=== PATIENT | male | born 1940 | race Caucasian/White ===

== ENCOUNTER → 2017-08-04 09:12 | Outpatient (CLI) | payer MEDICARE, SELFPAY ==
[2017-08-04 11:02] LABS: Absolute Lymphocyte Count 1.96 X10^3/ul (0.83-4.51); Absolute Neutrophil Count 5.1 X10^3/uL (2.0-7.7); Basophil# 0.06 X10^3/uL; Basophil% 0.7 % (0-1); Eosinophil# 0.18 X10^3/uL; Eosinophils% 2.1 % (0-5); Hematocrit 34.6 % (40-54); Hemoglobin 11.7 g/dl (13.0-16.5); Lymphocyte # 1.96 X10^3/ul (4.0); Lymphocyte % 23.2 % (19-41); Mean Corp Hgb Conc 33.8 g/gl (32-36); Mean Corpuscular Hgb 31.2 pg (27.0-32.0); Mean Corpuscular Volume 92.3 fL (80-94); Mean Platelet Vol. 11.7 fl (6.2-12.0); Monocyte# 1.06 X10^3/uL; Monocyte% 12.5 % (0-10); Neutrophil # 5.13 X10^3/uL (2.7-7.7); Neutrophil % 60.8 % (47-70); Platelet Count 226 K/mm3 (150-450); RBC Distribution Width CV 15.1 % (11.6-14.6); RBC Distribution Width SD 48.8 fl (35.1-43.9); Red Blood Count 3.75 M/mm3 (4.6-6.2); White Blood Count 8.5 K/mm3 (4.4-11.0)
[2017-08-04 11:12] LABS: POSITIVE COUNT NO; POSITIVE DIFFERENTIAL NO; POSITIVE MORPHOLOGY NO
[2017-08-04 11:28] LABS: ALB/GLOB Ratio 1.1 RATIO (0.9-2.4); AST(SGOT) 19 U/L (15-37); Alanine Aminotransfer ALT/SGPT 23 U/L (16-61); Albumin, Serum 3.9 g/dL (3.2-5.0); Alkaline Phosphatase 88 U/L (45-117); Anion Gap 7 (5-15); BUN 30 mg/dL (7-18); BUN/Creat Ratio 23.6 RATIO (10-20); Calcium,Total 8.8 mg/dL (8.5-10.1); Chloride 108 mmol/L (98-107); Creatinine, Serum 1.27 mg/dL (0.70-1.30); EST Glomerular Filtration Rate 59 mL/min (>60); Est Glom Filt Rate - Afr Amer 71 mL/min (>60); Globulin 3.6 g/dL (2.2-4.2); Glucose 117 mg/dL (74-106); PSA,Total - Annual Screen 2.12 ng/mL (0.00-4.00); Potassium 4.1 mmol/L (3.5-5.1); Protein, Total 7.5 g/dL (6.4-8.2); Sodium Level 140 mmol/L (136-145)
== END ==
PROVIDERS: Family Provider Family Medicine Geriatric Medicine; PCP Family Medicine Geriatric Medicine; Visit Provider Internal Medicine Rheumatology
DX: Z12.5 Encounter for screening for malignant neoplasm of prostate (principal); M06.4 Inflammatory polyarthropathy; K21.9 Gastro-esophageal reflux disease without esophagitis; I10 Essential (primary) hypertension; E11.9 Type 2 diabetes mellitus without complications; E78.5 Hyperlipidemia, unspecified; N40.1 Benign prostatic hyperplasia with lower urinary tract symptoms; Z79.899 Other long term (current) drug therapy
CPT/HCPCS: 36415; 80053; 84153; 85025; G0103

== ENCOUNTER → 2017-10-05 14:45 | Outpatient (CLI) | payer MEDICARE, SELFPAY ==
--- NOTE | 2017-10-05 14:45 | DT_ITS ---
This patient was seen during an EMR downtime October 05, 2017 - October 12, 2017. This patient may have a combination of paper and electronic documentation or all paper documentation. All documentation is viewable within the e-chart portion of eflow for each patient visit.
[2017-10-12 17:43] LABS: Albumin, Serum 3.8 g/dL (3.2-5.0); BUN 16 mg/dL (7-18); BUN/Creat Ratio 12.4 RATIO (10-20); Calcium,Total 8.6 mg/dL (8.5-10.1); Chloride 111 mmol/L (98-107); Creatinine, Serum 1.29 mg/dL (0.70-1.30); EST Glomerular Filtration Rate 58 mL/min (>60); Est Glom Filt Rate - Afr Amer 70 mL/min (>60); Glucose 74 mg/dL (74-106); Phosphorus 3.2 mg/dL (2.5-4.9); Potassium 3.7 mmol/L (3.5-5.1); Sodium Level 140 mmol/L (136-145)
== END ==
PROVIDERS: Family Provider Family Medicine Geriatric Medicine; PCP Family Medicine Geriatric Medicine; Visit Provider Internal Medicine Nephrology
DX: E11.22 Type 2 diabetes mellitus with diabetic chronic kidney disease (principal); N18.3 Chronic kidney disease, stage 3 (moderate)
CPT/HCPCS: 36415; 80069; 82043; 82570

== ENCOUNTER → 2017-11-03 11:16 | Outpatient (CLI) | payer MEDICARE, SELFPAY ==
[2017-11-03 14:28] LABS: AST(SGOT) 23 U/L (15-37); Absolute Lymphocyte Count 2.36 X10^3/ul (0.83-4.51); Absolute Neutrophil Count 4.2 X10^3/uL (2.0-7.7); Alanine Aminotransfer ALT/SGPT 29 U/L (16-61); Albumin, Serum 3.7 g/dL (3.2-5.0); Alkaline Phosphatase 84 U/L (45-117); Anion Gap 11 (5-15); BUN 20 mg/dL (7-18); BUN/Creat Ratio 15.4 RATIO (10-20); Basophil# 0.06 X10^3/uL; Basophil% 0.8 % (0-1); Calcium,Total 8.3 mg/dL (8.5-10.1); Chloride 107 mmol/L (98-107); EST Glomerular Filtration Rate 57 mL/min (>60); Eosinophil# 0.21 X10^3/uL; Eosinophils% 2.7 % (0-5); Est Glom Filt Rate - Afr Amer 69 mL/min (>60); Globulin 3.6 g/dL (2.2-4.2); Glucose 86 mg/dL (74-106); Hematocrit 32.3 % (40-54); Hemoglobin 10.8 g/dl (13.0-16.5); Lymphocyte # 2.36 X10^3/ul (4.0); Lymphocyte % 30.8 % (19-41); Mean Corp Hgb Conc 33.4 g/gl (32-36); Mean Corpuscular Hgb 30.4 pg (27.0-32.0); Mean Platelet Vol. 11.1 fl (6.2-12.0); Monocyte# 0.79 X10^3/uL; Monocyte% 10.3 % (0-10); Neutrophil # 4.19 X10^3/uL (2.7-7.7); Neutrophil % 54.7 % (47-70); Platelet Count 229 K/mm3 (150-450); Potassium 3.6 mmol/L (3.5-5.1); Protein, Total 7.3 g/dL (6.4-8.2); RBC Distribution Width CV 15.8 % (11.6-14.6); RBC Distribution Width SD 51.6 fl (35.1-43.9); Red Blood Count 3.55 M/mm3 (4.6-6.2); Sodium Level 141 mmol/L (136-145); White Blood Count 7.7 K/mm3 (4.4-11.0)
[2017-11-03 14:31] LABS: POSITIVE COUNT NO; POSITIVE DIFFERENTIAL NO; POSITIVE MORPHOLOGY NO
== END ==
PROVIDERS: Family Provider Family Medicine Geriatric Medicine; PCP Family Medicine Geriatric Medicine; Visit Provider Internal Medicine Rheumatology
DX: M06.4 Inflammatory polyarthropathy (principal); K21.9 Gastro-esophageal reflux disease without esophagitis; I10 Essential (primary) hypertension; E11.9 Type 2 diabetes mellitus without complications; E78.5 Hyperlipidemia, unspecified; N40.1 Benign prostatic hyperplasia with lower urinary tract symptoms; Z79.899 Other long term (current) drug therapy
CPT/HCPCS: 36415; 80053; 85025

== ENCOUNTER → 2017-11-09 11:22 | Outpatient (CLI) | payer MEDICARE, SELFPAY ==
[2017-11-09 12:57] LABS: Vitamin D,25 Hydroxy 13.2 ng/mL (29.95-100.01)
[2017-11-09 12:59] LABS: ALB/GLOB Ratio 1.1 RATIO (0.9-2.4); AST(SGOT) 22 U/L (15-37); Alanine Aminotransfer ALT/SGPT 29 U/L (16-61); Albumin, Serum 3.9 g/dL (3.2-5.0); Alkaline Phosphatase 82 U/L (45-117); Anion Gap 8 (5-15); BUN 22 mg/dL (7-18); BUN/Creat Ratio 17.2 RATIO (10-20); Calcium,Total 8.6 mg/dL (8.5-10.1); Chloride 108 mmol/L (98-107); Creatinine, Serum 1.28 mg/dL (0.70-1.30); EST Glomerular Filtration Rate 58 mL/min (>60); Est Glom Filt Rate - Afr Amer 70 mL/min (>60); Globulin 3.7 g/dL (2.2-4.2); Glucose 79 mg/dL (74-106); Protein, Total 7.6 g/dL (6.4-8.2); Sodium Level 141 mmol/L (136-145); Thyroid Stim Hormone (TSH) 1.13 uIU/mL (0.358-3.74)
[2017-11-09 13:07] LABS: Absolute Lymphocyte Count 2.08 X10^3/ul (0.83-4.51); Absolute Neutrophil Count 4.1 X10^3/uL (2.0-7.7); Basophil# 0.09 X10^3/uL; Basophil% 1.2 % (0-1); Eosinophils% 2.7 % (0-5); Hematocrit 35.8 % (40-54); Hemoglobin 11.7 g/dl (13.0-16.5); Lymphocyte # 2.08 X10^3/ul (4.0); Lymphocyte % 27.9 % (19-41); Mean Corp Hgb Conc 32.7 g/gl (32-36); Mean Corpuscular Hgb 30.2 pg (27.0-32.0); Mean Corpuscular Volume 92.3 fL (80-94); Mean Platelet Vol. 11.4 fl (6.2-12.0); Monocyte# 0.92 X10^3/uL; Monocyte% 12.3 % (0-10); Neutrophil # 4.13 X10^3/uL (2.7-7.7); Neutrophil % 55.4 % (47-70); Platelet Count 233 K/mm3 (150-450); RBC Distribution Width CV 15.9 % (11.6-14.6); RBC Distribution Width SD 53.3 fl (35.1-43.9); Red Blood Count 3.88 M/mm3 (4.6-6.2); White Blood Count 7.5 K/mm3 (4.4-11.0)
[2017-11-09 13:09] LABS: POSITIVE COUNT NO; POSITIVE DIFFERENTIAL NO; POSITIVE MORPHOLOGY NO
== END ==
PROVIDERS: Family Provider Family Medicine Geriatric Medicine; PCP Family Medicine Geriatric Medicine; Visit Provider Family Medicine Geriatric Medicine
DX: E11.9 Type 2 diabetes mellitus without complications (principal); E23.6 Other disorders of pituitary gland; E55.9 Vitamin D deficiency, unspecified; I10 Essential (primary) hypertension
CPT/HCPCS: 36415; 80053; 82306; 84403; 84443; 85025

== ENCOUNTER → 2018-02-01 11:03 | Outpatient (CLI) | payer MEDICARE, SELFPAY ==
[2018-02-01 12:12] LABS: Absolute Lymphocyte Count 2.18 X10^3/ul (0.83-4.51); Absolute Neutrophil Count 4.7 X10^3/uL (2.0-7.7); Basophil# 0.05 X10^3/uL; Basophil% 0.6 % (0-1); Eosinophils% 2.5 % (0-5); Hematocrit 34.9 % (40-54); Hemoglobin 11.5 g/dl (13.0-16.5); Lymphocyte # 2.18 X10^3/ul (4.0); Lymphocyte % 26.9 % (19-41); Mean Corpuscular Volume 91.1 fL (80-94); Mean Platelet Vol. 11.3 fl (6.2-12.0); Monocyte# 0.98 X10^3/uL; Monocyte% 12.1 % (0-10); Neutrophil # 4.65 X10^3/uL (2.7-7.7); Neutrophil % 57.5 % (47-70); Platelet Count 201 K/mm3 (150-450); RBC Distribution Width CV 15.7 % (11.6-14.6); RBC Distribution Width SD 51.4 fl (35.1-43.9); Red Blood Count 3.83 M/mm3 (4.6-6.2); White Blood Count 8.1 K/mm3 (4.4-11.0)
[2018-02-01 12:22] LABS: POSITIVE COUNT NO; POSITIVE DIFFERENTIAL NO; POSITIVE MORPHOLOGY NO
[2018-02-01 12:32] LABS: ALB/GLOB Ratio 1.2 RATIO (0.9-2.4); AST(SGOT) 17 U/L (15-37); Alanine Aminotransfer ALT/SGPT 25 U/L (16-61); Albumin, Serum 4.1 g/dL (3.2-5.0); Alkaline Phosphatase 77 U/L (45-117); Anion Gap 8 (5-15); BUN 24 mg/dL (7-18); Calcium,Total 8.7 mg/dL (8.5-10.1); Chloride 105 mmol/L (98-107); Creatinine, Serum 1.33 mg/dL (0.70-1.30); EST Glomerular Filtration Rate 56 mL/min (>60); Est Glom Filt Rate - Afr Amer 67 mL/min (>60); Globulin 3.5 g/dL (2.2-4.2); Glucose 84 mg/dL (74-106); Potassium 3.9 mmol/L (3.5-5.1); Protein, Total 7.6 g/dL (6.4-8.2); Sodium Level 138 mmol/L (136-145)
== END ==
PROVIDERS: Family Provider Family Medicine Geriatric Medicine; PCP Family Medicine Geriatric Medicine; Referring Provider Internal Medicine Rheumatology; Visit Provider Internal Medicine Rheumatology
DX: M06.4 Inflammatory polyarthropathy (principal); K21.9 Gastro-esophageal reflux disease without esophagitis; I10 Essential (primary) hypertension; E11.9 Type 2 diabetes mellitus without complications; E78.5 Hyperlipidemia, unspecified; N40.1 Benign prostatic hyperplasia with lower urinary tract symptoms; Z79.899 Other long term (current) drug therapy
CPT/HCPCS: 36415; 80053; 85025

== ENCOUNTER → 2018-05-05 11:30 | Outpatient (CLI) | payer MEDICARE, SELFPAY ==
[2017-05-24 11:01] VITALS: BMI 33.5
[2018-05-05 13:08] LABS: Absolute Lymphocyte Count 2.26 X10^3/ul (0.83-4.51); Basophil% 0.8 % (0-1); Eosinophils% 1.7 % (0-5); Hematocrit 32.5 % (40-54); Hemoglobin 10.9 g/dl (13.0-16.5); Lymphocyte # 2.26 X10^3/ul (4.0); Lymphocyte % 18.8 % (19-41); Mean Corp Hgb Conc 33.5 g/gl (32-36); Mean Corpuscular Hgb 31.2 pg (27.0-32.0); Mean Corpuscular Volume 93.1 fL (80-94); Mean Platelet Vol. 11.3 fl (6.2-12.0); Monocyte% 10.8 % (0-10); Neutrophil % 66.4 % (47-70); Platelet Count 252 K/mm3 (150-450); RBC Distribution Width SD 48.5 fl (35.1-43.9); Red Blood Count 3.49 M/mm3 (4.6-6.2)
[2018-05-05 13:09] LABS: POSITIVE COUNT NO; POSITIVE DIFFERENTIAL NO; POSITIVE MORPHOLOGY NO
[2018-05-05 13:28] LABS: ALB/GLOB Ratio 1.1 RATIO (0.9-2.4); AST(SGOT) 23 U/L (15-37); Alanine Aminotransfer ALT/SGPT 27 U/L (16-61); Albumin, Serum 3.9 g/dL (3.2-5.0); Alkaline Phosphatase 84 U/L (45-117); Anion Gap 9 (5-15); BUN 23 mg/dL (7-18); BUN/Creat Ratio 17.3 RATIO (10-20); Calcium,Total 8.6 mg/dL (8.5-10.1); Chloride 108 mmol/L (98-107); Creatinine, Serum 1.33 mg/dL (0.70-1.30); EST Glomerular Filtration Rate 55 mL/min (>60); Est Glom Filt Rate - Afr Amer 67 mL/min (>60); Globulin 3.7 g/dL (2.2-4.2); Glucose 67 mg/dL (74-106); Potassium 3.8 mmol/L (3.5-5.1); Protein, Total 7.6 g/dL (6.4-8.2); Sodium Level 138 mmol/L (136-145)
== END ==
PROVIDERS: Family Provider Family Medicine Geriatric Medicine; PCP Family Medicine Geriatric Medicine; Referring Provider Internal Medicine Rheumatology; Visit Provider Internal Medicine Rheumatology
DX: M06.4 Inflammatory polyarthropathy (principal); K21.9 Gastro-esophageal reflux disease without esophagitis; I10 Essential (primary) hypertension; E11.9 Type 2 diabetes mellitus without complications; E78.5 Hyperlipidemia, unspecified; N40.1 Benign prostatic hyperplasia with lower urinary tract symptoms; Z79.899 Other long term (current) drug therapy
CPT/HCPCS: 36415; 80053; 85025

== ENCOUNTER → 2018-05-10 14:04 | Outpatient (CLI) | payer MEDICARE, SELFPAY ==
[2017-05-24 11:01] VITALS: BMI 33.5
[2018-05-10 17:58] LABS: Absolute Lymphocyte Count 2.12 X10^3/ul (0.83-4.51); Absolute Neutrophil Count 6.9 X10^3/uL (2.0-7.7); Basophil# 0.14 X10^3/uL; Basophil% 1.3 % (0-1); Eosinophil# 0.31 X10^3/uL; Eosinophils% 2.9 % (0-5); Hematocrit 33.7 % (40-54); Hemoglobin 11.4 g/dl (13.0-16.5); Lymphocyte # 2.12 X10^3/ul (4.0); Lymphocyte % 19.6 % (19-41); Mean Corp Hgb Conc 33.8 g/gl (32-36); Mean Corpuscular Hgb 31.8 pg (27.0-32.0); Mean Corpuscular Volume 94.1 fL (80-94); Mean Platelet Vol. 11.3 fl (6.2-12.0); Monocyte# 1.13 X10^3/uL; Monocyte% 10.5 % (0-10); Neutrophil # 6.93 X10^3/uL (2.7-7.7); Neutrophil % 64.2 % (47-70); Platelet Count 254 K/mm3 (150-450); RBC Distribution Width CV 15.3 % (11.6-14.6); RBC Distribution Width SD 49.9 fl (35.1-43.9); Red Blood Count 3.58 M/mm3 (4.6-6.2); White Blood Count 10.8 K/mm3 (4.4-11.0)
[2018-05-10 18:12] LABS: Vitamin D,25 Hydroxy 16.7 ng/mL (29.95-100.01)
[2018-05-10 18:20] LABS: POSITIVE COUNT NO; POSITIVE DIFFERENTIAL NO; POSITIVE MORPHOLOGY NO
[2018-05-10 18:29] LABS: ALB/GLOB Ratio 1.1 RATIO (0.9-2.4); AST(SGOT) 20 U/L (15-37); Alanine Aminotransfer ALT/SGPT 28 U/L (16-61); Alkaline Phosphatase 93 U/L (45-117); Anion Gap 11 (5-15); BUN 27 mg/dL (7-18); BUN/Creat Ratio 20.3 RATIO (10-20); Calcium,Total 8.6 mg/dL (8.5-10.1); Chloride 107 mmol/L (98-107); Creatinine, Serum 1.33 mg/dL (0.70-1.30); EST Glomerular Filtration Rate 55 mL/min (>60); Est Glom Filt Rate - Afr Amer 67 mL/min (>60); Globulin 3.6 g/dL (2.2-4.2); Glucose 94 mg/dL (74-106); Potassium 4.1 mmol/L (3.5-5.1); Protein, Total 7.6 g/dL (6.4-8.2); Sodium Level 138 mmol/L (136-145); Thyroid Stim Hormone (TSH) 0.75 uIU/mL (0.358-3.74); Uric Acid 6.2 mg/dL (3.5-7.2)
== END ==
PROVIDERS: Family Provider Family Medicine Geriatric Medicine; PCP Family Medicine Geriatric Medicine; Visit Provider Family Medicine Geriatric Medicine
DX: E11.9 Type 2 diabetes mellitus without complications (principal); E55.9 Vitamin D deficiency, unspecified; E23.6 Other disorders of pituitary gland; F52.8 Other sexual dysfunction not due to a substance or known physiological condition; I10 Essential (primary) hypertension; M10.9 Gout, unspecified
CPT/HCPCS: 36415; 80053; 82306; 84403; 84443; 84550; 85025

== ENCOUNTER → 2018-06-07 11:03 | Outpatient (CLI) | payer MEDICARE, SELFPAY ==
[2017-05-24 11:01] VITALS: BMI 33.5
[2018-06-07 12:51] LABS: Albumin, Serum 3.9 g/dL (3.2-5.0); BUN 23 mg/dL (7-18); BUN/Creat Ratio 15.6 RATIO (10-20); Calcium,Total 8.5 mg/dL (8.5-10.1); Chloride 107 mmol/L (98-107); Creatinine, Serum 1.47 mg/dL (0.70-1.30); EST Glomerular Filtration Rate 49 mL/min (>60); Est Glom Filt Rate - Afr Amer 60 mL/min (>60); Glucose 97 mg/dL (74-106); Phosphorus 3.2 mg/dL (2.5-4.9); Sodium Level 138 mmol/L (136-145)
[2018-06-07 13:22] LABS: PTHIN 58.1 pg/mL (18.4-80.1)
== END ==
PROVIDERS: Family Provider Family Medicine Geriatric Medicine; PCP Family Medicine Geriatric Medicine; Referring Provider Internal Medicine Nephrology; Visit Provider Internal Medicine Nephrology
DX: N18.3 Chronic kidney disease, stage 3 (moderate) (principal)
CPT/HCPCS: 36415; 80069; 83970

== ENCOUNTER → 2018-07-26 11:22 | Outpatient (CLI) | payer MEDICARE, SELFPAY ==
[2017-05-24 11:01] VITALS: BMI 33.5
[2018-07-26 13:55] LABS: Absolute Lymphocyte Count 1.34 X10^3/ul (0.83-4.51); Absolute Neutrophil Count 7.6 X10^3/uL (2.0-7.7); Basophil# 0.06 X10^3/uL; Basophil% 0.6 % (0-1); Eosinophil# 0.04 X10^3/uL; Eosinophils% 0.4 % (0-5); Hematocrit 32.9 % (40-54); Hemoglobin 10.9 g/dl (13.0-16.5); Lymphocyte # 1.34 X10^3/ul (4.0); Lymphocyte % 13.5 % (19-41); Mean Corp Hgb Conc 33.1 g/gl (32-36); Mean Corpuscular Hgb 31.1 pg (27.0-32.0); Mean Corpuscular Volume 93.7 fL (80-94); Mean Platelet Vol. 11.4 fl (6.2-12.0); Monocyte# 0.87 X10^3/uL; Monocyte% 8.7 % (0-10); Neutrophil # 7.58 X10^3/uL (2.7-7.7); Neutrophil % 76.1 % (47-70); Platelet Count 220 K/mm3 (150-450); RBC Distribution Width CV 14.8 % (11.6-14.6); RBC Distribution Width SD 47.9 fl (35.1-43.9); Red Blood Count 3.51 M/mm3 (4.6-6.2)
[2018-07-26 14:06] LABS: POSITIVE COUNT NO; POSITIVE DIFFERENTIAL NO; POSITIVE MORPHOLOGY NO
[2018-07-26 14:08] LABS: ALB/GLOB Ratio 1.1 RATIO (0.9-2.4); AST(SGOT) 24 U/L (15-37); Alanine Aminotransfer ALT/SGPT 29 U/L (16-61); Alkaline Phosphatase 97 U/L (45-117); Anion Gap 9 (5-15); BUN 22 mg/dL (7-18); BUN/Creat Ratio 16.4 RATIO (10-20); Calcium,Total 8.9 mg/dL (8.5-10.1); Chloride 104 mmol/L (98-107); Creatinine, Serum 1.34 mg/dL (0.70-1.30); EST Glomerular Filtration Rate 55 mL/min (>60); Est Glom Filt Rate - Afr Amer 66 mL/min (>60); Globulin 3.7 g/dL (2.2-4.2); Glucose 174 mg/dL (74-106); Potassium 4.1 mmol/L (3.5-5.1); Protein, Total 7.7 g/dL (6.4-8.2); Sodium Level 136 mmol/L (136-145)
== END ==
PROVIDERS: Family Provider Family Medicine Geriatric Medicine; PCP Family Medicine Geriatric Medicine; Referring Provider Internal Medicine Rheumatology; Visit Provider Internal Medicine Rheumatology
DX: M06.4 Inflammatory polyarthropathy (principal); K21.9 Gastro-esophageal reflux disease without esophagitis; I10 Essential (primary) hypertension; E11.9 Type 2 diabetes mellitus without complications; E78.5 Hyperlipidemia, unspecified; N40.1 Benign prostatic hyperplasia with lower urinary tract symptoms; Z79.899 Other long term (current) drug therapy
CPT/HCPCS: 36415; 80053; 85025

== ENCOUNTER → 2018-10-04 | Outpatient (CLI) | payer MEDICARE, SELFPAY ==
[2017-05-24 11:01] VITALS: BMI 33.5
[2018-10-04 16:01] LABS: ALB/GLOB Ratio 1.1 RATIO (0.9-2.4); AST(SGOT) 21 U/L (15-37); Alanine Aminotransfer ALT/SGPT 24 U/L (16-61); Albumin, Serum 3.9 g/dL (3.2-5.0); Alkaline Phosphatase 94 U/L (45-117); Anion Gap 9 (5-15); BUN 23 mg/dL (7-18); BUN/Creat Ratio 17.7 RATIO (10-20); Calcium,Total 8.7 mg/dL (8.5-10.1); Chloride 107 mmol/L (98-107); EST Glomerular Filtration Rate 57 mL/min (>60); Est Glom Filt Rate - Afr Amer 69 mL/min (>60); Globulin 3.6 g/dL (2.2-4.2); Glucose 101 mg/dL (74-106); Potassium 3.8 mmol/L (3.5-5.1); Protein, Total 7.5 g/dL (6.4-8.2); Sodium Level 140 mmol/L (136-145)
[2018-10-04 16:45] LABS: Absolute Lymphocyte Count 1.67 X10^3/ul (0.83-4.51); Absolute Neutrophil Count 6.3 X10^3/uL (2.0-7.7); Basophil# 0.04 X10^3/uL; Basophil% 0.4 % (0-1); Eosinophil# 0.14 X10^3/uL; Eosinophils% 1.5 % (0-5); Hematocrit 32.4 % (40-54); Hemoglobin 11.1 g/dl (13.0-16.5); Lymphocyte # 1.67 X10^3/ul (4.0); Lymphocyte % 18.4 % (19-41); Mean Corp Hgb Conc 34.3 g/gl (32-36); Mean Corpuscular Hgb 30.8 pg (27.0-32.0); Mean Platelet Vol. 11.7 fl (6.2-12.0); Monocyte# 0.84 X10^3/uL; Monocyte% 9.2 % (0-10); Neutrophil # 6.33 X10^3/uL (2.7-7.7); Neutrophil % 69.6 % (47-70); Platelet Count 220 K/mm3 (150-450); RBC Distribution Width CV 14.8 % (11.6-14.6); RBC Distribution Width SD 47.1 fl (35.1-43.9); White Blood Count 9.1 K/mm3 (4.4-11.0)
[2018-10-04 17:28] LABS: POSITIVE COUNT NO; POSITIVE DIFFERENTIAL NO; POSITIVE MORPHOLOGY NO
== END | disposition home or self-care (01) ==
LOC: MTLAB 14:33
PROVIDERS: Family Provider Family Medicine Geriatric Medicine; PCP Family Medicine Geriatric Medicine; Referring Provider Internal Medicine Rheumatology; Visit Provider Internal Medicine Rheumatology
DX: M06.4 Inflammatory polyarthropathy (principal); Z79.899 Other long term (current) drug therapy; K21.9 Gastro-esophageal reflux disease without esophagitis; I10 Essential (primary) hypertension; E11.9 Type 2 diabetes mellitus without complications; E78.5 Hyperlipidemia, unspecified; N40.1 Benign prostatic hyperplasia with lower urinary tract symptoms
CPT/HCPCS: 36415; 80053; 85025

== ENCOUNTER → 2018-11-29 12:40 | Outpatient (CLI) | payer MEDICARE, SELFPAY ==
[2017-05-24 11:01] VITALS: BMI 33.5
[2018-11-29 13:55] LABS: Microalbumin,Random Urine 97.7 mg/L (NO RANGE EST.); Microalbumin:Creatinine Ratio 87.2 mg/g CRE (<30 mg/g CRE)
[2018-11-29 14:06] LABS: Albumin, Serum 3.5 g/dL (3.2-5.0); BUN 31 mg/dL (7-18); BUN/Creat Ratio 26.7 RATIO (10-20); Calcium,Total 8.4 mg/dL (8.5-10.1); Chloride 111 mmol/L (98-107); Creatinine, Serum 1.16 mg/dL (0.70-1.30); EST Glomerular Filtration Rate 65 mL/min (>60); Est Glom Filt Rate - Afr Amer 78 mL/min (>60); Glucose 97 mg/dL (74-106); Phosphorus 2.5 mg/dL (2.5-4.9); Potassium 3.5 mmol/L (3.5-5.1); Sodium Level 139 mmol/L (136-145)
[2018-11-29 22:04] LABS: Vitamin D,25 Hydroxy 26.2 ng/mL (29.95-100.01)
== END ==
PROVIDERS: Family Provider Family Medicine Geriatric Medicine; PCP Family Medicine Geriatric Medicine; Referring Provider Internal Medicine Nephrology; Visit Provider Internal Medicine Nephrology
DX: E11.22 Type 2 diabetes mellitus with diabetic chronic kidney disease (principal); N18.3 Chronic kidney disease, stage 3 (moderate); E55.9 Vitamin D deficiency, unspecified
CPT/HCPCS: 36415; 80069; 82043; 82306; 82570

== ENCOUNTER → 2018-12-21 08:50 | Outpatient (CLI) | payer MEDICARE, SELFPAY ==
[2017-05-24 11:01] VITALS: BMI 33.5
[2018-12-21 12:39] LABS: Absolute Lymphocyte Count 1.65 X10^3/uL (0.83-4.51); Absolute Neutrophil Count 7.9 X10^3/uL (2.0-7.7); Basophil# 0.09 X10^3/uL; Basophil% 0.8 % (0-1); Eosinophil# 0.14 X10^3/uL; Eosinophils% 1.3 % (0-5); Hematocrit 33.1 % (40-54); Lymphocyte # 1.65 X10^3/ul (4.0); Lymphocyte % 15.5 % (19-41); Mean Corp Hgb Conc 33.2 g/dL (32-36); Mean Corpuscular Hgb 31.4 pg (27.0-32.0); Mean Corpuscular Volume 94.6 fL (80-94); Mean Platelet Vol. 11.7 fl (6.2-12.0); Monocyte# 0.75 X10^3/uL; NRBC Flagged by Analyzer 0 % (0-5); Neutrophil # 7.91 X10^3/uL (2.7-7.7); Neutrophil % 74.3 % (47-70); Platelet Count 217 K/mm3 (150-450); RBC Distribution Width CV 14.9 % (11.6-14.6); White Blood Count 10.7 K/mm3 (4.4-11.0)
[2018-12-21 12:51] LABS: Vitamin D,25 Hydroxy 15.9 ng/mL (29.95-100.01)
[2018-12-21 12:59] LABS: AST(SGOT) 14 U/L (15-37); Alanine Aminotransfer ALT/SGPT 25 U/L (16-61); Albumin, Serum 3.8 g/dL (3.2-5.0); Alkaline Phosphatase 99 U/L (45-117); Anion Gap 5 (5-15); BUN 26 mg/dL (7-18); BUN/Creat Ratio 18.2 RATIO (10-20); Calcium,Total 8.8 mg/dL (8.5-10.1); Chloride 111 mmol/L (98-107); Creatinine, Serum 1.43 mg/dL (0.70-1.30); EST Glomerular Filtration Rate 51 mL/min (>60); Est Glom Filt Rate - Afr Amer 62 mL/min (>60); Globulin 3.7 g/dL (2.2-4.2); Glucose 144 mg/dL (74-106); Potassium 4.1 mmol/L (3.5-5.1); Protein, Total 7.5 g/dL (6.4-8.2); Sodium Level 140 mmol/L (136-145); Thyroid Stim Hormone (TSH) 0.85 uIU/mL (0.358-3.74)
== END ==
PROVIDERS: Family Provider Family Medicine Geriatric Medicine; PCP Family Medicine Geriatric Medicine; Visit Provider Family Medicine Geriatric Medicine
DX: E11.9 Type 2 diabetes mellitus without complications (principal); E55.9 Vitamin D deficiency, unspecified; F52.8 Other sexual dysfunction not due to a substance or known physiological condition; I10 Essential (primary) hypertension; M10.9 Gout, unspecified
CPT/HCPCS: 36415; 80053; 82306; 84403; 84443; 84550; 85025

== ENCOUNTER → 2018-12-28 09:43 | Outpatient (CLI) | payer MEDICARE, SELFPAY ==
[2018-12-28 12:17] LABS: Absolute Lymphocyte Count 1.94 X10^3/uL (0.83-4.51); Absolute Neutrophil Count 4.4 X10^3/uL (2.0-7.7); Basophil# 0.14 X10^3/uL; Basophil% 1.8 % (0-1); Eosinophil# 0.22 X10^3/uL; Eosinophils% 2.8 % (0-5); Hematocrit 33.9 % (40-54); Hemoglobin 11.5 g/dL (13.0-16.5); Lymphocyte # 1.94 X10^3/ul (4.0); Lymphocyte % 24.7 % (19-41); Mean Corp Hgb Conc 33.9 g/dL (32-36); Mean Corpuscular Hgb 31.9 pg (27.0-32.0); Mean Corpuscular Volume 93.9 fL (80-94); Mean Platelet Vol. 11.4 fl (6.2-12.0); Monocyte# 1.01 X10^3/uL; Monocyte% 12.8 % (0-10); NRBC Flagged by Analyzer 0 % (0-5); Neutrophil # 4.36 X10^3/uL (2.7-7.7); Neutrophil % 55.5 % (47-70); Platelet Count 215 K/mm3 (150-450); RBC Distribution Width CV 14.6 % (11.6-14.6); RBC Distribution Width SD 49.5 fl (35.1-43.9); Red Blood Count 3.61 M/mm3 (4.6-6.2); White Blood Count 7.9 K/mm3 (4.4-11.0)
[2018-12-28 12:55] LABS: ALB/GLOB Ratio 1.1 RATIO (0.9-2.4); AST(SGOT) 14 U/L (15-37); Alanine Aminotransfer ALT/SGPT 23 U/L (16-61); Albumin, Serum 3.7 g/dL (3.2-5.0); Alkaline Phosphatase 110 U/L (45-117); Anion Gap 7 (5-15); BUN 24 mg/dL (7-18); Calcium,Total 8.9 mg/dL (8.5-10.1); Chloride 108 mmol/L (98-107); Creatinine, Serum 1.33 mg/dL (0.70-1.30); EST Glomerular Filtration Rate 55 mL/min (>60); Est Glom Filt Rate - Afr Amer 67 mL/min (>60); Globulin 3.5 g/dL (2.2-4.2); Glucose 169 mg/dL (74-106); Potassium 3.9 mmol/L (3.5-5.1); Protein, Total 7.2 g/dL (6.4-8.2); Sodium Level 138 mmol/L (136-145)
== END ==
PROVIDERS: Family Provider Family Medicine Geriatric Medicine; PCP Family Medicine Geriatric Medicine; Referring Provider Internal Medicine Rheumatology; Visit Provider Internal Medicine Rheumatology
DX: N40.1 Benign prostatic hyperplasia with lower urinary tract symptoms (principal); E78.5 Hyperlipidemia, unspecified; E11.9 Type 2 diabetes mellitus without complications; I10 Essential (primary) hypertension; K21.9 Gastro-esophageal reflux disease without esophagitis; Z79.899 Other long term (current) drug therapy; M06.4 Inflammatory polyarthropathy
CPT/HCPCS: 36415; 80053; 85025

== ENCOUNTER → 2019-02-21 16:45 | Outpatient (CLI) | payer MEDICARE, SELFPAY ==
[2017-05-24 11:01] VITALS: BMI 33.5
--- NOTE | 2019-02-21 17:44 | RAD_ITS ---
STUDY: X-RAY - ABDOMEN/PELVIS REASON FOR EXAM: Male, 78 years old. Fatigue TECHNIQUE: 3 COMPARISON: None. FINDINGS: There is no bowel obstruction. There is air and stool to the level of the rectum. The visualized osseous structures are within normal limits. Moderate degenerative changes are present at the bilateral hip joints. RAD/Abdomen Single View IMPRESSION: No bowel obstruction. Electronically Signed: Vaughn Weaver, at 18:46 EDT Tel , Service support ,
--- NOTE | 2019-02-21 17:45 | RAD_ITS ---
STUDY: X-RAY CHEST REASON FOR EXAM: Male, 78 years old. Chest pain TECHNIQUE: PA and lateral views of the chest COMPARISON: None. FINDINGS: There is no consolidation. There is mild interstitial prominence in the lower lung zones. There are no pleural effusions. There is no pneumothorax. The heart is normal in size. The visualized osseous structures are within normal limits. RAD/Chest PA and Lateral IMPRESSION: No consolidation. Mild interstitial prominence, which can occur secondary to mild edema, inflammatory process, or fibrosis. Correlate clinically. Electronically Signed: Vaughn Weaver, at 18:26 EDT Tel , Service support ,
[2019-02-21 17:48] LABS: Absolute Lymphocyte Count 1.79 X10^3/uL (0.83-4.51); Absolute Neutrophil Count 7.2 X10^3/uL (2.0-7.7); Basophil# 0.08 X10^3/uL; Basophil% 0.7 % (0-1); Eosinophil# 0.31 X10^3/uL; Eosinophils% 2.8 % (0-5); Hematocrit 31.7 % (40-54); Hemoglobin 10.4 g/dL (13.0-16.5); Lymphocyte # 1.79 X10^3/ul (4.0); Lymphocyte % 16.3 % (19-41); Mean Corp Hgb Conc 32.8 g/dL (32-36); Mean Corpuscular Hgb 31.1 pg (27.0-32.0); Mean Corpuscular Volume 94.9 fL (80-94); Mean Platelet Vol. 10.5 fl (6.2-12.0); Monocyte# 1.35 X10^3/uL; Monocyte% 12.3 % (0-10); NRBC Flagged by Analyzer 0 % (0-5); Neutrophil # 7.15 X10^3/uL (2.7-7.7); Neutrophil % 65.4 % (47-70); Platelet Count 275 K/mm3 (150-450); RBC Distribution Width CV 14.2 % (11.6-14.6); RBC Distribution Width SD 47.9 fl (35.1-43.9); Red Blood Count 3.34 M/mm3 (4.6-6.2)
[2019-02-21 17:58] LABS: D-Dimer Quantitative (DVT/PE) 0.45 FEU/ug/m (0.27-0.49)
[2019-02-21 18:09] LABS: BNP,B-Type NATRIURETIC PEPTIDE 52.6 pg/mL (0-100)
[2019-02-21 18:21] LABS: ALB/GLOB Ratio 0.7 RATIO (0.9-2.4); AST(SGOT) 14 U/L (15-37); Alanine Aminotransfer ALT/SGPT 20 U/L (16-61); Albumin, Serum 3.2 g/dL (3.2-5.0); Alkaline Phosphatase 80 U/L (45-117); Anion Gap 8 (5-15); BUN 29 mg/dL (7-18); BUN/Creat Ratio 20.4 RATIO (10-20); CPK Total, Creatine Kinase 192 U/L (39-308); Chloride 107 mmol/L (98-107); Creatinine, Serum 1.42 mg/dL (0.70-1.30); EST Glomerular Filtration Rate 51 mL/min (>60); Est Glom Filt Rate - Afr Amer 62 mL/min (>60); Globulin 4.3 g/dL (2.2-4.2); Glucose 111 mg/dL (74-106); Potassium 4.4 mmol/L (3.5-5.1); Protein, Total 7.5 g/dL (6.4-8.2); Sodium Level 138 mmol/L (136-145); Thyroid Stim Hormone (TSH) 0.75 uIU/mL (0.358-3.74)
[2019-02-23 15:31] LABS: Myoglobin, Serum 64 ng/mL (28-72)
== END ==
PROVIDERS: Family Provider Family Medicine Geriatric Medicine; PCP Family Medicine Geriatric Medicine; Referring Provider Family Medicine Geriatric Medicine; Visit Provider Family Medicine Geriatric Medicine
DX: I10 Essential (primary) hypertension (principal); N39.0 Urinary tract infection, site not specified; K56.41 Fecal impaction; R06.02 Shortness of breath
CPT/HCPCS: 36415; 71046; 74018; 80053; 82550; 83874; 83880; 84443; 84484; 85025; 85379; 87077; 87086; 87088

== ENCOUNTER → 2019-03-14 06:20 | Outpatient (CLI) | payer MEDICARE, SELFPAY ==
[2019-02-28 15:30] VITALS: BMI 30.7
--- NOTE | 2019-03-14 06:22 | ECHOCS_ITS ---
Reason For Study: CHEST PAIN Procedure This was a 2D Doppler, Color Flow transthoracic echocardiogram. The study was technically difficult. Due to body habitus. Contrast injection was performed. Left Ventricle Normal LV size. Moderate concentric left ventricular hypertrophy. Left ventricular systolic function is normal. The estimated ejection fraction is 65 %. Stage 1 diastolic dysfunction. No regional wall motion abnormalities noted. Atria The left atrium is moderately enlarged. The right atrium is moderately enlarged. Mitral Valve Normal mitral valve. Tricuspid Valve Normal tricuspid valve. Aortic Valve Trisinus/trileaflet aortic valve. Great Vessels Normal aortic root. The pulmonary artery is normal size. Normal inferior vena cava. Pericardium/Pleural No pericardial effusion. Medication Diluted definity 3.0ml given slow IV push to enhance endocardial definition. MMode/2D Measurements & Calculations LVIDd: 5.4 cm IVSd: 1.4 cm Ao root diam: 3.8 cm LVIDs: 3.5 cm LVPWd: 1.5 cm RVDd: 3.0 cm FS: 35.3 % LAV(MOD-bp): 106.7 ml LA A4 area: 28.1 cm2 LA dimension(2D): 4.1 cm LAV(MOD-bp) Indexed: 46.5 ml/m2 LAV(MOD-sp2): 111.7 ml LAV(MOD-sp4): 98.3 ml RA A4 area: 25.6 cm2 Time Measurements MV dec time: 0.21 sec Doppler Measurements & Calculations MV E max naun: 62.6 cm/sec Lat Peak E' Naun: 8.9 cm/sec Med Peak E' Naun: 6.7 cm/sec MV A max naun: 82.9 cm/sec E/E' lat: 7.0 E/E' med: 9.4 MV E/A: 0.76 Ao V2 max: 170.3 cm/sec LV V1 max: 128.4 cm/sec PA V2 max: 137.3 cm/sec Ao max P.6 mmHg LV V1 max P.6 mmHg Ao V2 mean: 117.3 cm/sec LV V1 mean P.6 mmHg Ao mean P.0 mmHg LV V1 mean: 90.0 cm/sec Ao V2 VTI: 38.3 cm LV V1 VTI: 30.2 cm Interpretation Summary Normal LV size. Moderate concentric left ventricular hypertrophy. Left ventricular systolic function is normal. The estimated ejection fraction is 65 %. Stage 1 diastolic dysfunction. Contrast injection was performed. Ordering Physician: Jacinto Green Referring Physician: Javon Performed By: Ena Cervantes, STEFANY, RVT
--- NOTE | 2019-03-14 09:18 | STRESSREP_ITS ---
Stress Test Report Exercise myocardial perfusion stress test. 78-year-old male with a history of hypertension and chronic anemia presenting with shortness of breath and fatigue. Stress protocol: Resting EKG demonstrates sinus bradycardia with a rate of 54 bpm normal intervals are noted resting blood pressures 138/70 mmHg. First-degree AV block is noted. The patient exercised according to regular William protocol for a total duration of 5 minutes. Patient completed 2 minutes into stage II of the William protocol the maximum heart rate attained was 134 bpm which was 93% of maximum predicted heart rate the maximum workload was 7 metabolic equivalents. At rest there were no ST or T wave changes noted suggest ischemia at peak exercise upsloping ST changes only were noted with no meet the criteria for ischemia. The resting blood pressures 138/70 with a peak blood pressure 160/64. No clinical angina was noted. Occasional premature ventricular complexes were noted. Myocardial perfusion protocol. 15.0 mCi of technetium 99m sestamibi was injected at rest. The patient exercised for 5 minutes attaining 7 metabolic equivalents. At peak exercise 4 5.0 mCi of technetium 99m sestamibi was injected stress images were obtained stress and rest images were reconstructed and compared in the short axis vertical long horizontal long axis. Perfusion SPECT analysis: Review of the stress images demonstrate normal uptake of tracer noted in all areas of myocardium the resting images similar demonstrate normal uptake of tracer noted in all rest myocardium. No areas of reversibility are noted suggest ischemia no previous infarct is noted. Gated SPECT analysis: The gated ejection fraction is noted to be 62%. Conclusion: Normal exercise myocardial perfusion stress test at a moderate workload. Preserved ejection fraction.
== END ==
PROVIDERS: Family Provider Family Medicine Geriatric Medicine; PCP Family Medicine Geriatric Medicine; Referring Provider Internal Medicine Cardiovascular Disease; Visit Provider Internal Medicine Cardiovascular Disease
DX: R06.02 Shortness of breath (principal)
CPT/HCPCS: 78452; 93017; 93306; A9500; Q9957; A4216; C8929

== ENCOUNTER → 2019-03-23 15:39 | Outpatient (CLI) | payer MEDICARE, SELFPAY ==
[2019-02-28 15:30] VITALS: BMI 30.7
[2019-03-23 17:05] LABS: Absolute Lymphocyte Count 2.07 X10^3/uL (0.83-4.51); Absolute Neutrophil Count 5.3 X10^3/uL (2.0-7.7); Basophil# 0.06 X10^3/uL; Basophil% 0.7 % (0-1); Eosinophil# 0.32 X10^3/uL; Eosinophils% 3.6 % (0-5); Hematocrit 31.6 % (40-54); Hemoglobin 10.6 g/dL (13.0-16.5); Lymphocyte # 2.07 X10^3/ul (4.0); Lymphocyte % 23.4 % (19-41); Mean Corp Hgb Conc 33.5 g/dL (32-36); Mean Corpuscular Hgb 31.5 pg (27.0-32.0); Mean Corpuscular Volume 93.8 fL (80-94); Mean Platelet Vol. 11.2 fl (6.2-12.0); Monocyte# 1.06 X10^3/uL; NRBC Flagged by Analyzer 0 % (0-5); Neutrophil # 5.27 X10^3/uL (2.7-7.7); Neutrophil % 59.6 % (47-70); Platelet Count 202 K/mm3 (150-450); RBC Distribution Width CV 15.9 % (11.6-14.6); Red Blood Count 3.37 M/mm3 (4.6-6.2); White Blood Count 8.8 K/mm3 (4.4-11.0)
== END ==
PROVIDERS: Family Provider Family Medicine Geriatric Medicine; PCP Family Medicine Geriatric Medicine; Visit Provider Family Medicine Geriatric Medicine
DX: R53.83 Other fatigue (principal)
CPT/HCPCS: 36415; 85025

== ENCOUNTER → 2019-03-28 10:36 | Outpatient (CLI) | payer MEDICARE, SELFPAY ==
[2019-02-28 15:30] VITALS: BMI 30.7
[2019-03-28 12:19] LABS: Absolute Lymphocyte Count 1.97 X10^3/uL (0.83-4.51); Basophil# 0.09 X10^3/uL; Basophil% 1.1 % (0-1); Eosinophil# 0.27 X10^3/uL; Eosinophils% 3.3 % (0-5); Hemoglobin 10.8 g/dL (13.0-16.5); Lymphocyte # 1.97 X10^3/ul (4.0); Lymphocyte % 24.1 % (19-41); Mean Corp Hgb Conc 32.7 g/dL (32-36); Mean Corpuscular Hgb 31.6 pg (27.0-32.0); Mean Corpuscular Volume 96.5 fL (80-94); Mean Platelet Vol. 11.6 fl (6.2-12.0); Monocyte# 0.79 X10^3/uL; Monocyte% 9.6 % (0-10); NRBC Flagged by Analyzer 0 % (0-5); Neutrophil # 4.97 X10^3/uL (2.7-7.7); Neutrophil % 60.7 % (47-70); Platelet Count 201 K/mm3 (150-450); RBC Distribution Width CV 15.6 % (11.6-14.6); RBC Distribution Width SD 53.9 fl (35.1-43.9); Red Blood Count 3.42 M/mm3 (4.6-6.2); White Blood Count 8.2 K/mm3 (4.4-11.0)
[2019-03-28 12:36] LABS: ALB/GLOB Ratio 0.9 RATIO (0.9-2.4); AST(SGOT) 18 U/L (15-37); Alanine Aminotransfer ALT/SGPT 22 U/L (16-61); Albumin, Serum 3.6 g/dL (3.2-5.0); Alkaline Phosphatase 77 U/L (45-117); Anion Gap 8 (5-15); BUN 21 mg/dL (7-18); Calcium,Total 8.7 mg/dL (8.5-10.1); Chloride 109 mmol/L (98-107); Creatinine, Serum 1.31 mg/dL (0.70-1.30); EST Glomerular Filtration Rate 56 mL/min (>60); Est Glom Filt Rate - Afr Amer 68 mL/min (>60); Globulin 3.8 g/dL (2.2-4.2); Glucose 197 mg/dL (74-106); Potassium 4.1 mmol/L (3.5-5.1); Protein, Total 7.4 g/dL (6.4-8.2); Sodium Level 140 mmol/L (136-145)
== END ==
PROVIDERS: Family Provider Family Medicine Geriatric Medicine; PCP Family Medicine Geriatric Medicine; Referring Provider Internal Medicine Rheumatology; Visit Provider Internal Medicine Rheumatology
DX: M06.4 Inflammatory polyarthropathy (principal); K21.9 Gastro-esophageal reflux disease without esophagitis; I10 Essential (primary) hypertension; E11.9 Type 2 diabetes mellitus without complications; E78.5 Hyperlipidemia, unspecified; N40.1 Benign prostatic hyperplasia with lower urinary tract symptoms; Z79.899 Other long term (current) drug therapy
CPT/HCPCS: 36415; 80053; 85025

== ENCOUNTER → 2019-03-28 11:41 | Outpatient (CLI) | payer MEDICARE, SELFPAY ==
[2019-02-28 15:30] VITALS: BMI 30.7
[2019-03-28 11:55] VITALS: BP 151/72; PULSE 55; RESP 18; TEMP 36.4; O2SAT 98; BMI 30.9
[2019-03-28 12:49] VITALS: BP 138/72; PULSE 86; RESP 16; TEMP 36.4; O2SAT 97
== END ==
PROVIDERS: Family Provider Family Medicine Geriatric Medicine; PCP Family Medicine Geriatric Medicine; Referring Provider Family Medicine Geriatric Medicine; Visit Provider Family Medicine Geriatric Medicine
DX: D50.9 Iron deficiency anemia, unspecified (principal); K90.9 Intestinal malabsorption, unspecified; M06.4 Inflammatory polyarthropathy; K21.9 Gastro-esophageal reflux disease without esophagitis; I10 Essential (primary) hypertension; E11.9 Type 2 diabetes mellitus without complications; E78.5 Hyperlipidemia, unspecified; N40.1 Benign prostatic hyperplasia with lower urinary tract symptoms; Z79.899 Other long term (current) drug therapy
CPT/HCPCS: 96365; 36415; 80053; 85025; J1756; J7050; A4216

== ENCOUNTER → 2019-03-30 12:45 | Outpatient (CLI) | payer MEDICARE, SELFPAY ==
[2019-02-28 15:30] VITALS: BMI 30.7
[2019-03-30 08:24] VITALS: BMI 31.9
[2019-03-30 13:08] VITALS: BP 126/64; PULSE 71; RESP 16; TEMP 36.1; O2SAT 97; BMI 30.9
[2019-03-30 14:05] VITALS: BP 112/55; PULSE 67; RESP 18; TEMP 36.4; O2SAT 97
== END ==
PROVIDERS: Family Provider Family Medicine Geriatric Medicine; PCP Family Medicine Geriatric Medicine; Referring Provider Family Medicine Geriatric Medicine; Visit Provider Family Medicine Geriatric Medicine
DX: D50.9 Iron deficiency anemia, unspecified (principal); K90.9 Intestinal malabsorption, unspecified
CPT/HCPCS: 96365; J1756; J7050; A4216

== ENCOUNTER → 2019-04-01 06:40 | Outpatient (CLI) | payer MEDICARE, SELFPAY ==
[2019-02-28 15:30] VITALS: BMI 30.7
[2019-03-30 13:08] VITALS: BMI 30.9
--- NOTE | 2019-04-02 09:25 | PFTCOMP_ITS ---
COMPLETE PULMONARY FUNCTION TEST INTERPRETATION Brief HPI: Patient is a 78 year old male, currently under the care of Dr. Criag, who presents to [facility] for complete pulmonary function tests secondary to diagnosis of dyspnea. Respiratory therapist reports good effort and reproducible results. Interpretation: Forced expiration spirometry shows no large airways obstructive ventilatory defect with an FEV1 of 95% predicted. There is no significant bronchodilator response by strict ATS criteria. Spirograms are of good quality and plateau normally. The respiratory flow volume loop shows a normal pattern. Lung volumes by body plethysmography show a normal total lung capacity at 6.21 L, 87% predicted. All other lung volumes are within normal limits. Diffusion capacity by carbon monoxide is normal at 84% predicted. The airway resistance is slightly elevated. No previous pulmonary function tests were available for review. Impression: These pulmonary function tests are grossly within normal limits. Lung volumes are at the lower limit of normal, so early restrictive disease cannot be excluded
== END ==
PROVIDERS: Family Provider Family Medicine Geriatric Medicine; PCP Family Medicine Geriatric Medicine; Referring Provider Family Medicine Geriatric Medicine; Visit Provider Family Medicine Geriatric Medicine
DX: R06.02 Shortness of breath (principal)
CPT/HCPCS: 94060; 94726; 94729

== ENCOUNTER → 2019-04-01 12:07 | Outpatient (CLI) | payer MEDICARE, SELFPAY ==
[2019-02-28 15:30] VITALS: BMI 30.7
[2019-03-30 13:08] VITALS: BMI 30.9
[2019-04-01 12:32] VITALS: BP 128/70; PULSE 69; RESP 16; TEMP 36.7; BMI 30.9
[2019-04-01 13:27] VITALS: BP 127/78; PULSE 68
== END ==
PROVIDERS: Family Provider Family Medicine Geriatric Medicine; PCP Family Medicine Geriatric Medicine; Referring Provider Family Medicine Geriatric Medicine; Visit Provider Family Medicine Geriatric Medicine
DX: D50.9 Iron deficiency anemia, unspecified (principal); K90.9 Intestinal malabsorption, unspecified; R06.02 Shortness of breath
CPT/HCPCS: 96365; 94060; 94726; 94729; J1756; J7050; A4216

== ENCOUNTER → 2019-04-04 09:43 | Outpatient (CLI) | payer MEDICARE, SELFPAY ==
[2019-02-28 15:30] VITALS: BMI 30.7
[2019-04-01 12:32] VITALS: BMI 30.9
[2019-04-04 09:49] VITALS: BP 131/65; PULSE 58; RESP 16; TEMP 36.2; O2SAT 98; BMI 30.9
[2019-04-04 10:38] VITALS: BP 119/69; PULSE 57; RESP 18; TEMP 36.2; O2SAT 96
== END ==
PROVIDERS: Family Provider Family Medicine Geriatric Medicine; PCP Family Medicine Geriatric Medicine; Referring Provider Family Medicine Geriatric Medicine; Visit Provider Family Medicine Geriatric Medicine
DX: D50.9 Iron deficiency anemia, unspecified (principal); K90.9 Intestinal malabsorption, unspecified
CPT/HCPCS: 96365; J1756; A4216

== ENCOUNTER → 2019-04-06 12:55 | Outpatient (CLI) | payer MEDICARE, SELFPAY ==
[2019-02-28 15:30] VITALS: BMI 30.7
[2019-04-04 09:49] VITALS: BMI 30.9
[2019-04-06 13:15] VITALS: BP 155/67; PULSE 77; RESP 14; TEMP 36.2; O2SAT 99; BMI 30.9
[2019-04-06 13:59] VITALS: BP 140/67; PULSE 56; RESP 18; TEMP 36.4; O2SAT 97
== END ==
PROVIDERS: Family Provider Family Medicine Geriatric Medicine; PCP Family Medicine Geriatric Medicine; Referring Provider Family Medicine Geriatric Medicine; Visit Provider Family Medicine Geriatric Medicine
DX: D50.9 Iron deficiency anemia, unspecified (principal); K90.9 Intestinal malabsorption, unspecified
CPT/HCPCS: 96365; J1756; J7050; A4216

== ENCOUNTER → 2019-04-21 12:08 | Outpatient (CLI) | payer MEDICARE, SELFPAY ==
[2019-04-06 13:15] VITALS: BMI 30.9
[2019-04-21 12:36] LABS: Absolute Lymphocyte Count 2.34 X10^3/uL (0.83-4.51); Basophil% 1.2 % (0-1); Eosinophil# 0.24 X10^3/uL; Eosinophils% 2.8 % (0-5); Hematocrit 33.1 % (40-54); Hemoglobin 11.1 g/dL (13.0-16.5); Lymphocyte # 2.34 X10^3/ul (4.0); Lymphocyte % 26.9 % (19-41); Mean Corp Hgb Conc 33.5 g/dL (32-36); Mean Corpuscular Hgb 31.9 pg (27.0-32.0); Mean Corpuscular Volume 95.1 fL (80-94); Mean Platelet Vol. 11.2 fl (6.2-12.0); Monocyte# 0.98 X10^3/uL; Monocyte% 11.3 % (0-10); NRBC Flagged by Analyzer 0 % (0-5); Neutrophil # 4.96 X10^3/uL (2.7-7.7); Platelet Count 218 K/mm3 (150-450); RBC Distribution Width CV 15.4 % (11.6-14.6); RBC Distribution Width SD 52.8 fl (35.1-43.9); Red Blood Count 3.48 M/mm3 (4.6-6.2); White Blood Count 8.7 K/mm3 (4.4-11.0)
== END ==
PROVIDERS: Family Provider Family Medicine Geriatric Medicine; PCP Family Medicine Geriatric Medicine; Visit Provider Family Medicine Geriatric Medicine
DX: D64.9 Anemia, unspecified (principal)
CPT/HCPCS: 36415; 85025

== ENCOUNTER → 2019-05-25 16:25 | Outpatient (CLI) | payer MEDICARE, SELFPAY ==
[2019-04-06 13:15] VITALS: BMI 30.9
--- NOTE | 2019-05-25 17:05 | RAD_ITS ---
STUDY: X-RAY CHEST REASON FOR EXAM: Male, 79 years old. Shortness of breath TECHNIQUE: Frontal and lateral views COMPARISON: February 21, 2019 FINDINGS: The lungs are clear and expanded. There is no demonstrated pleural abnormality. Normal size heart. Normal mediastinum and indira. Normal visualized pulmonary arteries. Normal visualized aortic arch and descending thoracic aorta. Degenerative changes of the thoracic spine. Old right clavicular injury. There is no demonstrated abnormality of the visualized soft tissue structures of the upper abdomen. RAD/Chest PA and Lateral IMPRESSION: Normal x-ray examination of the chest. Electronically Signed: Will Cuenca DO at 21:21 EST Tel [phone], Service support ,
[2019-05-25 17:56] LABS: Absolute Lymphocyte Count 2.04 X10^3/uL (0.83-4.51); Absolute Neutrophil Count 5.2 X10^3/uL (2.0-7.7); Basophil# 0.07 X10^3/uL; Basophil% 0.8 % (0-1); Eosinophil# 0.25 X10^3/uL; Eosinophils% 2.9 % (0-5); Hemoglobin 11.6 g/dL (13.0-16.5); Lymphocyte # 2.04 X10^3/ul (4.0); Lymphocyte % 23.3 % (19-41); Mean Corp Hgb Conc 34.1 g/dL (32-36); Mean Corpuscular Volume 93.9 fL (80-94); Mean Platelet Vol. 11.3 fl (6.2-12.0); Monocyte# 1.09 X10^3/uL; Monocyte% 12.5 % (0-10); NRBC Flagged by Analyzer 0 % (0-5); Neutrophil # 5.24 X10^3/uL (2.7-7.7); Neutrophil % 59.8 % (47-70); Platelet Count 218 K/mm3 (150-450); RBC Distribution Width CV 14.8 % (11.6-14.6); RBC Distribution Width SD 50.9 fl (35.1-43.9); Red Blood Count 3.62 M/mm3 (4.6-6.2); White Blood Count 8.8 K/mm3 (4.4-11.0)
[2019-05-25 18:21] LABS: AST(SGOT) 18 U/L (15-37); Alanine Aminotransfer ALT/SGPT 25 U/L (16-61); Alkaline Phosphatase 95 U/L (45-117); Anion Gap 7 (5-15); BUN 28 mg/dL (7-18); BUN/Creat Ratio 19.2 RATIO (10-20); Calcium,Total 9.2 mg/dL (8.5-10.1); Chloride 109 mmol/L (98-107); Creatinine, Serum 1.46 mg/dL (0.70-1.30); EST Glomerular Filtration Rate 50 mL/min (>60); Est Glom Filt Rate - Afr Amer 60 mL/min (>60); Ferritin 308 ng/mL (26-388); Globulin 3.9 g/dL (2.2-4.2); Glucose 131 mg/dL (74-106); Iron 72 ug/dL (65-175); Iron Binding Capacity,Total 302 ug/dL (250-450); Potassium 3.9 mmol/L (3.5-5.1); Protein, Total 7.9 g/dL (6.4-8.2); Sodium Level 138 mmol/L (136-145); Thyroid Stim Hormone (TSH) 1.11 uIU/mL (0.358-3.74)
== END ==
PROVIDERS: PCP Family Medicine Geriatric Medicine; Referring Provider Family Medicine Geriatric Medicine; Visit Provider Family Medicine Geriatric Medicine
DX: D50.9 Iron deficiency anemia, unspecified (principal); R53.83 Other fatigue; R06.02 Shortness of breath
CPT/HCPCS: 36415; 71046; 80053; 82728; 83540; 83550; 84443; 85025

== ENCOUNTER → 2019-05-26 11:53 | Outpatient (CLI) | payer MEDICARE, SELFPAY ==
[2019-04-06 13:15] VITALS: BMI 30.9
[2019-05-26 12:53] LABS: Anion Gap 3 (5-15); BUN 29 mg/dL (7-18); BUN/Creat Ratio 22.1 RATIO (10-20); Calcium,Total 8.7 mg/dL (8.5-10.1); Chloride 113 mmol/L (98-107); Creatinine, Serum 1.31 mg/dL (0.70-1.30); EST Glomerular Filtration Rate 56 mL/min (>60); Est Glom Filt Rate - Afr Amer 68 mL/min (>60); Glucose 108 mg/dL (74-106); Potassium 4.3 mmol/L (3.5-5.1); Sodium Level 139 mmol/L (136-145)
== END ==
PROVIDERS: PCP Family Medicine Geriatric Medicine; Visit Provider Family Medicine Geriatric Medicine
DX: E86.0 Dehydration (principal)
CPT/HCPCS: 36415; 80048

== ENCOUNTER → 2019-06-21 10:15 | Outpatient (CLI) | payer MEDICARE, SELFPAY ==
[2019-04-06 13:15] VITALS: BMI 30.9
[2019-06-21 12:39] LABS: Absolute Lymphocyte Count 1.94 X10^3/uL (0.83-4.51); Absolute Neutrophil Count 5.4 X10^3/uL (2.0-7.7); Basophil# 0.07 X10^3/uL; Basophil% 0.8 % (0-1); Eosinophil# 0.18 X10^3/uL; Eosinophils% 2.1 % (0-5); Hematocrit 32.9 % (40-54); Hemoglobin 11.2 g/dL (13.0-16.5); Lymphocyte # 1.94 X10^3/ul (4.0); Lymphocyte % 22.4 % (19-41); Mean Corpuscular Hgb 31.5 pg (27.0-32.0); Mean Corpuscular Volume 92.7 fL (80-94); Monocyte# 1.03 X10^3/uL; Monocyte% 11.9 % (0-10); NRBC Flagged by Analyzer 0 % (0-5); Neutrophil # 5.37 X10^3/uL (2.7-7.7); Neutrophil % 62.1 % (47-70); Platelet Count 194 K/mm3 (150-450); RBC Distribution Width CV 14.9 % (11.6-14.6); RBC Distribution Width SD 49.8 fl (35.1-43.9); Red Blood Count 3.55 M/mm3 (4.6-6.2); White Blood Count 8.7 K/mm3 (4.4-11.0)
[2019-06-21 13:03] LABS: ALB/GLOB Ratio 1.1 RATIO (0.9-2.4); AST(SGOT) 19 U/L (15-37); Alanine Aminotransfer ALT/SGPT 28 U/L (16-61); Albumin, Serum 3.8 g/dL (3.2-5.0); Alkaline Phosphatase 100 U/L (45-117); Anion Gap 8 (5-15); BUN 29 mg/dL (7-18); BUN/Creat Ratio 19.2 RATIO (10-20); Calcium,Total 8.8 mg/dL (8.5-10.1); Chloride 109 mmol/L (98-107); Creatinine, Serum 1.51 mg/dL (0.70-1.30); EST Glomerular Filtration Rate 48 mL/min (>60); Est Glom Filt Rate - Afr Amer 58 mL/min (>60); Globulin 3.5 g/dL (2.2-4.2); Glucose 192 mg/dL (74-106); Potassium 4.1 mmol/L (3.5-5.1); Protein, Total 7.3 g/dL (6.4-8.2); Sodium Level 139 mmol/L (136-145); Thyroid Stim Hormone (TSH) 1.15 uIU/mL (0.358-3.74); Uric Acid 5.8 mg/dL (3.5-7.2)
[2019-06-21 13:04] LABS: Vitamin D,25 Hydroxy 20.9 ng/mL (29.95-100.01)
== END ==
PROVIDERS: PCP Family Medicine Geriatric Medicine; Visit Provider Family Medicine Geriatric Medicine
DX: E11.9 Type 2 diabetes mellitus without complications (principal); E55.9 Vitamin D deficiency, unspecified; F52.8 Other sexual dysfunction not due to a substance or known physiological condition; M10.9 Gout, unspecified
CPT/HCPCS: 36415; 80053; 82306; 84403; 84443; 84550; 85025

== ENCOUNTER → 2019-06-23 13:17 | Outpatient (CLI) | payer MEDICARE, SELFPAY ==
[2019-04-06 13:15] VITALS: BMI 30.9
[2019-06-23 14:27] LABS: Absolute Lymphocyte Count 2.21 X10^3/uL (0.83-4.51); Absolute Neutrophil Count 5.4 X10^3/uL (2.0-7.7); Basophil# 0.05 X10^3/uL; Basophil% 0.6 % (0-1); Eosinophil# 0.13 X10^3/uL; Eosinophils% 1.5 % (0-5); Hematocrit 34.7 % (40-54); Hemoglobin 11.8 g/dL (13.0-16.5); Lymphocyte # 2.21 X10^3/ul (4.0); Lymphocyte % 25.6 % (19-41); Mean Corpuscular Hgb 31.2 pg (27.0-32.0); Mean Corpuscular Volume 91.8 fL (80-94); Mean Platelet Vol. 11.5 fl (6.2-12.0); Monocyte# 0.83 X10^3/uL; Monocyte% 9.6 % (0-10); NRBC Flagged by Analyzer 0 % (0-5); Neutrophil # 5.37 X10^3/uL (2.7-7.7); Neutrophil % 62.4 % (47-70); Platelet Count 215 K/mm3 (150-450); RBC Distribution Width CV 14.7 % (11.6-14.6); RBC Distribution Width SD 49.4 fl (35.1-43.9); Red Blood Count 3.78 M/mm3 (4.6-6.2); White Blood Count 8.6 K/mm3 (4.4-11.0)
[2019-06-23 14:58] LABS: ALB/GLOB Ratio 1.1 RATIO (0.9-2.4); AST(SGOT) 21 U/L (15-37); Alanine Aminotransfer ALT/SGPT 26 U/L (16-61); Alkaline Phosphatase 89 U/L (45-117); Anion Gap 6 (5-15); BUN 27 mg/dL (7-18); BUN/Creat Ratio 19.4 RATIO (10-20); Calcium,Total 9.3 mg/dL (8.5-10.1); Chloride 109 mmol/L (98-107); Creatinine, Serum 1.39 mg/dL (0.70-1.30); EST Glomerular Filtration Rate 53 mL/min (>60); Est Glom Filt Rate - Afr Amer 64 mL/min (>60); Globulin 3.8 g/dL (2.2-4.2); Glucose 143 mg/dL (74-106); Potassium 3.9 mmol/L (3.5-5.1); Protein, Total 7.8 g/dL (6.4-8.2); Sodium Level 137 mmol/L (136-145)
== END ==
PROVIDERS: PCP Family Medicine Geriatric Medicine; Referring Provider Internal Medicine Rheumatology; Visit Provider Internal Medicine Rheumatology
DX: M06.4 Inflammatory polyarthropathy (principal); K21.9 Gastro-esophageal reflux disease without esophagitis; I10 Essential (primary) hypertension; E11.9 Type 2 diabetes mellitus without complications; E78.5 Hyperlipidemia, unspecified; N40.1 Benign prostatic hyperplasia with lower urinary tract symptoms; Z79.899 Other long term (current) drug therapy
CPT/HCPCS: 36415; 80053; 85025

== ENCOUNTER → 2019-09-27 10:41 | Outpatient (CLI) | payer MEDICARE, SELFPAY ==
[2019-04-06 13:15] VITALS: BMI 30.9
[2019-09-27 12:36] LABS: Basophil# 0.05 X10^3/uL; Basophil% 0.5 % (0-1); Eosinophil# 0.11 X10^3/uL; Eosinophils% 1.1 % (0-5); Hematocrit 30.4 % (40-54); Hemoglobin 10.1 g/dL (13.0-16.5); Lymphocyte % 20.4 % (19-41); Mean Corp Hgb Conc 33.2 g/dL (32-36); Mean Corpuscular Volume 96.2 fL (80-94); Mean Platelet Vol. 11.6 fl (6.2-12.0); Monocyte# 0.97 X10^3/uL; Monocyte% 9.4 % (0-10); NRBC Flagged by Analyzer 0 % (0-5); Neutrophil # 6.95 X10^3/uL (2.7-7.7); Neutrophil % 67.7 % (47-70); Platelet Count 179 K/mm3 (150-450); RBC Distribution Width CV 15.6 % (11.6-14.6); RBC Distribution Width SD 53.8 fl (35.1-43.9); Red Blood Count 3.16 M/mm3 (4.6-6.2); White Blood Count 10.3 K/mm3 (4.4-11.0)
[2019-09-27 12:46] LABS: ALB/GLOB Ratio 1.1 RATIO (0.9-2.4); AST(SGOT) 14 U/L (15-37); Alanine Aminotransfer ALT/SGPT 26 U/L (16-61); Albumin, Serum 3.6 g/dL (3.2-5.0); Alkaline Phosphatase 107 U/L (45-117); Anion Gap 8 (5-15); BUN 35 mg/dL (7-18); BUN/Creat Ratio 23.2 RATIO (10-20); Calcium,Total 8.6 mg/dL (8.5-10.1); Chloride 107 mmol/L (98-107); Creatinine, Serum 1.51 mg/dL (0.70-1.30); EST Glomerular Filtration Rate 48 mL/min (>60); Est Glom Filt Rate - Afr Amer 58 mL/min (>60); Globulin 3.3 g/dL (2.2-4.2); Glucose 270 mg/dL (74-106); Protein, Total 6.9 g/dL (6.4-8.2); Sodium Level 137 mmol/L (136-145)
== END ==
PROVIDERS: PCP Family Medicine Geriatric Medicine; Referring Provider Internal Medicine Rheumatology; Visit Provider Internal Medicine Rheumatology
DX: M06.4 Inflammatory polyarthropathy (principal); K21.9 Gastro-esophageal reflux disease without esophagitis; I10 Essential (primary) hypertension; E11.9 Type 2 diabetes mellitus without complications; E78.5 Hyperlipidemia, unspecified; N40.1 Benign prostatic hyperplasia with lower urinary tract symptoms; Z79.899 Other long term (current) drug therapy
CPT/HCPCS: 36415; 80053; 85025

== ENCOUNTER → 2019-10-19 14:33 | Outpatient (CLI) | payer MEDICARE, SELFPAY ==
[2019-04-06 13:15] VITALS: BMI 30.9
[2019-10-19 16:48] LABS: Absolute Lymphocyte Count 1.28 X10^3/uL (0.83-4.51); Absolute Neutrophil Count 5.6 X10^3/uL (2.0-7.7); Basophil# 0.04 X10^3/uL; Basophil% 0.5 % (0-1); Eosinophil# 0.01 X10^3/uL; Eosinophils% 0.1 % (0-5); Hematocrit 32.4 % (40-54); Hemoglobin 10.6 g/dL (13.0-16.5); Lymphocyte # 1.28 X10^3/ul (4.0); Mean Corp Hgb Conc 32.7 g/dL (32-36); Mean Corpuscular Volume 97.9 fL (80-94); Mean Platelet Vol. 11.8 fl (6.2-12.0); Monocyte# 0.51 X10^3/uL; Monocyte% 6.8 % (0-10); NRBC Flagged by Analyzer 0 % (0-5); Neutrophil # 5.58 X10^3/uL (2.7-7.7); Platelet Count 194 K/mm3 (150-450); RBC Distribution Width CV 15.3 % (11.6-14.6); RBC Distribution Width SD 54.3 fl (35.1-43.9); Red Blood Count 3.31 M/mm3 (4.6-6.2); White Blood Count 7.5 K/mm3 (4.4-11.0)
[2019-10-19 17:06] LABS: ALB/GLOB Ratio 1.2 RATIO (0.9-2.4); AST(SGOT) 19 U/L (15-37); Alanine Aminotransfer ALT/SGPT 26 U/L (16-61); Alkaline Phosphatase 73 U/L (45-117); Anion Gap 5 (5-15); BUN 25 mg/dL (7-18); BUN/Creat Ratio 15.8 RATIO (10-20); Chloride 104 mmol/L (98-107); Creatinine, Serum 1.58 mg/dL (0.70-1.30); EST Glomerular Filtration Rate 45 mL/min (>60); Est Glom Filt Rate - Afr Amer 55 mL/min (>60); Ferritin 482 ng/mL (26-388); Globulin 3.4 g/dL (2.2-4.2); Glucose 300 mg/dL (74-106); Iron 86 ug/dL (65-175); Iron Binding Capacity,Total 302 ug/dL (250-450); Potassium 4.8 mmol/L (3.5-5.1); Protein, Total 7.4 g/dL (6.4-8.2); Sodium Level 135 mmol/L (136-145); Thyroid Stim Hormone (TSH) 0.53 uIU/mL (0.358-3.74)
[2019-10-19 17:07] LABS: D-Dimer Quantitative (DVT/PE) 0.34 FEU/ug/m (0.27-0.49)
[2019-10-19 17:38] LABS: BNP,B-Type NATRIURETIC PEPTIDE 78.8 pg/mL (0-100)
[2019-10-21 12:32] LABS: Myoglobin, Serum 81 ng/mL (28-72)
== END ==
PROVIDERS: PCP Family Medicine Geriatric Medicine; Visit Provider Family Medicine Geriatric Medicine
DX: D50.9 Iron deficiency anemia, unspecified (principal); R06.02 Shortness of breath; R53.83 Other fatigue
CPT/HCPCS: 36415; 80053; 82728; 83540; 83550; 83874; 83880; 84443; 84484; 85025; 85379

== ENCOUNTER → 2019-10-25 11:10 | Outpatient (CLI) | payer MEDICARE, SELFPAY ==
[2019-04-06 13:15] VITALS: BMI 30.9
[2019-10-25 13:15] LABS: ALB/GLOB Ratio 1.1 RATIO (0.9-2.4); AST(SGOT) 16 U/L (15-37); Alanine Aminotransfer ALT/SGPT 26 U/L (16-61); Albumin, Serum 3.6 g/dL (3.2-5.0); Alkaline Phosphatase 101 U/L (45-117); Anion Gap 7 (5-15); BUN 24 mg/dL (7-18); BUN/Creat Ratio 17.3 RATIO (10-20); Calcium,Total 8.6 mg/dL (8.5-10.1); Chloride 105 mmol/L (98-107); Creatinine, Serum 1.39 mg/dL (0.70-1.30); EST Glomerular Filtration Rate 53 mL/min (>60); Est Glom Filt Rate - Afr Amer 64 mL/min (>60); Globulin 3.4 g/dL (2.2-4.2); Glucose 315 mg/dL (74-106); Potassium 4.6 mmol/L (3.5-5.1); Sodium Level 137 mmol/L (136-145)
== END ==
PROVIDERS: PCP Family Medicine Geriatric Medicine; Referring Provider Internal Medicine Rheumatology; Visit Provider Internal Medicine Rheumatology
DX: M06.4 Inflammatory polyarthropathy (principal); K21.9 Gastro-esophageal reflux disease without esophagitis; I10 Essential (primary) hypertension; E11.9 Type 2 diabetes mellitus without complications; E78.5 Hyperlipidemia, unspecified; N40.1 Benign prostatic hyperplasia with lower urinary tract symptoms; Z79.899 Other long term (current) drug therapy
CPT/HCPCS: 36415; 80053

== ENCOUNTER → 2019-11-11 11:57 | Outpatient (CLI) | payer MEDICARE, SELFPAY ==
[2019-04-06 13:15] VITALS: BMI 30.9
--- NOTE | 2019-11-11 12:01 | RAD_ITS ---
STUDY: X-RAY - LEFT KNEE REASON FOR EXAM: Male, 79 years old. Left knee and hip pain. nki TECHNIQUE: 4 view(s) of the knee. COMPARISON: February 10, 2017 FINDINGS: Normal visualized distal femur. Normal visualized proximal tibia and fibula. Normal proximal tibiofibular articulation. Normal medial femorotibial compartment. Normal lateral femorotibial compartment. Normal patellofemoral articulation. Patella spurring along the superior edge. The soft tissue structures are unremarkable. RAD/Knee 4 or More Views IMPRESSION: Mild degenerative changes of the knee. Electronically Signed: Will Cuenca DO at 13:08 EDT Tel [phone], Service support ,
--- NOTE | 2019-11-11 12:15 | RAD_ITS ---
STUDY: X-RAY - PELVIS AND LEFT HIP REASON FOR EXAM: Male, 79 years old. Left knee and hip pain. nki TECHNIQUE: 4 views of the pelvis and hip. COMPARISON: None. FINDINGS: There is a non-specific bowel gas pattern. Normal visualized soft tissue structures. Normal bilateral iliac wings, sacroiliac joints and visualized sacrum. Normal bilateral superior and inferior pubic rami. Normal pubic symphysis. Normal bilateral ischial tuberosities. Normal visualized femoral head. Normal acetabulum. Narrowing of the hip joint. RAD/HIP, UNI W/ Pelvis 2-3 Views IMPRESSION: Mild degenerative changes of the hip. Electronically Signed: Will Cuenca DO at 13:03 EDT Tel [phone], Service support ,
== END ==
PROVIDERS: PCP Family Medicine Geriatric Medicine; Referring Provider Family Medicine Geriatric Medicine; Visit Provider Family Medicine Geriatric Medicine
DX: M17.12 Unilateral primary osteoarthritis, left knee (principal); M16.12 Unilateral primary osteoarthritis, left hip
CPT/HCPCS: 73502; 73564

== ENCOUNTER → 2019-11-28 10:40 | Outpatient (CLI) | payer MEDICARE, SELFPAY ==
[2017-05-24 11:01] VITALS: BMI 33.5
[2019-04-06 13:15] VITALS: BMI 30.9
[2019-11-28 12:53] LABS: Vitamin D,25 Hydroxy 34.3 ng/mL
[2019-11-28 12:59] LABS: BUN 26 mg/dL (7-18); Creatinine, Serum 1.52 mg/dL (0.70-1.30); Glucose 282 mg/dL (74-106)
[2019-11-28 13:00] LABS: Albumin, Serum 3.6 g/dL (3.2-5.0); BUN/Creat Ratio 17.1 RATIO (10-20); Calcium,Total 8.9 mg/dL (8.5-10.1); Chloride 104 mmol/L (98-107); EST Glomerular Filtration Rate 47 mL/min (>60); Est Glom Filt Rate - Afr Amer 57 mL/min (>60); Phosphorus 3.2 mg/dL (2.5-4.9); Potassium 4.3 mmol/L (3.5-5.1); Sodium Level 136 mmol/L (136-145)
== END ==
PROVIDERS: Family Provider Family Medicine Geriatric Medicine; PCP Family Medicine Geriatric Medicine; Referring Provider Internal Medicine Nephrology; Visit Provider Internal Medicine Nephrology
DX: N18.3 Chronic kidney disease, stage 3 (moderate) (principal); E55.9 Vitamin D deficiency, unspecified
CPT/HCPCS: 36415; 80069; 82306; 83970

== ENCOUNTER → 2019-12-13 11:18 | Outpatient (CLI) | payer MEDICARE, SELFPAY ==
[2019-12-01 13:07] VITALS: BMI 32.5
[2019-12-13 12:54] LABS: ALB/GLOB Ratio 1.1 RATIO (0.9-2.4); AST(SGOT) 17 U/L (15-37); Alanine Aminotransfer ALT/SGPT 22 U/L (16-61); Albumin, Serum 3.9 g/dL (3.2-5.0); Alkaline Phosphatase 104 U/L (45-117); Anion Gap 4 (5-15); BUN 28 mg/dL (7-18); BUN/Creat Ratio 19.3 RATIO (10-20); Calcium,Total 8.9 mg/dL (8.5-10.1); Chloride 107 mmol/L (98-107); Creatinine, Serum 1.45 mg/dL (0.70-1.30); EST Glomerular Filtration Rate 50 mL/min (>60); Est Glom Filt Rate - Afr Amer 60 mL/min (>60); Globulin 3.6 g/dL (2.2-4.2); Glucose 195 mg/dL (74-106); Potassium 4.3 mmol/L (3.5-5.1); Protein, Total 7.5 g/dL (6.4-8.2); Sodium Level 137 mmol/L (136-145)
== END ==
PROVIDERS: PCP Family Medicine Geriatric Medicine; Referring Provider Internal Medicine Rheumatology; Visit Provider Internal Medicine Rheumatology
DX: M06.4 Inflammatory polyarthropathy (principal); K21.9 Gastro-esophageal reflux disease without esophagitis; I10 Essential (primary) hypertension; E11.9 Type 2 diabetes mellitus without complications; E78.5 Hyperlipidemia, unspecified; N40.1 Benign prostatic hyperplasia with lower urinary tract symptoms; Z79.899 Other long term (current) drug therapy
CPT/HCPCS: 36415; 80053

== ENCOUNTER → 2019-12-20 08:14 | Outpatient (CLI) | payer MEDICARE, SELFPAY ==
[2019-12-01 13:07] VITALS: BMI 32.5
[2019-12-20 10:46] LABS: Albumin, Serum 3.9 g/dL (3.2-5.0); BUN 32 mg/dL (7-18); BUN/Creat Ratio 21.5 RATIO (10-20); Chloride 108 mmol/L (98-107); Creatinine, Serum 1.49 mg/dL (0.70-1.30); EST Glomerular Filtration Rate 48 mL/min (>60); Est Glom Filt Rate - Afr Amer 59 mL/min (>60); Glucose 172 mg/dL (74-106); Phosphorus 3.5 mg/dL (2.5-4.9); Potassium 3.8 mmol/L (3.5-5.1); Sodium Level 138 mmol/L (136-145)
== END ==
PROVIDERS: PCP Family Medicine Geriatric Medicine; Referring Provider Internal Medicine Nephrology; Visit Provider Internal Medicine Nephrology
DX: E11.22 Type 2 diabetes mellitus with diabetic chronic kidney disease (principal); N18.3 Chronic kidney disease, stage 3 (moderate)
CPT/HCPCS: 36415; 80069

== ENCOUNTER → 2019-12-27 11:29 | Outpatient (CLI) | payer MEDICARE, SELFPAY ==
[2019-12-01 13:07] VITALS: BMI 32.5
--- NOTE | 2019-12-27 11:32 | RAD_ITS ---
STUDY: X-RAY - LUMBAR SPINE REASON FOR EXAM: Male, 79 years old. SCIATICA. NUMBNESS IN LEGS TECHNIQUE: 5 view(s) of the lumbar spine were obtained. COMPARISON: None FINDINGS: Normal lumbar lordosis. There is no substantial scoliosis. There is a normal alignment of the vertebrae. There are dense bridging osteophytes throughout the lumbar spine consistent with dish. There is multi-level degenerative disc disease with multi-level disc space narrowing. The soft tissue structures are unremarkable. RAD/L/S Spine Min 4 Views IMPRESSION: Multilevel disc space narrowing. Large dense bridging osteophytes throughout the lumbar spine consistent with diffuse hepatic skeletal hyperostosis. There is no evidence of fracture, spondylolysis, or spondylolisthesis. Electronically Signed: Pancho Joseph MD at 20:51 EDT , Service support ,
[2019-12-27 12:35] LABS: Absolute Lymphocyte Count 2.02 X10^3/uL (0.83-4.51); Absolute Neutrophil Count 5.5 X10^3/uL (2.0-7.7); Basophil# 0.09 X10^3/uL; Eosinophil# 0.14 X10^3/uL; Eosinophils% 1.6 % (0-5); Hematocrit 33.2 % (40-54); Hemoglobin 10.9 g/dL (13.0-16.5); Lymphocyte # 2.02 X10^3/ul (4.0); Lymphocyte % 22.5 % (19-41); Mean Corp Hgb Conc 32.8 g/dL (32-36); Mean Corpuscular Hgb 31.5 pg (27.0-32.0); Mean Platelet Vol. 11.1 fl (6.2-12.0); Monocyte# 1.08 X10^3/uL; NRBC Flagged by Analyzer 0 % (0-5); Neutrophil # 5.54 X10^3/uL (2.7-7.7); Neutrophil % 61.7 % (47-70); Platelet Count 243 K/mm3 (150-450); RBC Distribution Width CV 14.3 % (11.6-14.6); RBC Distribution Width SD 49.9 fl (35.1-43.9); Red Blood Count 3.46 M/mm3 (4.6-6.2)
[2019-12-27 13:29] LABS: ALB/GLOB Ratio 1.2 RATIO (0.9-2.4); AST(SGOT) 20 U/L (15-37); Alanine Aminotransfer ALT/SGPT 21 U/L (16-61); Albumin, Serum 3.9 g/dL (3.2-5.0); Alkaline Phosphatase 92 U/L (45-117); Anion Gap 8 (5-15); BUN 29 mg/dL (7-18); BUN/Creat Ratio 19.1 RATIO (10-20); Calcium,Total 9.3 mg/dL (8.5-10.1); Chloride 105 mmol/L (98-107); Creatinine, Serum 1.52 mg/dL (0.70-1.30); EST Glomerular Filtration Rate 47 mL/min (>60); Est Glom Filt Rate - Afr Amer 57 mL/min (>60); Globulin 3.3 g/dL (2.2-4.2); Glucose 187 mg/dL (74-106); Potassium 4.7 mmol/L (3.5-5.1); Protein, Total 7.2 g/dL (6.4-8.2); Sodium Level 137 mmol/L (136-145); Thyroid Stim Hormone (TSH) 1.01 uIU/mL (0.358-3.74); Uric Acid 5.6 mg/dL (3.5-7.2)
== END ==
PROVIDERS: PCP Family Medicine Geriatric Medicine; Referring Provider Family Medicine Geriatric Medicine; Visit Provider Family Medicine Geriatric Medicine
DX: M54.30 Sciatica, unspecified side (principal); E11.9 Type 2 diabetes mellitus without complications; E55.9 Vitamin D deficiency, unspecified; E23.6 Other disorders of pituitary gland; I10 Essential (primary) hypertension; M10.9 Gout, unspecified
CPT/HCPCS: 36415; 72110; 80053; 82306; 84403; 84443; 84550; 85025

== ENCOUNTER 2020-01-27 07:30 | Outpatient (RCR) | payer MEDICARE, SELFPAY ==
[2019-12-01 13:07] VITALS: BMI 32.5
--- NOTE | 2019-12-22 14:30 | HP.PTEVAL_ITS ---
Patient's Visit Information CELIA BARNARD is a 79 year old M referred to Physical Therapy by Dr. Suellen Peralta MD with a diagnosis of LLE RADICULOPATHY. Date of Evaluation: 12/22/19 Physical Therapist: Terence Ramirez, PT, Cert MDT, OCS - Visit Plan Frequency: 2x /Week Duration: 6 Weeks Plan: PT INTERVENTIONS HIP ROM/STRENGTHNING,FLEXABLITY,DLS,POSTURAL EX'S,MODALTIES - Subjective This 79 y/o male presents to physical therapy with LLE radicular symptoms in left leg. Patient intially seen family DR Craig tried predisone didn't help and injections in hip. Patient had x-rays knee and hip.Then see Dr Peralta recommeded PT and tramadol. Aggraveting f painactors walking,standing ,bending ,lifting . Alleviating factors sitting and resting. patient denies parathesia/tinging. Bowel/bladder -. Coughing/sneezing -. Today ,patient only romero s leg pain. Patient pain affects sleeping. Patient has no h/o tauma. Patient symptoms affects ability to perform housework tasks and ADL'S. Symptoms affects QOL. SOCIAL: marrried. VOCATION: retired - Pain Left Hip Pain Intensity (Out of 10): 5 Pain Intensity Range: 10 - Objective POSTURE: foward posture trunk flexed. NEURO: intact. PALAPTION: tender SI. SMMYTIES: assymmtical pelvis. GAIT: antalgic gait decrease stance time LLE foward posture. PROM: shoulder hip flexion 90 degrees,hip IR 0 degrees,ER 20 degrees pain,. LUMBAR ROM: flexion mod loss decrease curve reversla,extenion severe loss. FLEXABLITY: hams min loss,piriformis mod tight. MMT: quads/hams 4-/5,hip flexion right 4-/5,left 3+/5 ,hip abd 3+/5,ankle 4/5 - 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s L/S Slump test left side: Negative L/S Slump test right side: Negative L/S Left Straight Leg Raise: Negative L/S Right Straight Leg Raise: Negative L Hip Scour: Positive L Hip Trendelenberg - Glut Medius: Positive - Goals Goal 1:: Patient to be I with HEP Goal Time Frame: 4-6 Weeks Goal 2:: Patient improve quality of gait with less anatalic 50% of the time. Goal Time Frame: 4-6 Weeks Goal 3:: Patient to improve ROM of hip flexion and rotation by 10 degrees or > to improve function Goal Time Frame: 4-6 Weeks Goal 4:: Patient decrease left hip pain bt 40% or > to improve gait and function Goal Time Frame: 4-6 Weeks Goal 5:: Patient to improve lumbar ROM for function of recovery Goal Time Frame: 4-6 Weeks Goal 6:: Patient improve LEFS score by 5-10 points to improve gait. Goal Time Frame: 4-6 Weeks - Rehabilitation Potential Physical Therapy Diagnosis: This patient has left groin to thigh pain appears to have significant OA with poor ROM hip with pain,weakness hip ,poor lumbar ROM , impairs walking and standing causes deficits with ADL'S. Rehabilitation Potential: Good - Anticipated Interventions Patient/Client Instruction: Educate patient on: Condition, Plan of Care For the Purpose of:: To decrease pain, To increase ROM, To improve muscle performance and motor function, To improve ability to perform ADL's, To increase tolerance to activity/condition/position, To improve ability of physical actions for home/community/work/leisure, To improve gait and locomotor functions, To improve health of tissue, To decrease soft tissue restriction, To increase flexibility/ROM, To improve safety with gait, To reduce risk of recurrence, To improve ability to perform tasks related to life management Therapeutic Exercise to Include: Strength training, Endurance training, Postural training, Flexibilty training, Passive ROM, Active ROM, Dynamic Lumbar Stabilization Comment: HIP/KNEE TENS: Yes IF ES: Yes Cryotherapy (ice pack, ice massage): Yes Thermo therapy (hot pack): Yes Ultrasound (thermal/non thermal): Yes For the Purpose of:: To decrease pain, To increase ROM, To improve nutrient delivery to tissue, To increase oxygenation perfusion, To improve health of tissue, To decrease soft tissue restriction Thank you for the opportunity to evaluate your patient. For Medicare and Medicare HMO plans, please review the plan of care and approve it. It will need to be FAXED BACK to us at [phone] for Medicare purposes. For Medicare only, by signing this I certify the plan of care. Please let me know if there are questions or concerns regarding this plan of care. Physician Signature: Date:
--- NOTE | 2020-05-09 13:21 | HP.PT.NRP ---
CELIA BARNARD was seen in my office for initial evaluation on 12/22/19. The following Plan of Care was established for this patient: Initial Frequency: 2x /Week Initial Duration: 6 Weeks Patient/Client Instruction: Educate patient on: Condition, Plan of Care For the Purpose of:: To decrease pain, To increase ROM, To improve muscle performance and motor function, To improve ability to perform ADL's, To increase tolerance to activity/condition/position, To improve ability of physical actions for home/community/work/leisure, To improve gait and locomotor functions, To improve health of tissue, To decrease soft tissue restriction, To increase flexibility/ROM, To improve safety with gait, To reduce risk of recurrence, To improve ability to perform tasks related to life management Therapeutic Exercise to Include: Strength training, Endurance training, Postural training, Flexibilty training, Passive ROM, Active ROM, Dynamic Lumbar Stabilization TENS: Yes IF ES: Yes Cryotherapy (ice pack, ice massage): Yes Thermo therapy (hot pack): Yes Ultrasound (thermal/non thermal): Yes For the Purpose of:: To decrease pain, To increase ROM, To improve nutrient delivery to tissue, To increase oxygenation perfusion, To improve health of tissue, To decrease soft tissue restriction This patient was last seen in our office . Pertinent comments regarding their Physical therapy will appear below: This patient seen for PT for LLE radiculopathy with tx focusing on DLS ,postural ex's and strengthening. At this point I will be discontinuing this patient from physical therapy. I would be happy to see this patient again in the future if found appropriate by the physician. Thank you! Terence Ramirez, PT, Cert MDT, OCS
== END 2020-01-27 19:00 | disposition home or self-care (01) ==
LOC: PT 07:30
PROVIDERS: PCP Family Medicine Geriatric Medicine; Referring Provider Internal Medicine Rheumatology; Visit Provider Internal Medicine Rheumatology
DX: M06.4 Inflammatory polyarthropathy (principal); Z79.899 Other long term (current) drug therapy; K21.9 Gastro-esophageal reflux disease without esophagitis; I10 Essential (primary) hypertension; E11.9 Type 2 diabetes mellitus without complications; E78.5 Hyperlipidemia, unspecified; N40.1 Benign prostatic hyperplasia with lower urinary tract symptoms
CPT/HCPCS: 97110; 97162

== ENCOUNTER → 2020-01-31 11:02 | Outpatient (CLI) | payer MEDICARE, SELFPAY ==
[2019-12-01 13:07] VITALS: BMI 32.5
[2020-01-31 10:24] VITALS: BMI 31.1
[2020-01-31 12:25] LABS: Absolute Lymphocyte Count 1.46 X10^3/uL (0.83-4.51); Absolute Neutrophil Count 6.2 X10^3/uL (2.0-7.7); Basophil# 0.09 X10^3/uL; Eosinophil# 0.17 X10^3/uL; Eosinophils% 1.9 % (0-5); Lymphocyte # 1.46 X10^3/ul (4.0); Mean Corp Hgb Conc 32.4 g/dL (32-36); Mean Corpuscular Hgb 31.4 pg (27.0-32.0); Mean Corpuscular Volume 97.1 fL (80-94); Mean Platelet Vol. 11.4 fl (6.2-12.0); Monocyte# 1.13 X10^3/uL; Monocyte% 12.4 % (0-10); NRBC Flagged by Analyzer 0 % (0-5); Neutrophil # 6.17 X10^3/uL (2.7-7.7); Neutrophil % 67.7 % (47-70); Platelet Count 240 K/mm3 (150-450); RBC Distribution Width CV 14.4 % (11.6-14.6); RBC Distribution Width SD 50.1 fl (35.1-43.9); White Blood Count 9.1 K/mm3 (4.4-11.0)
[2020-01-31 13:18] LABS: AST(SGOT) 17 U/L (15-37); Alanine Aminotransfer ALT/SGPT 22 U/L (16-61); Albumin, Serum 3.8 g/dL (3.2-5.0); Alkaline Phosphatase 93 U/L (45-117); Anion Gap 7 (5-15); BUN 28 mg/dL (7-18); Calcium,Total 9.2 mg/dL (8.5-10.1); Chloride 104 mmol/L (98-107); EST Glomerular Filtration Rate 52 mL/min (>60); Est Glom Filt Rate - Afr Amer 63 mL/min (>60); Globulin 3.8 g/dL (2.2-4.2); Glucose 233 mg/dL (74-106); Phosphorus 2.8 mg/dL (2.5-4.9); Protein, Total 7.6 g/dL (6.4-8.2); Sodium Level 136 mmol/L (136-145)
[2020-01-31 16:02] LABS: Protein, Urine (Random) 50.3 mg/dL (<11.9); Protein:Creat Ratio 294 mg/g CRE (0-200)
== END ==
PROVIDERS: PCP Family Medicine Geriatric Medicine; Referring Provider Internal Medicine Nephrology; Visit Provider Internal Medicine Nephrology
DX: M06.4 Inflammatory polyarthropathy (principal); Z79.899 Other long term (current) drug therapy; K21.9 Gastro-esophageal reflux disease without esophagitis; E78.5 Hyperlipidemia, unspecified; N40.1 Benign prostatic hyperplasia with lower urinary tract symptoms; I12.9 Hypertensive chronic kidney disease with stage 1 through stage 4 chronic kidney disease, or unspecified chronic kidney disease; N18.3 Chronic kidney disease, stage 3 (moderate); E11.22 Type 2 diabetes mellitus with diabetic chronic kidney disease
CPT/HCPCS: 36415; 80053; 82570; 84100; 84156; 85025

== ENCOUNTER → 2020-02-28 11:05 | Outpatient (CLI) | payer MEDICARE, SELFPAY ==
[2020-01-31 10:24] VITALS: BMI 31.1
[2020-02-28 12:24] LABS: Absolute Lymphocyte Count 2.62 X10^3/uL (0.83-4.51); Absolute Neutrophil Count 5.8 X10^3/uL (2.0-7.7); Basophil# 0.09 X10^3/uL; Basophil% 0.9 % (0-1); Eosinophil# 0.29 X10^3/uL; Eosinophils% 2.8 % (0-5); Hematocrit 33.8 % (40-54); Hemoglobin 11.2 g/dL (13.0-16.5); Lymphocyte # 2.62 X10^3/ul (4.0); Lymphocyte % 25.7 % (19-41); Mean Corp Hgb Conc 33.1 g/dL (32-36); Mean Corpuscular Hgb 32.1 pg (27.0-32.0); Mean Corpuscular Volume 96.8 fL (80-94); Mean Platelet Vol. 11.2 fl (6.2-12.0); Monocyte# 1.17 X10^3/uL; Monocyte% 11.5 % (0-10); NRBC Flagged by Analyzer 0 % (0-5); Neutrophil # 5.82 X10^3/uL (2.7-7.7); Neutrophil % 57.2 % (47-70); Platelet Count 227 K/mm3 (150-450); RBC Distribution Width CV 14.7 % (11.6-14.6); RBC Distribution Width SD 50.9 fl (35.1-43.9); Red Blood Count 3.49 M/mm3 (4.6-6.2); White Blood Count 10.2 K/mm3 (4.4-11.0)
[2020-02-28 12:56] LABS: ALB/GLOB Ratio 0.9 RATIO (0.9-2.4); AST(SGOT) 18 U/L (15-37); Alanine Aminotransfer ALT/SGPT 24 U/L (16-61); Albumin, Serum 3.7 g/dL (3.2-5.0); Alkaline Phosphatase 103 U/L (45-117); Anion Gap 7 (5-15); BUN 24 mg/dL (7-18); BUN/Creat Ratio 17.8 RATIO (10-20); Calcium,Total 9.1 mg/dL (8.5-10.1); Chloride 106 mmol/L (98-107); Creatinine, Serum 1.35 mg/dL (0.70-1.30); EST Glomerular Filtration Rate 54 mL/min (>60); Est Glom Filt Rate - Afr Amer 66 mL/min (>60); Globulin 3.9 g/dL (2.2-4.2); Glucose 156 mg/dL (74-106); Potassium 3.6 mmol/L (3.5-5.1); Protein, Total 7.6 g/dL (6.4-8.2); Sodium Level 138 mmol/L (136-145)
== END ==
PROVIDERS: PCP Family Medicine Geriatric Medicine; Referring Provider Internal Medicine Rheumatology; Visit Provider Internal Medicine Rheumatology
DX: M06.4 Inflammatory polyarthropathy (principal); K21.9 Gastro-esophageal reflux disease without esophagitis; I10 Essential (primary) hypertension; E11.9 Type 2 diabetes mellitus without complications; E78.5 Hyperlipidemia, unspecified; N40.1 Benign prostatic hyperplasia with lower urinary tract symptoms; Z79.899 Other long term (current) drug therapy
CPT/HCPCS: 36415; 80053; 85025

== ENCOUNTER → 2020-03-08 06:24 | Outpatient (CLI) | payer MEDICARE, SELFPAY ==
[2020-01-31 10:24] VITALS: BMI 31.1
--- NOTE | 2020-03-08 06:37 | MRI_ITS ---
STUDY: MRI LUMBAR SPINE WITHOUT CONTRAST REASON FOR EXAM: Male, 79 years old. radiculopathy, lumbar spinal stenosis, left hip/leg pain TECHNIQUE: Standardized fat and water weighted pulse sequences were obtained in the sagittal and axial planes. COMPARISON: Lumbar spine radiographs 12/27/2019. FINDINGS: T11-T12: (Sagittal only). Bridging anterior marginal spurs. Normal endplates. Normal disc height and morphology. Normal central canal and bilateral intervertebral neural foramina. T12-L1: (Sagittal only). Prominent anterior marginal spurs and smaller right lateral marginal spurs. Normal endplates. Normal disc height and morphology. Normal central canal and bilateral intervertebral neural foramina. Normal lumbar lordosis. There is no substantial scoliosis. Normal conus medullaris that terminates at the mid T12 vertebral body level. L1-2: Tiny Schmorl''s nodes in the vertebral endplates. Normal disc height. Minimal degenerative retrolisthesis of L1 on L2. Normal central canal and bilateral lateral recesses. Mild asymmetric degenerative facet arthropathy. Normal bilateral intervertebral neural foramina. L2-3: Normal endplates. Normal disc height. Small posterior annular bulging disc causing flattening central canal stenosis. Prominent left posterior ligamentum flavum hypertrophy causing asymmetric flattening central canal stenosis. The AP canal diameter is 5.5 mm and increases towards the left lateral recess. Normal right lateral recesses. Mild bilateral degenerative facet arthropathy. Normal bilateral intervertebral neural foramina. L3-4: Normal endplates. Normal disc height and morphology. Moderately pronounced asymmetric flattening central canal stenosis due to prominent left posterior ligamentum flavum hypertrophy. The AP canal diameter is 5.2 mm in the left half of the central canal. Moderate left degenerative facet arthropathy. Mild right degenerative facet arthropathy. Normal right lateral recess. Normal bilateral intervertebral neural foramina. L4-5: MODIC type II degenerative vertebral marrow fatty changes underneath the vertebral endplates, greater on the right side. Moderate disc space height narrowing. Small posterior annular bulging disc. Moderately pronounced flattening central canal stenosis with an AP canal diameter of 5.5 mm. Posterior ligamentum flavum hypertrophy. Mild to moderate right degenerative facet arthropathy. Mild left degenerative facet arthropathy. Moderate stenosis of the right intervertebral neural foramen with suspicious osteophytic impingement on the right L4 nerve (series 2, image 10). Mild stenosis of the left intervertebral neural foramen. L5-S1: MODIC type II degenerative vertebral marrow fatty change underneath the vertebral endplates. Pronounced disc space height narrowing. Normal central canal and bilateral lateral recesses. Mild asymmetric degenerative facet arthropathy. Mild stenosis of the left intervertebral neural foramen. Normal right intervertebral neural foramen. Normal visualized sacral ala. Normal visualized paraspinous soft tissue structures. MRI/Spine Lumbar (Routine) IMPRESSION: 1. Moderately pronounced central canal stenosis at L4-L5 disc space level, small posterior annular bulging disc, posterior ligamentum flavum hypertrophy and moderate stenosis of the right intervertebral neural foramen with suspicious osteophytic image pain segment of the right L4 nerve. 2. Moderately pronounced asymmetric flattening central canal stenosis at L3-L4 disc space level due to left posterior ligamentum flavum hypertrophy. The left half of the central canal is 5.2 mm in diameter. 3. Moderately pronounced asymmetric central canal stenosis at L2-L3 disc space level due to prominent left posterior ligamentum flavum hypertrophy and small posterior annular bulging disc. The AP canal diameter is 5.5 mm in the left half of the central canal. 4. Minimal degenerative retrolisthesis of L1 on L2 and mild asymmetric L1-L2 degenerative facet arthropathy. 5. Pronounced L5-S1 degenerative disc space height narrowing, mild asymmetric degenerative facet arthropathy and mild stenosis of the left intervertebral neural foramen. 6. No MRI evidence of lumbar extruded disc fragment. Electronically Signed: Sergio Bartlett MD at 10:25 EST , Service support ,
== END ==
PROVIDERS: PCP Family Medicine Geriatric Medicine; Referring Provider Nurse Practitioner Family; Visit Provider Nurse Practitioner Family
DX: M51.37 Other intervertebral disc degeneration, lumbosacral region (principal); M47.817 Spondylosis without myelopathy or radiculopathy, lumbosacral region; M46.96 Unspecified inflammatory spondylopathy, lumbar region; M48.07 Spinal stenosis, lumbosacral region
CPT/HCPCS: 72148

== ENCOUNTER → 2020-04-04 09:18 | Outpatient (CLI) | payer MEDICARE, SELFPAY ==
[2020-01-31 10:24] VITALS: BMI 31.1
[2020-04-04 12:40] LABS: Absolute Lymphocyte Count 1.99 X10^3/uL (0.83-4.51); Basophil# 0.09 X10^3/uL; Basophil% 1.1 % (0-1); Eosinophil# 0.22 X10^3/uL; Eosinophils% 2.6 % (0-5); Hematocrit 34.1 % (40-54); Hemoglobin 11.3 g/dL (13.0-16.5); Lymphocyte # 1.99 X10^3/ul (4.0); Lymphocyte % 23.3 % (19-41); Mean Corp Hgb Conc 33.1 g/dL (32-36); Mean Corpuscular Hgb 31.8 pg (27.0-32.0); Mean Corpuscular Volume 96.1 fL (80-94); Mean Platelet Vol. 11.5 fl (6.2-12.0); NRBC Flagged by Analyzer 0 % (0-5); Neutrophil # 4.99 X10^3/uL (2.7-7.7); Neutrophil % 58.3 % (47-70); Platelet Count 229 K/mm3 (150-450); RBC Distribution Width CV 14.8 % (11.6-14.6); RBC Distribution Width SD 51.1 fl (35.1-43.9); Red Blood Count 3.55 M/mm3 (4.6-6.2); White Blood Count 8.6 K/mm3 (4.4-11.0)
[2020-04-04 12:59] LABS: Vitamin D,25 Hydroxy 20.8 ng/mL
[2020-04-04 13:27] LABS: ALB/GLOB Ratio 1.1 RATIO (0.9-2.4); AST(SGOT) 23 U/L (15-37); Alanine Aminotransfer ALT/SGPT 29 U/L (16-61); Alkaline Phosphatase 91 U/L (45-117); Anion Gap 6 (5-15); BUN 24 mg/dL (7-18); BUN/Creat Ratio 14.7 RATIO (10-20); Calcium,Total 9.4 mg/dL (8.5-10.1); Chloride 103 mmol/L (98-107); Creatinine, Serum 1.63 mg/dL (0.70-1.30); EST Glomerular Filtration Rate 44 mL/min (>60); Est Glom Filt Rate - Afr Amer 53 mL/min (>60); Globulin 3.8 g/dL (2.2-4.2); Glucose 174 mg/dL (74-106); Potassium 4.4 mmol/L (3.5-5.1); Protein, Total 7.8 g/dL (6.4-8.2); Sodium Level 136 mmol/L (136-145); Thyroid Stim Hormone (TSH) 1.18 uIU/mL (0.358-3.74)
== END ==
PROVIDERS: PCP Family Medicine Geriatric Medicine; Visit Provider Family Medicine Geriatric Medicine
DX: E11.9 Type 2 diabetes mellitus without complications (principal); E23.6 Other disorders of pituitary gland; E55.9 Vitamin D deficiency, unspecified; I10 Essential (primary) hypertension
CPT/HCPCS: 36415; 80053; 82306; 84403; 84443; 85025

== ENCOUNTER → 2020-04-30 12:59 | Outpatient (CLI) | payer MEDICARE, SELFPAY ==
[2020-01-31 10:24] VITALS: BMI 31.1
[2020-04-30 15:22] LABS: Absolute Lymphocyte Count 1.92 X10^3/uL (0.83-4.51); Absolute Neutrophil Count 5.3 X10^3/uL (2.0-7.7); Basophil# 0.13 X10^3/uL; Basophil% 1.5 % (0-1); Eosinophil# 0.21 X10^3/uL; Eosinophils% 2.4 % (0-5); Hemoglobin 11.1 g/dL (13.0-16.5); Lymphocyte # 1.92 X10^3/ul (4.0); Lymphocyte % 22.2 % (19-41); Mean Corp Hgb Conc 32.6 g/dL (32-36); Mean Corpuscular Hgb 30.9 pg (27.0-32.0); Mean Corpuscular Volume 94.7 fL (80-94); Mean Platelet Vol. 11.5 fl (6.2-12.0); Monocyte# 0.99 X10^3/uL; Monocyte% 11.4 % (0-10); NRBC Flagged by Analyzer 0 % (0-5); Neutrophil # 5.31 X10^3/uL (2.7-7.7); Neutrophil % 61.3 % (47-70); Platelet Count 226 K/mm3 (150-450); RBC Distribution Width CV 14.7 % (11.6-14.6); RBC Distribution Width SD 50.3 fl (35.1-43.9); Red Blood Count 3.59 M/mm3 (4.6-6.2); White Blood Count 8.7 K/mm3 (4.4-11.0)
[2020-04-30 16:16] LABS: ALB/GLOB Ratio 1.1 RATIO (0.9-2.4); AST(SGOT) 21 U/L (15-37); Alanine Aminotransfer ALT/SGPT 22 U/L (16-61); Alkaline Phosphatase 88 U/L (45-117); Anion Gap 7 (5-15); BUN 25 mg/dL (7-18); BUN/Creat Ratio 15.5 RATIO (10-20); Calcium,Total 8.9 mg/dL (8.5-10.1); Chloride 103 mmol/L (98-107); Creatinine, Serum 1.61 mg/dL (0.70-1.30); EST Glomerular Filtration Rate 44 mL/min (>60); Est Glom Filt Rate - Afr Amer 54 mL/min (>60); Globulin 3.7 g/dL (2.2-4.2); Glucose 176 mg/dL (74-106); Potassium 4.2 mmol/L (3.5-5.1); Protein, Total 7.7 g/dL (6.4-8.2); Sodium Level 136 mmol/L (136-145)
== END ==
PROVIDERS: PCP Family Medicine Geriatric Medicine; Referring Provider Internal Medicine Rheumatology; Visit Provider Internal Medicine Rheumatology
DX: M06.4 Inflammatory polyarthropathy (principal); K21.9 Gastro-esophageal reflux disease without esophagitis; I10 Essential (primary) hypertension; E11.9 Type 2 diabetes mellitus without complications; E78.5 Hyperlipidemia, unspecified; N40.1 Benign prostatic hyperplasia with lower urinary tract symptoms; Z79.899 Other long term (current) drug therapy
CPT/HCPCS: 36415; 80053; 85025

== ENCOUNTER → 2020-06-04 12:59 | Outpatient (CLI) | payer MEDICARE, SELFPAY ==
[2020-01-31 10:24] VITALS: BMI 31.1
[2020-06-04 15:34] LABS: Protein, Urine (Random) 69.5 mg/dL (<11.9); Protein:Creat Ratio 271 mg/g CRE (0-200)
[2020-06-04 15:46] LABS: AST(SGOT) 17 U/L (15-37); Alanine Aminotransfer ALT/SGPT 21 U/L (16-61); Albumin, Serum 3.8 g/dL (3.2-5.0); Alkaline Phosphatase 94 U/L (45-117); Anion Gap 9 (5-15); BUN 32 mg/dL (7-18); BUN/Creat Ratio 21.6 RATIO (10-20); Calcium,Total 9.1 mg/dL (8.5-10.1); Chloride 101 mmol/L (98-107); Creatinine, Serum 1.48 mg/dL (0.70-1.30); EST Glomerular Filtration Rate 49 mL/min (>60); Est Glom Filt Rate - Afr Amer 59 mL/min (>60); Globulin 3.8 g/dL (2.2-4.2); Glucose 146 mg/dL (74-106); Potassium 4.3 mmol/L (3.5-5.1); Protein, Total 7.6 g/dL (6.4-8.2); Sodium Level 134 mmol/L (136-145)
== END ==
PROVIDERS: PCP Family Medicine Geriatric Medicine; Referring Provider Internal Medicine Nephrology; Visit Provider Internal Medicine Nephrology
DX: M06.4 Inflammatory polyarthropathy (principal); I12.9 Hypertensive chronic kidney disease with stage 1 through stage 4 chronic kidney disease, or unspecified chronic kidney disease; N18.30 Chronic kidney disease, stage 3 unspecified; E11.22 Type 2 diabetes mellitus with diabetic chronic kidney disease; K21.9 Gastro-esophageal reflux disease without esophagitis; E78.5 Hyperlipidemia, unspecified; N40.1 Benign prostatic hyperplasia with lower urinary tract symptoms; Z79.899 Other long term (current) drug therapy
CPT/HCPCS: 36415; 80053; 82570; 84100; 84156

== ENCOUNTER → 2020-06-26 10:47 | Outpatient (CLI) | payer MEDICARE, SELFPAY ==
[2020-01-31 10:24] VITALS: BMI 31.1
[2020-06-26 12:59] LABS: Absolute Lymphocyte Count 1.91 X10^3/uL (0.83-4.51); Absolute Neutrophil Count 4.5 X10^3/uL (2.0-7.7); Basophil# 0.07 X10^3/uL; Basophil% 0.9 % (0-1); Eosinophil# 0.16 X10^3/uL; Eosinophils% 2.1 % (0-5); Lymphocyte # 1.91 X10^3/ul (4.0); Lymphocyte % 25.1 % (19-41); Mean Corp Hgb Conc 32.4 g/dL (32-36); Mean Corpuscular Hgb 30.6 pg (27.0-32.0); Mean Corpuscular Volume 94.4 fL (80-94); Mean Platelet Vol. 11.6 fl (6.2-12.0); Monocyte# 0.88 X10^3/uL; Monocyte% 11.6 % (0-10); NRBC Flagged by Analyzer 0 % (0-5); Neutrophil # 4.52 X10^3/uL (2.7-7.7); Neutrophil % 59.5 % (47-70); Platelet Count 214 K/mm3 (150-450); RBC Distribution Width CV 14.2 % (11.6-14.6); RBC Distribution Width SD 49.3 fl (35.1-43.9); White Blood Count 7.6 K/mm3 (4.4-11.0)
[2020-06-26 13:14] LABS: Vitamin D,25 Hydroxy 21.6 ng/mL
[2020-06-26 13:30] LABS: ALB/GLOB Ratio 0.9 RATIO (0.9-2.4); AST(SGOT) 23 U/L (15-37); Alanine Aminotransfer ALT/SGPT 27 U/L (16-61); Albumin, Serum 3.7 g/dL (3.2-5.0); Alkaline Phosphatase 83 U/L (45-117); Anion Gap 8 (5-15); BUN 22 mg/dL (7-18); Calcium,Total 9.1 mg/dL (8.5-10.1); Chloride 104 mmol/L (98-107); Creatinine, Serum 1.47 mg/dL (0.70-1.30); EST Glomerular Filtration Rate 49 mL/min (>60); Est Glom Filt Rate - Afr Amer 59 mL/min (>60); Globulin 3.9 g/dL (2.2-4.2); Glucose 158 mg/dL (74-106); Potassium 4.2 mmol/L (3.5-5.1); Protein, Total 7.6 g/dL (6.4-8.2); Sodium Level 138 mmol/L (136-145)
== END ==
PROVIDERS: PCP Family Medicine Geriatric Medicine; Visit Provider Family Medicine Geriatric Medicine
DX: I10 Essential (primary) hypertension (principal); E11.9 Type 2 diabetes mellitus without complications; E23.6 Other disorders of pituitary gland; E55.9 Vitamin D deficiency, unspecified
CPT/HCPCS: 36415; 80053; 82306; 84403; 84443; 85025

== ENCOUNTER → 2020-07-13 11:22 | Outpatient (CLI) | payer MEDICARE, SELFPAY ==
[2020-07-10 12:58] VITALS: BMI 32.1
== END ==
PROVIDERS: PCP Family Medicine Geriatric Medicine; Visit Provider Family Medicine Geriatric Medicine
DX: N39.0 Urinary tract infection, site not specified (principal)
CPT/HCPCS: 87077; 87086; 87088; 87186

== ENCOUNTER → 2020-09-04 10:24 | Outpatient (CLI) | payer MEDICARE, SELFPAY ==
[2020-07-10 12:58] VITALS: BMI 32.1
[2020-09-04 12:22] LABS: Absolute Neutrophil Count 6.3 X10^3/uL (2.0-7.7); Basophil# 0.14 X10^3/uL; Basophil% 1.3 % (0-1); Eosinophil# 0.18 X10^3/uL; Eosinophils% 1.7 % (0-5); Hematocrit 34.5 % (40-54); Hemoglobin 11.3 g/dL (13.0-16.5); Lymphocyte % 23.1 % (19-41); Mean Corp Hgb Conc 32.8 g/dL (32-36); Mean Corpuscular Hgb 30.5 pg (27.0-32.0); Mean Platelet Vol. 11.8 fl (6.2-12.0); Monocyte# 1.12 X10^3/uL; Monocyte% 10.8 % (0-10); NRBC Flagged by Analyzer 0 % (0-5); Neutrophil # 6.32 X10^3/uL (2.7-7.7); Neutrophil % 60.8 % (47-70); Platelet Count 211 K/mm3 (150-450); RBC Distribution Width CV 14.3 % (11.6-14.6); RBC Distribution Width SD 47.9 fl (35.1-43.9); Red Blood Count 3.71 M/mm3 (4.6-6.2); White Blood Count 10.4 K/mm3 (4.4-11.0)
[2020-09-04 12:32] LABS: AST(SGOT) 13 U/L (15-37); Alanine Aminotransfer ALT/SGPT 22 U/L (16-61); Albumin, Serum 3.6 g/dL (3.2-5.0); Alkaline Phosphatase 91 U/L (45-117); Anion Gap 5 (5-15); BUN 26 mg/dL (7-18); BUN/Creat Ratio 19.4 RATIO (10-20); Calcium,Total 8.9 mg/dL (8.5-10.1); Chloride 104 mmol/L (98-107); Creatinine, Serum 1.34 mg/dL (0.70-1.30); EST Glomerular Filtration Rate 55 mL/min (>60); Est Glom Filt Rate - Afr Amer 66 mL/min (>60); Globulin 3.6 g/dL (2.2-4.2); Glucose 240 mg/dL (74-106); Potassium 3.9 mmol/L (3.5-5.1); Protein, Total 7.2 g/dL (6.4-8.2); Sodium Level 135 mmol/L (136-145)
== END ==
PROVIDERS: PCP Family Medicine Geriatric Medicine; Referring Provider Internal Medicine Rheumatology; Visit Provider Internal Medicine Rheumatology
DX: M06.4 Inflammatory polyarthropathy (principal); K21.9 Gastro-esophageal reflux disease without esophagitis; I10 Essential (primary) hypertension; E11.9 Type 2 diabetes mellitus without complications; E78.5 Hyperlipidemia, unspecified; N40.1 Benign prostatic hyperplasia with lower urinary tract symptoms; Z79.899 Other long term (current) drug therapy
CPT/HCPCS: 36415; 80053; 85025

== ENCOUNTER → 2020-09-26 10:22 | Outpatient (CLI) | payer MEDICARE, SELFPAY ==
[2020-07-10 12:58] VITALS: BMI 32.1
[2020-09-26 12:15] LABS: Basophil# 0.13 X10^3/uL; Basophil% 1.3 % (0-1); Eosinophil# 0.22 X10^3/uL; Eosinophils% 2.2 % (0-5); Hematocrit 33.8 % (40-54); Hemoglobin 11.4 g/dL (13.0-16.5); Lymphocyte % 23.4 % (19-41); Mean Corp Hgb Conc 33.7 g/dL (32-36); Mean Corpuscular Hgb 30.8 pg (27.0-32.0); Mean Corpuscular Volume 91.4 fL (80-94); Mean Platelet Vol. 11.7 fl (6.2-12.0); Monocyte# 1.11 X10^3/uL; Monocyte% 11.3 % (0-10); NRBC Flagged by Analyzer 0 % (0-5); Neutrophil # 5.96 X10^3/uL (2.7-7.7); Neutrophil % 60.5 % (47-70); Platelet Count 215 K/mm3 (150-450); RBC Distribution Width CV 13.9 % (11.6-14.6); RBC Distribution Width SD 47.1 fl (35.1-43.9); White Blood Count 9.9 K/mm3 (4.4-11.0)
[2020-09-26 12:50] LABS: AST(SGOT) 21 U/L (15-37); Alanine Aminotransfer ALT/SGPT 25 U/L (16-61); Albumin, Serum 3.6 g/dL (3.2-5.0); Alkaline Phosphatase 92 U/L (45-117); Anion Gap 9 (5-15); BUN 24 mg/dL (7-18); Calcium,Total 8.7 mg/dL (8.5-10.1); Chloride 105 mmol/L (98-107); Creatinine, Serum 1.41 mg/dL (0.70-1.30); EST Glomerular Filtration Rate 52 mL/min (>60); Est Glom Filt Rate - Afr Amer 62 mL/min (>60); Globulin 3.6 g/dL (2.2-4.2); Glucose 194 mg/dL (74-106); Potassium 4.3 mmol/L (3.5-5.1); Protein, Total 7.2 g/dL (6.4-8.2); Sodium Level 137 mmol/L (136-145); Thyroid Stim Hormone (TSH) 1.04 uIU/mL (0.358-3.74)
[2020-09-27 12:11] LABS: Vitamin D,25 Hydroxy 26.8 ng/mL
== END ==
PROVIDERS: PCP Family Medicine Geriatric Medicine; Visit Provider Family Medicine Geriatric Medicine
DX: I10 Essential (primary) hypertension (principal); E11.9 Type 2 diabetes mellitus without complications; E55.9 Vitamin D deficiency, unspecified
CPT/HCPCS: 36415; 80053; 82306; 84443; 85025

== ENCOUNTER → 2020-10-24 14:52 | Outpatient (CLI) | payer MEDICARE, SELFPAY ==
[2020-09-26 13:23] VITALS: BMI 32.1
[2020-10-24 16:57] LABS: Anion Gap 9 (5-15); BUN 26 mg/dL (7-18); BUN/Creat Ratio 18.6 RATIO (10-20); Chloride 103 mmol/L (98-107); EST Glomerular Filtration Rate 52 mL/min (>60); Est Glom Filt Rate - Afr Amer 63 mL/min (>60); Glucose 239 mg/dL (74-106); Potassium 4.4 mmol/L (3.5-5.1); Sodium Level 136 mmol/L (136-145)
== END ==
PROVIDERS: PCP Family Medicine Geriatric Medicine; Visit Provider Family Medicine Geriatric Medicine
DX: I10 Essential (primary) hypertension (principal)
CPT/HCPCS: 36415; 80048

== ENCOUNTER → 2020-10-30 12:59 | Outpatient (CLI) | payer MEDICARE, SELFPAY ==
[2020-09-26 13:23] VITALS: BMI 32.1
--- NOTE | 2020-10-30 09:19 | EKG12_ITS ---
Test Reason : PRE OP Blood Pressure : / mmHG Vent. Rate : 068 BPM Atrial Rate : 068 BPM P-R Int : 220 ms QRS Dur : 104 ms QT Int : 430 ms P-R-T Axes : 073 -25 061 degrees QTc Int : 457 ms Sinus rhythm with 1st degree A-V block Otherwise normal ECG Confirmed by LOBITO REA, PARKER ([id number]), french cord binder WOLFGANG GRAHAM ([id number]) on 10/31/2020 10:20:14 AM Referred By: Errol Cole Confirmed By:PARKER ROBIN MD
[2020-10-30 10:38] LABS: Absolute Lymphocyte Count 1.56 X10^3/uL (0.83-4.51); Absolute Neutrophil Count 7.4 X10^3/uL (2.0-7.7); Basophil# 0.08 X10^3/uL; Basophil% 0.8 % (0-1); Eosinophil# 0.12 X10^3/uL; Eosinophils% 1.2 % (0-5); Hematocrit 32.5 % (40-54); Hemoglobin 10.8 g/dL (13.0-16.5); Lymphocyte # 1.56 X10^3/ul (0.83-4.51); Lymphocyte % 15.2 % (19-41); Mean Corp Hgb Conc 33.2 g/dL (32-36); Mean Corpuscular Hgb 30.4 pg (27.0-32.0); Mean Corpuscular Volume 91.5 fL (80-94); Mean Platelet Vol. 11.8 fl (6.2-12.0); Monocyte# 0.95 X10^3/uL; Monocyte% 9.3 % (0-10); NRBC Flagged by Analyzer 0 % (0-5); Neutrophil # 7.44 X10^3/uL (2.7-7.7); Neutrophil % 72.6 % (47-70); Platelet Count 220 K/mm3 (150-450); RBC Distribution Width CV 13.7 % (11.6-14.6); RBC Distribution Width SD 46.5 fl (35.1-43.9); Red Blood Count 3.55 M/mm3 (4.6-6.2); White Blood Count 10.2 K/mm3 (4.4-11.0)
[2020-10-30 10:55] LABS: AST(SGOT) 16 U/L (15-37); Alanine Aminotransfer ALT/SGPT 20 U/L (16-61); Albumin, Serum 3.8 g/dL (3.2-5.0); Alkaline Phosphatase 95 U/L (45-117); Bilirubin, Direct 0.12 mg/dL (0.00-0.30); Globulin 3.6 g/dL (2.2-4.2); Protein, Total 7.4 g/dL (6.4-8.2)
[2020-10-30 10:57] LABS: ALB/GLOB Ratio 1.1 RATIO (0.9-2.4); AST(SGOT) 18 U/L (15-37); Alanine Aminotransfer ALT/SGPT 21 U/L (16-61); Albumin, Serum 3.8 g/dL (3.2-5.0); Alkaline Phosphatase 95 U/L (45-117); Anion Gap 9 (5-15); BUN 28 mg/dL (7-18); BUN/Creat Ratio 19.3 RATIO (10-20); Calcium,Total 8.6 mg/dL (8.5-10.1); Chloride 104 mmol/L (98-107); Creatinine, Serum 1.45 mg/dL (0.70-1.30); EST Glomerular Filtration Rate 50 mL/min (>60); Est Glom Filt Rate - Afr Amer 60 mL/min (>60); Globulin 3.6 g/dL (2.2-4.2); Glucose 207 mg/dL (74-106); Potassium 3.9 mmol/L (3.5-5.1); Protein, Total 7.4 g/dL (6.4-8.2); Sodium Level 137 mmol/L (136-145)
[2020-10-30 11:06] LABS: Prothrombin Time (Protime)PT. 12.7 SECONDS (11.7-14.9)
[2020-10-30 11:21] LABS: HIV - WCH Non-Reactive (Nonreactive)
[2020-10-31 05:07] LABS: HEPATITIS B SURFACE AG Negative (Negative); Hepatitis A AB, Total Negative (Negative); Hepatitis A IgM Antibody Negative (Negative); Hepatitis B Core AB IgM Negative (Negative); Hepatitis B Core Ab Total Negative (Negative); Hepatitis C Ab <0.1 s/co ratio (0.0-0.9)
[2020-10-31 11:41] LABS: Hep B Surface Antibodies Non Reactive (.)
== END ==
PROVIDERS: Anesthesiology; PCP Family Medicine Geriatric Medicine; Referring Provider Orthopaedic Surgery; Visit Provider Orthopaedic Surgery
DX: Z01.812 Encounter for preprocedural laboratory examination (principal); Z01.810 Encounter for preprocedural cardiovascular examination; M06.4 Inflammatory polyarthropathy; K21.9 Gastro-esophageal reflux disease without esophagitis; I10 Essential (primary) hypertension; E11.9 Type 2 diabetes mellitus without complications; E78.5 Hyperlipidemia, unspecified; N40.1 Benign prostatic hyperplasia with lower urinary tract symptoms; Z79.899 Other long term (current) drug therapy
CPT/HCPCS: 36415; 80053; 80076; 83735; 85025; 85610; 85730; 86703; 86704; 86705; 86706; 86708; 86709; 86803; 87081; 87340; 93005

== ENCOUNTER → 2020-12-20 11:11 | Outpatient (CLI) | payer MEDICARE, SELFPAY ==
[2020-12-20 12:09] LABS: Absolute Lymphocyte Count 1.29 X10^3/uL (0.83-4.51); Absolute Neutrophil Count 5.7 X10^3/uL (2.0-7.7); Basophil# 0.09 X10^3/uL; Basophil% 1.1 % (0-1); Eosinophil# 0.07 X10^3/uL; Eosinophils% 0.9 % (0-5); Hematocrit 31.4 % (40-54); Hemoglobin 10.7 g/dL (13.0-16.5); Lymphocyte # 1.29 X10^3/ul (0.83-4.51); Lymphocyte % 16.1 % (19-41); Mean Corp Hgb Conc 34.1 g/dL (32-36); Mean Corpuscular Hgb 30.6 pg (27.0-32.0); Mean Corpuscular Volume 89.7 fL (80-94); Mean Platelet Vol. 11.7 fl (6.2-12.0); Monocyte# 0.79 X10^3/uL; Monocyte% 9.9 % (0-10); NRBC Flagged by Analyzer 0 % (0-5); Neutrophil # 5.73 X10^3/uL (2.7-7.7); Neutrophil % 71.6 % (47-70); Platelet Count 181 K/mm3 (150-450); RBC Distribution Width CV 14.4 % (11.6-14.6); RBC Distribution Width SD 46.6 fl (35.1-43.9)
[2020-12-20 12:52] LABS: ALB/GLOB Ratio 1.1 RATIO (0.9-2.4); AST(SGOT) 32 U/L (15-37); Alanine Aminotransfer ALT/SGPT 22 U/L (16-61); Albumin, Serum 3.8 g/dL (3.2-5.0); Alkaline Phosphatase 75 U/L (45-117); Anion Gap 6 (5-15); BUN 26 mg/dL (7-18); BUN/Creat Ratio 19.5 RATIO (10-20); Calcium,Total 9.2 mg/dL (8.5-10.1); Chloride 106 mmol/L (98-107); Creatinine, Serum 1.33 mg/dL (0.70-1.30); EST Glomerular Filtration Rate 55 mL/min (>60); Est Glom Filt Rate - Afr Amer 67 mL/min (>60); Globulin 3.6 g/dL (2.2-4.2); Glucose 108 mg/dL (74-106); Potassium 4.1 mmol/L (3.5-5.1); Protein, Total 7.4 g/dL (6.4-8.2); Sodium Level 135 mmol/L (136-145)
== END ==
PROVIDERS: PCP Family Medicine Geriatric Medicine; Referring Provider Internal Medicine Rheumatology; Visit Provider Internal Medicine Rheumatology
DX: M06.4 Inflammatory polyarthropathy (principal); K21.9 Gastro-esophageal reflux disease without esophagitis; I10 Essential (primary) hypertension; E11.9 Type 2 diabetes mellitus without complications; E78.5 Hyperlipidemia, unspecified; N40.1 Benign prostatic hyperplasia with lower urinary tract symptoms; Z79.899 Other long term (current) drug therapy
CPT/HCPCS: 36415; 80053; 85025

== ENCOUNTER 2020-12-24 09:00 | Outpatient (RCR) | payer MEDICARE, SELFPAY ==
[2020-11-02 10:33] VITALS: BMI 32.1
--- NOTE | 2020-11-22 14:45 | HP.PTEVAL_ITS ---
Patient's Visit Information CELIA BARNARD is a 80 year old M referred to Physical Therapy by Dr. Garfield Montalvo DO with a diagnosis of Left OA- Prehab for left THR. Date of Evaluation: 11/22/20 Physical Therapist: Maryam Santoyo DPT - Visit Plan Frequency: 2x /Week Duration: 4 Weeks Plan: Aquatic Therapy Prehab for left THR - Subjective Was supposed to have back surgery November 08- took more x-rays and told him that his left hip needed to go first. He had injections in his back which made his blood sugar go crazy- has to get that under control- plans to have the surgery at the end of December. The pain in his hip is constant. When he is sitting in the recliner it goes away. But does have spasms at night and when she is sitting in the chair. Pain is located in the groin- to the knee and along the buttocks. All left sided pains. Describes the pain as dull and achy. Worst: 8/10 Agg: walking around and standing, Best: 0/10 Eases: sitting or laying down. No N/T in the left LE. Pain slows him down- he is normally pretty active and wants to get back to all of his stuff. Back surgery was going to be done by Dr. Cole- who then sent him to Dr. Rivera. PMHX/Meds: see Dr. Rivera- additional medication for DM- Uses a cane for the last 9 months- all the time. - Objective Posture: FH, RS increased kyphosis- can correct but is unable to maintain. Gait: severely antalgic- slow itz- uses straight cane. Decreased stance on left LE- sb of trunk to the right. Stairs: asc/desc 8 non recip with SC and HR. HR/TR: able with UE A report pain. Balance: see FGA. Unable to SLS without uE a and report pain. ROM: Hip: Flexion: 100 degrees, Extn: neutral, IR: neutral ER: 10 degrees. Sensation: WFL to gross touch in bilateral LE. Strength: Core: fair, Hip: 4/5 throughout, Knee: 4+/5, Ankle: 5/5. Flex: HS: severe, Gastroc: severe. 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: 13 reps with bilateral UE TU.54 seconds with straight cane - Goals Goal 1:: Patient will be I with HEP and progression Goal Time Frame: 4-6 Weeks Goal 2:: Patient will ambulate >300 feet with a normalized gait pattern and LRD Goal Time Frame: 4-6 Weeks Goal 3:: Patient will report no more than 4/10 pain for 1 week Goal Time Frame: 4-6 Weeks - Rehabilitation Potential Physical Therapy Diagnosis: Patient presents with hypomobility- he has decreased pain free ROM, core and LE strength/stabilization, flexibility and muscular endurance leading to abnormal gait and decreased ability to perform ADL's. Rehabilitation Potential: Good - Anticipated Interventions Patient/Client Instruction: Educate patient on: Benefits of Fitness Program Therapeutic Exercise to Include: Strength training, Balance training, Agility training, Body mechanics, Postural training, Flexibilty training, Gait and locomotor training, Neuromotor development, In an aquatic setting, Passive ROM, Active ROM, Dynamic Lumbar Stabilization, Scapular Strength/Stabilization For the Purpose of:: To improve muscle performance and motor function Thank you for the opportunity to evaluate your patient. For Medicare and Medicare HMO plans, please review the plan of care and approve it. It will need to be FAXED BACK to us at [phone] for Medicare purposes. For Medicare only, by signing this I certify the plan of care. Please let me know if there are questions or concerns regarding this plan of care. Physician Signature: Date :
--- NOTE | 2020-12-24 09:28 | HP.PTREVAL ---
Dr. Garfield Montalvo, DO, It has been my pleasure to treat CELIA BARNARD over the last 10 visits for Left OA- Prehab for left THR. Please see the progress note below for an update on the physical therapy plan of care! Subjective: Pool treated him really well. Got more movement in hip but it did not help pain at all. L hip needs replaced. Will see Narda on 01/03 and if A1c under control then they will set surgery date. Doing HEP of stretches and movemets to hip. Wants to f/u with Dr. Laboy. Started new pain meds yesterday for vicodin and it seems to help. / Ousmane put him on that. Objective/Function: R hip PROM limited by pain to 20 ext rot, 3 IR, 85 flexion, 0 ext, 5 abduction. All tight endfeels and limited by pain and firm endfeel. Walking with cane in R UE hunched over and antalgic on L but I with gait and transfers. Strength is 4- on hips, 4 in knees. LB extension is max limited, flexion is functional. Overall pt is improving ROM but not pain. Plan Plan: Hold, pt to call for rehab after L hip surgery or prior if needs further PT before that. To Doctor next week and will continue home ROM and strenthces and gentle strength until that time. Balance/Gait/Functional tests - Balance/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 Scores Lower Extremity Functional Score: 33 Goals Goal 1:: Patient will be I with HEP and progression Goal Time Frame: 4-6 Weeks Goal Progress: Goal Met Goal 2:: Patient will ambulate >300 feet with a normalized gait pattern and LRD Goal Time Frame: 4-6 Weeks Goal Progress: Not Progressing Goal 3:: Patient will report no more than 4/10 pain for 1 week Goal Time Frame: 4-6 Weeks Goal Progress: 5/10 Anticipated Interventions Patient/Client Instruction: Educate patient on: Benefits of Fitness Program Therapeutic Exercise to Include: Strength training, Balance training, Agility training, Body mechanics, Postural training, Flexibilty training, Gait and locomotor training, Neuromotor development, In an aquatic setting, Passive ROM, Active ROM, Dynamic Lumbar Stabilization, Scapular Strength/Stabilization For the Purpose of:: To improve muscle performance and motor function Please do not hesitate to contact me at [phone] by phone or if you have questions or concerns regarding this new plan of care! Sincerely, Tejas Thacker, DPT, OCS, CSCS
--- NOTE | 2021-03-04 08:05 | HP.PT.NRP ---
CELIA BARNARD was seen in my office for initial evaluation on 11/22/20. The following Plan of Care was established for this patient: Initial Frequency: 2x /Week Initial Duration: 4 Weeks Patient/Client Instruction: Educate patient on: Benefits of Fitness Program Therapeutic Exercise to Include: Strength training, Balance training, Agility training, Body mechanics, Postural training, Flexibilty training, Gait and locomotor training, Neuromotor development, In an aquatic setting, Passive ROM, Active ROM, Dynamic Lumbar Stabilization, Scapular Strength/Stabilization For the Purpose of:: To improve muscle performance and motor function This patient was last seen in our office . Pertinent comments regarding their Physical therapy will appear below: Patient has not attended PT in over 4 weeks and is appropriate for discharge- return to MD for further evaluation as needed. At this point I will be discontinuing this patient from physical therapy. I would be happy to see this patient again in the future if found appropriate by the physician. Thank you! Maryam Santoyo, YAKELINT Balance/Gait/Functional tests - Balance/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 Scores Lower Extremity Functional Score: 33
== END 2020-12-24 19:00 | disposition home or self-care (01) ==
LOC: PT 09:00
PROVIDERS: PCP Family Medicine Geriatric Medicine; Referring Provider Orthopaedic Surgery; Visit Provider Orthopaedic Surgery
DX: M16.12 Unilateral primary osteoarthritis, left hip (principal); R26.9 Unspecified abnormalities of gait and mobility
CPT/HCPCS: 97113; 97164

== ENCOUNTER → 2020-12-31 11:31 | Outpatient (CLI) | payer MEDICARE, SELFPAY ==
[2020-12-31 12:37] LABS: Absolute Lymphocyte Count 1.53 X10^3/uL (0.83-4.51); Absolute Neutrophil Count 4.1 X10^3/uL (2.0-7.7); Basophil# 0.08 X10^3/uL; Basophil% 1.2 % (0-1); Eosinophil# 0.14 X10^3/uL; Eosinophils% 2.1 % (0-5); Hematocrit 33.9 % (40-54); Hemoglobin 11.2 g/dL (13.0-16.5); Lymphocyte # 1.53 X10^3/ul (0.83-4.51); Lymphocyte % 23.3 % (19-41); Mean Corpuscular Hgb 29.9 pg (27.0-32.0); Mean Corpuscular Volume 90.4 fL (80-94); Mean Platelet Vol. 11.6 fl (6.2-12.0); Monocyte# 0.71 X10^3/uL; Monocyte% 10.8 % (0-10); NRBC Flagged by Analyzer 0 % (0-5); Neutrophil # 4.08 X10^3/uL (2.7-7.7); Neutrophil % 62.3 % (47-70); Platelet Count 201 K/mm3 (150-450); RBC Distribution Width CV 14.4 % (11.6-14.6); RBC Distribution Width SD 47.5 fl (35.1-43.9); Red Blood Count 3.75 M/mm3 (4.6-6.2); White Blood Count 6.6 K/mm3 (4.4-11.0)
[2020-12-31 13:06] LABS: Vitamin B12 392 pg/mL (211-911); Vitamin D,25 Hydroxy 37.6 ng/mL
[2020-12-31 13:15] LABS: AST(SGOT) 22 U/L (15-37); Alanine Aminotransfer ALT/SGPT 20 U/L (16-61); Albumin, Serum 3.8 g/dL (3.2-5.0); Alkaline Phosphatase 75 U/L (45-117); Anion Gap 4 (5-15); BUN 28 mg/dL (7-18); BUN/Creat Ratio 21.7 RATIO (10-20); Chloride 110 mmol/L (98-107); Creatinine, Serum 1.29 mg/dL (0.70-1.30); EST Glomerular Filtration Rate 57 mL/min (>60); Est Glom Filt Rate - Afr Amer 69 mL/min (>60); Ferritin 662 ng/mL (26-388); Glucose 71 mg/dL (74-106); Iron 67 ug/dL (65-175); Iron Binding Capacity,Total 275 ug/dL (250-450); PERCENT IRON SATURATION 24.4 % (15.0-55.0); Potassium 4.3 mmol/L (3.5-5.1); Protein, Total 7.8 g/dL (6.4-8.2); Sodium Level 139 mmol/L (136-145); Thyroid Stim Hormone (TSH) 0.81 uIU/mL (0.358-3.74); Uric Acid 4.8 mg/dL (3.5-7.2)
== END ==
PROVIDERS: PCP Family Medicine Geriatric Medicine; Visit Provider Internal Medicine Hematology & Oncology
DX: E11.22 Type 2 diabetes mellitus with diabetic chronic kidney disease (principal); N18.30 Chronic kidney disease, stage 3 unspecified; M10.9 Gout, unspecified; E23.6 Other disorders of pituitary gland; I12.9 Hypertensive chronic kidney disease with stage 1 through stage 4 chronic kidney disease, or unspecified chronic kidney disease; D63.1 Anemia in chronic kidney disease; D64.9 Anemia, unspecified; E53.8 Deficiency of other specified B group vitamins; E55.9 Vitamin D deficiency, unspecified
CPT/HCPCS: 36415; 80053; 82306; 82607; 82728; 82746; 83540; 83550; 84403; 84443; 84550; 85025

== ENCOUNTER → 2021-01-17 07:16 | Outpatient (CLI) | payer MEDICARE, SELFPAY ==
--- NOTE | 2021-01-17 07:18 | CT_ITS ---
STUDY: CT SCAN HIP LEFT REASON FOR EXAM: Male, 80 years old. Templating for left DAWSON RADIATION DOSAGE (If Supplied By Facility): CTDIvol = ( 14.07 ) mGy, DLP = ( 865.54 ) mGycm. Individualized dose optimization techniques were used for this CT.? TECHNIQUE: Multiple axial tomographic images of the left hip were obtained without intravenous contrast demonstration. Sagittal and coronal reconstruction was obtained as well. COMPARISON: Comparison is made with prior radiograph dated 11/02/2020. FINDINGS: Disc space narrowing and disc degeneration with a spondylosis in the lower lumbar spine. There is evidence of a moderate degree of degenerative change with spur formation of the sacroiliac joints bilaterally. Marked degree of joint space narrowing of the left hip joint with subchondral cysts at the level of the femoral head and acetabulum. There is superior lateral migration of the femoral head. Moderate to marked degree of osteoarthritis of the right hip joint with peripheral spur formation of the right femoral head. CT/Extremity Lower without Contra IMPRESSION: Marked degree of osteoarthritis with subchondral cysts at the level of the femoral head and acetabulum on the left hip joint in keeping with severe osteoarthritis. Electronically Signed: Dave Price MD at 14:48 EDT , Service support ,
== END ==
PROVIDERS: PCP Family Medicine Geriatric Medicine; Referring Provider Orthopaedic Surgery; Visit Provider Orthopaedic Surgery
DX: M16.12 Unilateral primary osteoarthritis, left hip (principal)
CPT/HCPCS: 73700

== ENCOUNTER → 2021-01-30 16:44 | Outpatient (CLI) | payer MEDICARE, SELFPAY ==
[2021-01-30 17:01] LABS: Absolute Lymphocyte Count 2.16 X10^3/uL (0.83-4.51); Absolute Neutrophil Count 3.8 X10^3/uL (2.0-7.7); Basophil# 0.09 X10^3/uL; Basophil% 1.3 % (0-1); Eosinophil# 0.18 X10^3/uL; Eosinophils% 2.6 % (0-5); Hematocrit 31.5 % (40-54); Hemoglobin 10.4 g/dL (13.0-16.5); Lymphocyte # 2.16 X10^3/ul (0.83-4.51); Lymphocyte % 30.9 % (19-41); Mean Corpuscular Hgb 29.6 pg (27.0-32.0); Mean Corpuscular Volume 89.7 fL (80-94); Mean Platelet Vol. 11.5 fl (6.2-12.0); Monocyte# 0.74 X10^3/uL; Monocyte% 10.6 % (0-10); NRBC Flagged by Analyzer 0 % (0-5); Neutrophil # 3.81 X10^3/uL (2.7-7.7); Neutrophil % 54.5 % (47-70); Platelet Count 175 K/mm3 (150-450); RBC Distribution Width CV 15.2 % (11.6-14.6); RBC Distribution Width SD 49.3 fl (35.1-43.9); Red Blood Count 3.51 M/mm3 (4.6-6.2)
[2021-01-30 17:13] LABS: International Normalized Ratio 1.1; Prothrombin Time (Protime)PT. 13.5 SECONDS (11.7-14.9)
[2021-01-30 17:17] LABS: Anion Gap 8 (5-15); BUN 24 mg/dL (7-18); BUN/Creat Ratio 15.9 RATIO (10-20); Calcium,Total 8.6 mg/dL (8.5-10.1); Chloride 107 mmol/L (98-107); Creatinine, Serum 1.51 mg/dL (0.70-1.30); EST Glomerular Filtration Rate 48 mL/min (>60); Est Glom Filt Rate - Afr Amer 58 mL/min (>60); Glucose 99 mg/dL (74-106); Potassium 4.1 mmol/L (3.5-5.1); Sodium Level 138 mmol/L (136-145)
== END ==
PROVIDERS: PCP Family Medicine Geriatric Medicine; Visit Provider Family Medicine Geriatric Medicine
DX: Z01.818 Encounter for other preprocedural examination (principal)
CPT/HCPCS: 36415; 80048; 85025; 85610

== ENCOUNTER → 2021-02-12 11:16 | Outpatient (CLI) | payer MEDICARE, SELFPAY ==
[2021-02-12 14:59] LABS: Absolute Lymphocyte Count 1.88 X10^3/uL (0.83-4.51); Absolute Neutrophil Count 3.6 X10^3/uL (2.0-7.7); Basophil% 1.5 % (0-1); Eosinophil# 0.18 X10^3/uL; Eosinophils% 2.8 % (0-5); Hematocrit 31.7 % (40-54); Hemoglobin 10.2 g/dL (13.0-16.5); Lymphocyte # 1.88 X10^3/ul (0.83-4.51); Lymphocyte % 29.1 % (19-41); Mean Corp Hgb Conc 32.2 g/dL (32-36); Mean Corpuscular Hgb 29.2 pg (27.0-32.0); Mean Corpuscular Volume 90.8 fL (80-94); Mean Platelet Vol. 12.1 fl (6.2-12.0); Monocyte# 0.69 X10^3/uL; Monocyte% 10.7 % (0-10); NRBC Flagged by Analyzer 0 % (0-5); Neutrophil # 3.59 X10^3/uL (2.7-7.7); Neutrophil % 55.6 % (47-70); Platelet Count 189 K/mm3 (150-450); RBC Distribution Width CV 15.7 % (11.6-14.6); RBC Distribution Width SD 51.9 fl (35.1-43.9); Red Blood Count 3.49 M/mm3 (4.6-6.2); White Blood Count 6.5 K/mm3 (4.4-11.0)
[2021-02-12 15:40] LABS: ALB/GLOB Ratio 0.9 RATIO (0.9-2.4); AST(SGOT) 18 U/L (15-37); Alanine Aminotransfer ALT/SGPT 19 U/L (16-61); Albumin, Serum 3.4 g/dL (3.2-5.0); Alkaline Phosphatase 80 U/L (45-117); Anion Gap 8 (5-15); BUN 21 mg/dL (7-18); Calcium,Total 8.5 mg/dL (8.5-10.1); Chloride 105 mmol/L (98-107); Creatinine, Serum 1.31 mg/dL (0.70-1.30); EST Glomerular Filtration Rate 56 mL/min (>60); Est Glom Filt Rate - Afr Amer 68 mL/min (>60); Globulin 3.7 g/dL (2.2-4.2); Glucose 103 mg/dL (74-106); Potassium 3.8 mmol/L (3.5-5.1); Protein, Total 7.1 g/dL (6.4-8.2); Sodium Level 138 mmol/L (136-145)
== END ==
PROVIDERS: PCP Family Medicine Geriatric Medicine; Referring Provider Internal Medicine Rheumatology; Visit Provider Internal Medicine Rheumatology
DX: M06.4 Inflammatory polyarthropathy (principal); G56.03 Carpal tunnel syndrome, bilateral upper limbs; K21.9 Gastro-esophageal reflux disease without esophagitis; I10 Essential (primary) hypertension; E11.9 Type 2 diabetes mellitus without complications; E78.5 Hyperlipidemia, unspecified; N40.1 Benign prostatic hyperplasia with lower urinary tract symptoms; Z79.899 Other long term (current) drug therapy
CPT/HCPCS: 36415; 80053; 85025

== ENCOUNTER 2021-02-19 06:52 | Inpatient (IN) | payer MEDICARE, SELFPAY ==
[2021-02-06 16:01] LABS: Partial Thromboplast Time 29.7 Seconds (24.1-36.2)
[2021-02-06 16:11] LABS: Magnesium 2.1 mg/dL (1.6-2.6)
[2021-02-06 16:37] LABS: Hemoglobin A1c 6.4 % (3.8-5.6)
[2021-02-08 09:59] LABS: Fructosamine 268 umol/L (0-285)
[2021-02-19] VITALS (14 sets, daily range): BP systolic 116–162; BP diastolic 68–98; PULSE 50–71; RESP 16–18; TEMP 36.1–36.7; O2SAT 95–100; BMI 30.9; BMI 32.8; BMI 109.7
[2021-02-19] MEDS: Acetaminophen 500 MG Tablet 1000 MG PO ×3 (07:39→22:15)
[2021-02-19] MEDS: Gabapentin 600 MG Tablet PO (07:39)
[2021-02-19] MEDS: Scopolamine 1mg/72hr Patch 1 PATCH TD (07:40)
[2021-02-19] MEDS: Lactated Ringers 1,000 ML 100 ML IV ×2 (07:43→15:58)
[2021-02-19] MEDS: Lactated Ringers 1,000 ML 999 ML IV (07:44)
--- NOTE | 2021-02-19 09:54 | PCM.HP.BLA ---
History and Physical Date of Admission: 02/19/21 Date of Service: 01/03/21 MR#:[id number]: CELIA BARNARDRep #:[id number]:[id number] Provider:Dr. Garfield Montalvo DOAge/Sex: 80/M Location:[place]:Signed Intake Vital Signs 01/03/21 10:32 Height 6 ft Weight: 224 lb BMI 30.4 Intake Visit Reasons: Left hip Is patient in pain?: Yes Allergies No Known Allergies Allergy (Verified 01/03/21 10:33) Medications finasteride [Proscar] 5 mg PO DAILY 08/22/13 [History Confirmed 11/02/20] hydroxychloroquine 200 mg tablet 200 mg PO BID 02/25/19 [History Confirmed 11/02/20] omeprazole 10 mg capsule,delayed release 10 mg PO DAILY cap 02/25/19 [History Confirmed 11/02/20] ferrous sulfate 325 mg (65 mg iron) tablet 65 mg PO DAILY 02/28/19 [History Confirmed 11/02/20] amlodipine 10 mg PO DAILY 01/02/20 [History Confirmed 11/02/20] pioglitazone [Actos] 30 mg PO DAILY 01/02/20 [History Confirmed 11/02/20] Prednisone 1 tab PO DAILY PRN 01/03/20 [History Confirmed 11/02/20] Vitamin D3 1,000 unit PO DAILY 01/03/20 [History Confirmed 11/02/20] tramadol 50 mg PO 4X/DAY 01/03/20 [History Confirmed 11/02/20] benazepril 10 mg PO DAILY 10/25/20 [History Confirmed 11/02/20] leflunomide 5 mg PO DAILY 10/25/20 [History Confirmed 11/02/20] insulin glargine 100 unit-lixisenatide 33 mcg/mL subcutaneous pen 15 unit SUBCUT QAM 01/03/21 [History Confirmed 01/03/21] [facility] Medical History (Updated 01/03/21 @ 11:[address] Garfield Montalvo, ) Ambulates with cane Anemia Arthritis BPH (benign prostatic hyperplasia) Bruising Chronic kidney disease (CKD) Chronic kidney disease, stage III (moderate) Diabetes Easy bruising Essential hypertension GERD (gastroesophageal reflux disease) History of atrial fibrillation Hyperlipidemia Injury of head and neck Loss of hearing New onset atrial fibrillation (02/2019) Obesity Osteoarthritis Sciatica Subdural hematoma (2013) Type 2 diabetes mellitus without complication Vitamin B 12 deficiency Wears hearing aid Surgical History History of vocal cord polypectomy Family History Father CAD (coronary artery disease) Parkinson disease Mother Cancer Social History (Updated 04/18/20 @ 12:[address] Errol Cole, ) Smoking Status: Former smoker alcohol intake: never what type of physical activity do you participate in: walking frequency: daily HPI Left hip Details: Parts of this documentation were recorded by a scribe, this documentation accurately reflects the service provided and the decisions made by me, Dr. Garfield Montalvo DO 01/03/21 0752. CELIA BARNARD is a 80 year old M here today for continued left hip pain. Patient notes that he continues to have pain over his groin and into his lateral hip, down into his thigh. Patient ambulates with a slow gait and uses a cane due to his hip pain. He is currently taking a new medication for his diabetes and his A1C is currently 6.6. ROS Musc Reports arthralgias, Denies numbness and Denies tingling Neuro No numbness and No tingling Ortho Exam General General: Yes no acute distress Neurologic: Yes alert Psychologic: Yes reasonable and appropriate Left Hip Skin/Wound: Yes CDI, No Ecchymosis, No soft tissue swelling and No Erythema Hip: Absent eccymosis, soft tissue swelling, erythema or tender to palpate - internal rotation @90 degree flexion: 0 degrees external rotation @90 degree extension: 10 degrees 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s: No TTP Greater Troch HIP: lumbar flexion posture Significant stiffness with hip range of motion with pain in the groin and but with hip range of motion. Supplemental Info 11/02/2020 x-ray left hip advanced left hip arthrosis Coding Level of Care Code Off vis,est,level 3 Diagnoses Primary osteoarthritis of left hip M16.12 Anemia of chronic renal failure, stage 3 (moderate) N18.3; D63.1 Spinal stenosis of lumbar region at multiple levels M48.061 Rheumatoid arthritis M06.9 Diabetes mellitus E11.9 Assessment and Plan Assessment and Plan (1) Primary osteoarthritis of left hip: Status: Acute (2) Anemia of chronic renal failure, stage 3 (moderate): Status: Chronic (3) Spinal stenosis of lumbar region at multiple levels: Status: Acute (4) Rheumatoid arthritis: Status: Acute (5) Diabetes mellitus: Status: Acute Plan - Dr. Garfield Montalvo DO: Spoke with the patient about the surgery procedure, risks and recovery. He will need to get a CT scan prior to his surgery. Patient will need to follow hip precautions following his surgery strictly for 6 weeks. He will continue to have hip stiffness due to the stiffness from the joint capsule. Patient will be inpatient following his surgery. He is not able to take ibuprofen or aleve 7 days prior to surgery. He will be on a blood thinner following surgery to prevent blood clots, he will also have compression stockings. Patient will use a walker following the surgery. Patient will need to keep his incision clean for 3 weeks. Risks, benefits and alternatives of surgery reviewed including but not limited to bleeding, infection, nerve, artery and/or tissue damage, fracture, VTE, leg length discrepancy, dislocation, need for hip precautions, continued pain and expected post-operative course. Due to patient's age comorbidities including diabetes will need strict glycemic control postoperatively in addition to his renal insufficiency patient will be an admission. Follow up for his 2 week post op appointment or sooner if pain, swelling, numbness or associated symptoms, or concerns develop. All questions answered. Patient in agreement of plan. Plan Details Goals & Barriers: Goals Decrease pain Decrease radiculopathy Improve ability to walk Improve posture Barriers RA DISH 01/03/21 1113<Electronically signed by Garfield Montalvo DO>Date Garfield Montalvo DO Cosigner Signature:Date I have re-examined the patient. There are no clinical changes since date of exam
[2021-02-19 09:55] LABS: Bedside Glucose 163 mg/dL (70-110)
--- NOTE | 2021-02-19 10:05 | FEM_PTH ---
PATIENT: CELIA BARNARD LOC: MS2 U#:[id number] AGE/SX: 80/M [place] [facility] [place] [place]/19/[address]: Dr. Garfield Montalvo DO : 1940 BED: 1 DIS: 02/20/2021 SPEC #: [id number] RECD: 02/19/21 12:23 STATUS: RJ REQ #: [id number] RADHA: 02/19/21 10:[address]: Garfield Montalvo DEPT: SURGICAL PATHOLOGY RECD BY: Emilia Pineda ENTERED: 02/19/21 12:57 SP TYPE: FEM HEAD OTHR DR: Dr. Franky Craig MD Tissues: Femoral region, NOS Procedures: Decalcification bone/plaque Surgery Specimen Level IV HEADER OPERATION: ERAS, total hip replacement robotic arm assist PRE-OP DIAGNOSIS: Osteoarthritis of left hip TISSUE SUBMITTED: Left hip tissue and bone MICROSCOPIC DIAGNOSIS Bone and tissue of left hip, total hip resection: Severe degenerative joint disease. AM:viktor 02/22/2021 MICROSCOPIC DESCRIPTION Slides are reviewed. GROSS DESCRIPTION Received is one container labeled with the patient's name and designated bone and soft tissue hip, left. The specimen consists of a manley femoral head measuring 6.5 x 5 x 5 cm. The articular surface displays prominent osteophyte formation, eburnation and bone erosion. Also present in the specimen container are multiple irregular fragments of bone reamings and pink-yellow soft tissue measuring in aggregate 9 x 8 x 1.5 cm. Clin Asst sections are submitted in two cassettes as follows: 1 - bone reamings, 2??femoral head after decalcification. / AM:viktor 02/19/21 TC:5 CPT: 53487, 82428
[2021-02-19] MEDS: dexAMETHasone 10 MG/ML Vial IV (10:25)
[2021-02-19] MEDS: Lactated Ringers 1,000 ML 125 ML IV (11:15)
--- NOTE | 2021-02-19 12:00 | RAD_ITS ---
STUDY: X-RAY - PELVIS AND LEFT HIP REASON FOR EXAM: Male, 80 years old. Post Op -- AP both hips on single amanda/lateral of op hip PACU TECHNIQUE: 2 views of the pelvis and hip. COMPARISON: 11/02/2020. FINDINGS: Status post left hip arthroplasty. Surgical hardware intact/well aligned. No acute complications. Moderate/severe right hip osteoarthritis. Postoperative soft tissues with staple line. RAD/Hip Min 2 Views (Portable) IMPRESSION: Uncomplicated left hip arthroplasty Moderate/severe right hip osteoarthritis Electronically Signed: Tejas Kimball DO at 12:50 EDT Tel , Service support ,
--- NOTE | 2021-02-19 12:04 | PCM.OPRPT ---
Report of Operation Date of Procedure: 02/19/21 Description of Surgical Findings:: Preoperative diagnosis: Left hip DJD Postoperative diagnosis: Same Procedure: CT-guided Makoplasty assisted left total hip arthroplasty Implants: Timothy Accolade II stem size 8, 127 degree neck angle -5 neck length 60 mm Trident II acetabular shell with 40 mm cancellous screw 36 mm ceramic head Anesthesia: Spinal EBL: 225 cc Complications: None Condition: Stable to PACU Indication for procedure: This is a 80-year-old male who has had long-standing arthrosis of the hip who has failed conservative treatment and wished to undergo total hip arthroplasty. We did discuss operative versus nonoperative intervention including risks of bleeding, infection , nerve artery tissue damage, need for further surgery, fracture, leg length discrepancy dislocation blood clot and need for postoperative physical therapy and postoperative expectations. An informed consent was signed. Procedure: Patient was met in the preoperative holding area once again the operative extremity was identified by both patient and physician and was marked. Patient was met by anesthesia . Anesthesia was started. patient was then positioned in the lateral decubitus position on a well-padded pegboard with an axillary roll. All bony prominences were checked and padded. The patient was prepped and draped in the usual sterile fashion. A timeout was called to ensure the proper patient procedure and extremity were being contemplated. Anatomic landmarks were palpated and marked for a standard posterior lateral approach. Prior to this the ASIS was palpated and 3 fingerbreadths proximal to this 3 pins were placed at a 45 degree angle into the iliac crest with good purchase, stab incisions were made with a 15 blade into the skin prior to placement. The Makoplasty array was then secured. A 10 blade scalpel was used to make a posterior incision through the skin and subcutaneous tissue. retractors were used and electrocautery was used to maintain meticulous hemostasis and dissect full-thickness flaps until the gluteal fascia was reached. The gluteal fascia was incised in line with the gluteal fibers. The bursal tissue was then freed from the underside and a Charnley retractor was placed. The femoral trochanteric checkpoint was placed and leg length was assessed using the trochanteric checkpoint and an EKG lead that was placed on the knee prior to prepping the leg .the fat pad was then elevated off of the external rotators with electrocautery and the external rotators were dissected off of the greater trochanter including the piriformis and were tagged with #1 Ethibond for later repair. The joint capsule opened with posterior trapdoor technique. The hip was surgically dislocated. The measurement on the preoperative CT from the top of the lesser trochanter to the femoral neck cut was marked Hohmann was placed around the lesser trochanter. A neck cutting guide was used to fabiola the neck with a Bovie and an oscillating saw was used complete the femoral neck cut. The femoral head was then removed and sized. We then turned our attention to the acetabulum. A Bovie was used to make a perforation in the anterior joint capsule and a Anglin retractor was placed this was repeated in the 6 o'clock position and a wide bri was placed there. With a long handled knife the labral and pulvinar tissue were removed. We then registered the acetabulum with the pointing array and confirmed our landmarks. Once the socket was thoroughly prepared and labral tissue and pulvinar was removed we single reamed with the robotic arm. We then used the robotic arm to position the acetabular implant and impacted it into place under robotic guidance. We then proceeded to place a posterior superior screw by drilling first measuring and inserting the screw. We then inserted a trial liner. And turned our attention back to the femur at this point a femoral elevator was used. As well as a pointed wide Hohmann around the lesser trochanter and a Hohmann to help retract the gluteus medius. A box chisel was used to remove excess lateral neck followed by a canal finder and a lateralizing reamer. This was followed by sequential broaches. Attention was made of the version within the canal based on preoperative templating. Once the final broach was seated we then trialed reduced the hip it was determined that a 127 degree neck angle with a -5 neck length was the appropriate size this lengthened him by 6 mm from his preoperative length. We then checked stability with shuck testing as well as flexion and internal rotation. then proceeded with hip extension and checked leg lengths at the knees and heels as well as with the trochanteric checkpoint and knee EKG lead. At this point trials were removed. A liner was inserted to the cup. The femoral stem was inserted. We re-trialed and then proceeded to impact the femoral head onto the Kenneth taper. We then surgically reduce the hip check stability again and leg lengths and were satisfied. Betadine rinse was allowed to sit for 5 minutes while everyone changed their gloves. Thorough irrigation was performed. Followed by closure of the external rotators with #2 FiberWire followed by closure of gluteal fascia with #1 Ethibond. 0 Vicryl fat stitches and 2-0 Vicryl subcutaneous stitches and devang in the skin. A pulls were placed in the pin sites over the iliac crest with Xeroform 4 x 4 and OpSite. dressing was applied to incisional area with Mepilex Ag and an abduction pillow was placed. Patient tolerated the procedure well there was no intraoperative complications all counts were correct and the patient was brought back to the PACU in stable condition
[2021-02-19 12:51] LABS: Bedside Glucose 103 mg/dL (70-110)
[2021-02-19] MEDS: Cefazolin 1 GM/50 ML BAG IV ×2 (14:06→22:19)
[2021-02-19] MEDS: Lisinopril 10 MG Tablet PO (22:14)
[2021-02-19] MEDS: Gabapentin 100 MG Capsule PO (22:14)
[2021-02-19] MEDS: Finasteride 5 MG Tablet PO (22:14)
[2021-02-19] MEDS: Ferrous Sulfate 325 MG Tablet PO (22:14)
[2021-02-19] MEDS: Senna/Docusate Sodium 1 Tablet 2 TABLET PO (22:14)
[2021-02-19] MEDS: amLODIPine 10 MG Tablet PO (22:14)
[2021-02-19] MEDS: Pioglitazone Hydrochloride 30 MG Tablet PO (22:15)
[2021-02-19 22:26] LABS: Bedside Glucose 234 mg/dL (70-110)
[2021-02-20 02:24] VITALS: BMI 109.7
[2021-02-20 02:28] VITALS: BP 135/73; PULSE 64; RESP 18; TEMP 36.6; O2SAT 95
[2021-02-20] MEDS: oxyCODONE 5 MG Tablet PO ×3 (02:37→13:19)
[2021-02-20 05:43] LABS: Hematocrit 29.9 % (40-54); Hemoglobin 9.5 g/dL (13.0-16.5); Mean Corp Hgb Conc 31.8 g/dL (32-36); Mean Corpuscular Hgb 30.1 pg (27.0-32.0); Mean Corpuscular Volume 94.6 fL (80-94); Mean Platelet Vol. 11.7 fl (6.2-12.0); Platelet Count 151 K/mm3 (150-450); RBC Distribution Width CV 15.8 % (11.6-14.6); RBC Distribution Width SD 54.5 fl (35.1-43.9); Red Blood Count 3.16 M/mm3 (4.6-6.2); White Blood Count 13.8 K/mm3 (4.4-11.0)
[2021-02-20 06:16] LABS: Anion Gap 7 (5-15); BUN 23 mg/dL (7-18); BUN/Creat Ratio 17.8 RATIO (10-20); Calcium,Total 8.6 mg/dL (8.5-10.1); Chloride 107 mmol/L (98-107); Creatinine, Serum 1.29 mg/dL (0.70-1.30); EST Glomerular Filtration Rate 57 mL/min (>60); Est Glom Filt Rate - Afr Amer 69 mL/min (>60); Estimated Creatinine Clearance 50.96 ml/min; Glucose 164 mg/dL (74-106); Potassium 4.1 mmol/L (3.5-5.1); Sodium Level 139 mmol/L (136-145)
[2021-02-20 06:18] VITALS: BMI 109.7
[2021-02-20 06:20] VITALS: BP 133/69; PULSE 67; RESP 18; TEMP 36.7; O2SAT 97
[2021-02-20] MEDS: Cefazolin 1 GM/50 ML BAG IV (06:24)
[2021-02-20] MEDS: Acetaminophen 500 MG Tablet 1000 MG PO ×2 (06:25→13:19)
[2021-02-20] MEDS: APIXABAN 2.5 MG TABLET PO ×2 (06:25→08:53)
[2021-02-20] MEDS: Pantoprazole Sodium 20 MG Tablet PO (08:53)
--- NOTE | 2021-02-20 10:15 | CASEMGMT ---
FIDE SUGGS Face to Face with patient for initial transition planning/care coordination assessment. FIDE SUGGS introduced self and role at [facility]. Patient sitting in chair, alert and oriented. Patient willing to participate in assessment and is able to answer all questions appropriately. Care providers, pharmacy, and demographics verified. Patient wishes to discharge home and is setup with [facility] for outpatient therapy. Patient states he has no further needs or concerns at this time. CM to follow for discharge planning needs that may arise. PCP: Rafa Specialists: facundo Montalvo; RA Clara; MARTIN Damian Preferred Pharmacy: [facility] retail at discharge Insurance: [employer] [facility] Prescription Benefit: yes Living Will/HPOA: yes, Cara Purvis LNOK: Living Arrangements: Patient lives with in a tri-level home with 5-7 steps and railing between levels. Patient states he was independent at home and able to ambulate stairs prior to surgery. Transportation: self/ DME/HHC: Patient states he has raised toilet, hip kit, walker, lift chair. Patient is scheduled at [facility] for outpatient therapy starting . Disposition Plan: Patient to discharge home with outpatient therapy, family support, and follow-up plans in place. Jordana JOYA, RN, CM
[2021-02-20 10:30] VITALS: BP 100/56; PULSE 77; RESP 16; TEMP 36.6; O2SAT 96
--- NOTE | 2021-02-20 12:25 | PN.ORTHO_ITS ---
Subjective Subjective Patient seen and examined. Pain controlled no nausea vomiting shortness of breath or chest pain. He is urinating successfully. Objective Data Objective Data Vital Signs: Vital Signs Temp Pulse Resp BP Pulse Ox 97.8 F 77 16 100/56 L 96 02/20/21 10:30 02/20/21 10:30 02/20/21 10:30 02/20/21 10:30 02/20/21 10:30 Oxygen Flow Rate (L/min) 6 Oxygen Delivery Method Room Air Weight: 241 lb 13.553 oz Body Mass Index (BMI) 32.8 Intake & Output: Intake and Output for Last 24 Hours 02/18/21 02/19/21 02/20/21 23:59 23:59 23:59 Intake Total 3923 / 3923 1050 / 1050 Output Total 650 / 650 750 / 750 Balance 3273 / 3273 300 / 300 Lab / Micro Data Result Diagrams: 02/20/21 05:18 02/20/21 05:18 Labs: Laboratory Results - last 24 hr 02/19/21 12:43: POC Glucose 103 02/19/21 22:13: POC Glucose 234 H 02/20/21 05:18: WBC 13.8 H, RBC 3.16 L, Hgb 9.5 L, Hct 29.9 L, MCV 94.6 H, MCH 30.1, MCHC 31.8 L, RDW Std Deviation 54.5 H, RDW Coeff of Mounika 15.8 H, Plt Count 151, MPV 11.7 02/20/21 05:18: Sodium 139, Potassium 4.1, Chloride 107, Carbon Dioxide 25.0, Anion Gap 7, BUN 23 H, Creatinine 1.29, Estim Creat Clear Calc 50.96, Est GFR (MDRD) Af Amer 69, Est GFR (MDRD) Non-Af 57 L, BUN/Creatinine Ratio 17.8, Glucose 164 H, Calcium 8.6 Micro: Microbiology 02/06/21 13:32 Swab (Method) Nasal Screen MRSA/MSSA - Final Radiography Diagnostic Testing: Radiology Impression Hip X-Ray 02/19/21 12:00 IMPRESSION: Uncomplicated left hip arthroplasty Moderate/severe right hip osteoarthritis Electronically Signed: Tejas Kimball DO at 12:50 EDT Tel , Service support , Physical Exam Const alert, oriented x3 and no apparent distress General Appearance: cooperative Extremity Extremity Narrative: Left hip dressing clean dry intact compartments soft ne urovascular intact Assessment & Plan Assessment/Plan (1) S/P total hip arthroplasty: QUALIFIERS: Laterality: left Qualified Code(s): Z96.642 - Pres ence of left artificial hip joint PLAN: Patient is doing very well. No complaints. Patient wishes to be discharged home. DC home outpatient physical therapy after second round of PT. Follow-up in the office 2 weeks.
--- NOTE | 2021-02-20 12:30 | PCM.DC ---
Discharge Instructions Diet Discharge Diet: No restrictions Activity Weight Bearing Status: Weight bearing as tolerated Dressing / Incision Call your doctor if you observe: Shortness of breath and Chest pain Additional Dressing/Incision Instructions:: Do not shower 72hrs. Begin daily showering warm water antibacterial soap postop day #3( 72hrs Post-operatively) and then daily. Leave the dressing on for 72 hours postoperatively then may remove prior to first shower and change dressing daily after this until no drainage for 2 consecutive days then may leave open to air. Follow hip precautions that were reviewed in hospital. Wear compression stockings, may remove at night. Start physical therapy as directed in hospital. Follow prescriptions instructions do not take any other pain medication or differ dosing without consulting your physician. Do not take oral NSAIDs until blood thinner has been completed , then may begin the day after completion if needed . Call Dr. Montalvo's office with any concerns. Follow Up Care Please Follow Up With: Selvin When: 2 weeks Test Results: Test results from this visit will be discussed in further detail at your follow-up appointment, if applicable. Discharge Plan Admission Admit Date/Time: 02/19/21 06:52 Attending Provider: Garfield Montalvo Primary Care Provider: Franky Craig Chi Discharge Orders/Prescriptions Prescriptions: New acetaminophen 500 mg Tablet 1,000 mg PO Q8 Qty: 100 RF: 0 oxycodone 5 mg Tablet 5 - 10 mg PO Q4H PRN PRN (Reason: Pain Score 4-10) 7 Days Qty: 60 RF: 0 Eliquis 2.5 mg Tablet 2.5 mg PO BID Qty: 42 RF: 0 Continued omeprazole 10 mg capsule,delayed release(DR/EC) 10 mg PO DAILY RF: 0 ferrous sulfate 325 mg (65 mg iron) tablet 65 mg PO QHS RF: 0 hydroxychloroquine [Plaquenil] 200 mg tablet 200 mg PO BID RF: 0 gabapentin 100 mg capsule 100 mg PO QHS RF: 0 Soliqua 100/33 100 unit-33 mcg/mL insulin pen 15 unit subcut QAM RF: 0 finasteride [Proscar] 5 MG tablet 5 mg PO QHS RF: 0 amlodipine 10 MG tablet 10 mg PO QHS RF: 0 pioglitazone [Actos] 30 MG tablet 30 mg PO QHS RF: 0 Prednisone 10 MG tablet 1 tab PO DAILY PRN (Reason: RA) RF: 0 Vitamin D3 1,000 unit PO DAILY RF: 0 benazepril 5 mg tablet 10 mg PO QHS RF: 0 Discontinued tramadol 50 MG tablet 100 mg PO BID RF: 0 leflunomide 10 mg Tablet 20 mg PO DAILY RF: 0 Referrals / Follow Up: Franky Craig Chi, MD [Primary Care Provider] -
--- NOTE | 2021-02-20 12:38 | PCM.DC.SUM ---
Providers Date of Admission: 02/19/21 Primary Care Physician: Dr. Franky Craig MD Reason For Visit: LT TOTAL HIP W SHAYLA Diagnosis Discharge Diagnosis (1) S/P total hip arthroplasty: Status: Acute Code(s): Z96.649 - Presence of unspecified artificial hip joint Qualifiers: Laterality: left Qualified Code(s): Z96.642 - Presence of left artificial hip joint Medications at Discharge Home Medications finasteride [Proscar] 5 mg PO QHS 08/22/13 hydroxychloroquine 200 mg tablet 200 mg PO BID 02/25/19 omeprazole 10 mg capsule,delayed release 10 mg PO DAILY cap 02/25/19 ferrous sulfate 325 mg (65 mg iron) tablet 65 mg PO QHS 02/28/19 amlodipine 10 mg PO QHS 01/02/20 pioglitazone [Actos] 30 mg PO QHS 01/02/20 Prednisone 1 tab PO DAILY PRN 01/03/20 Vitamin D3 1,000 unit PO DAILY 01/03/20 benazepril 10 mg PO QHS 10/25/20 insulin glargine 100 unit-lixisenatide 33 mcg/mL subcutaneous pen 15 unit SUBCUT QAM 01/03/21 gabapentin 100 mg capsule 100 mg PO QHS 01/08/21 acetaminophen 1,000 mg PO Q8 #100 tab 02/20/21 apixaban [Eliquis] 2.5 mg PO BID #42 tab 02/20/21 oxycodone 5 - 10 mg PO Q4H PRN PRN 7 Days #60 tab 02/20/21 Hospital Course Summary of Care Provided Hospital Course: Patient with 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 Patient underwent left total hip arthroplasty day of admission. Patient did receive pre-and postoperative antibiotics which were discontinued within 23 hours postoperatively. Patient did receive spinal anesthesia and postoperatively her pain was controlled with both IV and p.o. pain medication. Patient did receive 2 g of tranexamic acid. Her hemoglobin and hematocrit were monitored postoperatively as well as her vital signs and she did not require any blood transfusion. . Dressing will be changed daily beginning postop day #3 before shower will be removed and replaced after. Pt was started on Eliquis 2.5 mg twice daily postop day #1 for which will continue for 3 weeks post hospital discharge . Patient was seen by physical therapy was ambulating the halls well. patient will be discharged home with home health detention physical therapy will follow-up in the office in 2 weeks. No intrahospital complications. Patient is requesting to be discharged home today. Weight / BMI Weight Weight: 241 lb 13.553 oz Body Mass Index (BMI) 32.8 ABG / Lab / Microbiology Data Result Diagrams: 02/20/21 05:18 02/20/21 05:18 Laboratory: Laboratory Results - last 24 hr 02/19/21 12:43: POC Glucose 103 02/19/21 22:13: POC Glucose 234 H 02/20/21 05:18: WBC 13.8 H, RBC 3.16 L, Hgb 9.5 L, Hct 29.9 L, MCV 94.6 H, MCH 30.1, MCHC 31.8 L, RDW Std Deviation 54.5 H, RDW Coeff of Mounika 15.8 H, Plt Count 151, MPV 11.7 02/20/21 05:18: Sodium 139, Potassium 4.1, Chloride 107, Carbon Dioxide 25.0, Anion Gap 7, BUN 23 H, Creatinine 1.29, Estim Creat Clear Calc 50.96, Est GFR (MDRD) Af Amer 69, Est GFR (MDRD) Non-Af 57 L, BUN/Creatinine Ratio 17.8, Glucose 164 H, Calcium 8.6 Microbiology: Microbiology 02/06/21 13:32 Swab (Method) Nasal Screen MRSA/MSSA - Final Radiography Diagnostic Testing: Radiology Impression Hip X-Ray 02/19/21 12:00 IMPRESSION: Uncomplicated left hip arthroplasty Moderate/severe right hip osteoarthritis Electronically Signed: Tejas Kimball DO at 12:50 EDT Tel , Service support , D/C Instructions Discharge Diet: No restrictions Weight Bearing Status: Weight bearing as tolerated Call your doctor if you observe: Shortness of breath and Chest pain Additional Dressing/Incision Instructions: Do not shower 72hrs. Begin daily showering warm water antibacterial soap postop day #3( 72hrs Post-operatively) and then daily. Leave the dressing on for 72 hours postoperatively then may remove prior to first shower and change dressing daily after this until no drainage for 2 consecutive days then may leave open to air. Follow hip precautions that were reviewed in hospital. Wear compression stockings, may remove at night. Start physical therapy as directed in hospital. Follow prescriptions instructions do not take any other pain medication or differ dosing without consulting your physician. Do not take oral NSAIDs until blood thinner has been completed , then may begin the day after completion if needed . Call Dr. Montalvo's office with any concerns. Please Follow Up With: Selvin When: 2 weeks Meaningful Use Info Meaningful Use Diagnoses (Choose all that apply): None applicable Discharge Plan Admission Admit Date/Time: 02/19/21 06:52 Attending Provider: Garfield Montalvo Primary Care Provider: Franky Craig Chi Discharge Orders/Prescriptions Prescriptions: New acetaminophen 500 mg Tablet 1,000 mg PO Q8 Qty: 100 RF: 0 oxycodone 5 mg Tablet 5 - 10 mg PO Q4H PRN PRN (Reason: Pain Score 4-10) 7 Days Qty: 60 RF: 0 Eliquis 2.5 mg Tablet 2.5 mg PO BID Qty: 42 RF: 0 Continued omeprazole 10 mg capsule,delayed release(DR/EC) 10 mg PO DAILY RF: 0 ferrous sulfate 325 mg (65 mg iron) tablet 65 mg PO QHS RF: 0 hydroxychloroquine [Plaquenil] 200 mg tablet 200 mg PO BID RF: 0 gabapentin 100 mg capsule 100 mg PO QHS RF: 0 Soliqua 100/33 100 unit-33 mcg/mL insulin pen 15 unit subcut QAM RF: 0 finasteride [Proscar] 5 MG tablet 5 mg PO QHS RF: 0 amlodipine 10 MG tablet 10 mg PO QHS RF: 0 pioglitazone [Actos] 30 MG tablet 30 mg PO QHS RF: 0 Prednisone 10 MG tablet 1 tab PO DAILY PRN (Reason: RA) RF: 0 Vitamin D3 1,000 unit PO DAILY RF: 0 benazepril 5 mg tablet 10 mg PO QHS RF: 0 Discontinued tramadol 50 MG tablet 100 mg PO BID RF: 0 leflunomide 10 mg Tablet 20 mg PO DAILY RF: 0 Referrals / Follow Up: Franky Craig Chi, MD [Primary Care Provider] -
== END 2021-02-20 14:00 | disposition home or self-care (01) | DRG 470 ==
LOC: ACINP 06:58 → MS2 14:07
PROVIDERS: Anesthesiology; Admitting Provider Orthopaedic Surgery; PCP Family Medicine Geriatric Medicine; Referring Provider Orthopaedic Surgery; Visit Provider Orthopaedic Surgery
PROC: 8E0Y0CZ Robotic Assisted Procedure of Lower Extremity, Open Approach (ICD-10-PCS; CPT 27130; principal; 2021-02-19 09:35)
DX: M16.12 Unilateral primary osteoarthritis, left hip (principal); I12.9 Hypertensive chronic kidney disease with stage 1 through stage 4 chronic kidney disease, or unspecified chronic kidney disease; E11.22 Type 2 diabetes mellitus with diabetic chronic kidney disease; N18.31 Chronic kidney disease, stage 3a; D63.1 Anemia in chronic kidney disease; I48.91 Unspecified atrial fibrillation; E78.5 Hyperlipidemia, unspecified; K21.9 Gastro-esophageal reflux disease without esophagitis; M06.9 Rheumatoid arthritis, unspecified; M48.061 Spinal stenosis, lumbar region without neurogenic claudication; E66.9 Obesity, unspecified; Z68.32 Body mass index [BMI] 32.0-32.9, adult; Z79.4 Long term (current) use of insulin; Z79.899 Other long term (current) drug therapy; Z87.891 Personal history of nicotine dependence
CPT/HCPCS: 36415; 73502; 80048; 82962; 82985; 83036; 83735; 85027; 85730; 86850; 86900; 86901; 87081; 88305; 88307; 88311; 97110; 97116; 97162; 97166; 97530; 99251; C1713; C1776; J7120; G0463; J2405

== ENCOUNTER → 2021-03-13 10:51 | Outpatient (CLI) | payer MEDICARE, SELFPAY ==
[2020-01-31 10:24] VITALS: BMI 31.1
[2021-03-13 12:30] LABS: Protein, Urine (Random) 25.2 mg/dL (<11.9); Protein:Creat Ratio 358 mg/g CRE (0-200)
[2021-03-13 13:02] LABS: Albumin, Serum 3.3 g/dL (3.2-5.0); BUN 30 mg/dL (7-18); BUN/Creat Ratio 23.3 RATIO (10-20); Calcium,Total 8.7 mg/dL (8.5-10.1); Chloride 106 mmol/L (98-107); Creatinine, Serum 1.29 mg/dL (0.70-1.30); EST Glomerular Filtration Rate 57 mL/min (>60); Est Glom Filt Rate - Afr Amer 69 mL/min (>60); Glucose 170 mg/dL (74-106); Sodium Level 137 mmol/L (136-145)
== END ==
PROVIDERS: PCP Family Medicine Geriatric Medicine; Visit Provider Internal Medicine Nephrology
DX: E11.22 Type 2 diabetes mellitus with diabetic chronic kidney disease (principal); N18.31 Chronic kidney disease, stage 3a
CPT/HCPCS: 36415; 80069; 82570; 84156

== ENCOUNTER 2021-03-27 09:00 | Outpatient (RCR) | payer MEDICARE, SELFPAY ==
--- NOTE | 2021-02-21 10:53 | HP.PTEVAL_ITS ---
Patient's Visit Information CELIA BARNARD is a 80 year old M referred to Physical Therapy by Dr. Garfield Montalvo DO with a diagnosis of s/p L DAWSON 06/22/20. Date of Evaluation: 02/21/21 Physical Therapist: Tejas Thacker, DPT, OCS, CSCS - Visit Plan Frequency: 3x /Week Duration: 4-6 Weeks Plan: 3x/week for 3-6 weeks for. 1. rollout and stretch quads and hip flexor into ext. 2. strengthening of L hip within precautions of posterior DAWSON approach. 3. gait training/stair. 4. ice. Monnitor CBD oil study questions DPWR - Subjective L DAWSON posterior approach 02/19/21. Knows his precaution of not crossing legs or bending FW or pivotting. No restirctions on weight bearing and it does not hurt to walk on it. Usin walker currently and used cane prior to surgery. pain has been to 9 front leg when [id number] to move it , it is comfortable at rest. Sleeping in chair as it is hard to lie flat and has been for a while. leg was lenghtened during surgery. Lives with in tri level, 5 steps to second level and doing them Ok with railing and cane. Using R leg on steps. Knows up with the good and down with the bad. Basic ADLs dressing I. Bathroom I. has walk in shower but will not do that for a little bit. Not employed. Hobbies include flower beds and yard work adn taking care of horse and 2.5 acres. Other joints are pretty healthy. - Pain L ant hip Pain Intensity (Out of 10): 0 Pain Intensity Range: 0, 9 - Objective Walks slowly and hunched over with walker into PT 200 feet mod I. Trasnfers to chair and bed I but requires VC to keep knees apart and pick L foot off floor to sit in lower chair. Reviewed precautions multiplke times today and handout given for post approach precautions. I with bed and chair mobility though. Incision is dressed and and dry, mild edematous fluid around the incision. Knee and ankle aROM WFL in both LE and strength L knee 4- adn R 4+ HS and quad hesitant to contract L but can do it. Ankle strength 5/5 B. Hard to lie flat with L leg out as it causes pain but can barely get to neutral ext with some work and pain. ext 0 L, flexion 90, abduction 8 and hesitant all PROM, hesitant to move on his own. R hip 100 flexion 18 abduction, 5 extension. reflexes 1/3 patella and achillles. sensation WNL to gross light touch in LE. Strength hip abd/ext, flexion L, 3-, R hip is 4. Steps one step appropriately using R to ascend and L to descend adn using rail and cane on one side. Strength L flexion hip 21# and ext 46 #. TUG 33 - Balance/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 Scores Lower Extremity Functional Score: 25 TUG Test Time Seconds: 33 WOMAC Total Score: 58 WOMAC Percentatge: 39.5900 - Goals Goal 1:: 5 degree ext to 90 flexion without pain or hesitation to faciltiate mobility Goal Time Frame: 4-6 Weeks Goal 2:: Walk without AD mod I without increased pain safely Goal Time Frame: 4-6 Weeks Goal 3:: Steps reciprocal with one rail Goal Time Frame: 4-6 Weeks Goal 4:: Pt able to participate in outdoor barn related activities without pain or problems Goal Time Frame: 4-6 Weeks Goal 5:: FGA 25/30 FGA Goal Time Frame: 4-6 Weeks - Rehabilitation Potential Physical Therapy Diagnosis: L hip stiffness and weakness post DAWSON Rehabilitation Potential: Good - Anticipated Interventions Patient/Client Instruction: Educate patient on: Condition, Plan of Care For the Purpose of:: To decrease pain, To increase ROM, To improve muscle performance and motor function Therapeutic Exercise to Include: Strength training, Postural training, Flexibilty training, Gait and locomotor training, Passive ROM, Active ROM For the Purpose of:: To decrease pain, To increase ROM, To improve muscle performance and motor function, To increase tolerance to activity/condition/position, To improve ability of physical actions for home/community/work/leisure, To improve gait and locomotor functions Manual Therapy Techniques to Include: Passive ROM, Soft tissue mobilization For the Purpose of:: To decrease pain, To increase ROM Cryotherapy (ice pack, ice massage): Yes For the Purpose of:: To decrease pain Thank you for the opportunity to evaluate your patient. For Medicare and Medicare HMO plans, please review the plan of care and approve it. It will need to be FAXED BACK to us at [phone] for Medicare purposes. For Medicare only, by signing this I certify the plan of care. Please let me know if there are questions or concerns regarding this plan of care. Physician Signature: Date:
--- NOTE | 2021-03-27 09:51 | HP.PTDCSUM ---
It has been my pleasure to treat CELIA BARNARD referred by Dr. Garfield Montalvo DO, with the diagnosis of s/p L post DAWSON 02/19/21 for a total of 10 visit(s). Discharge Date: 03/27/21 Please see the following information for a summary of their discharge status. Subjective: To doctor on Thursday. No pain in a while. Sleep is good. Activities at homeare pretty normal outside of bending to floor(precautions. ). Doing exercises at home daily at sink and step up and ROM. Has cane but does not use it. L ant hip Pain Intensity (Out of 10): 0 % Improvement: 100 Objective/Function: 51# ext. 34 # flexion. PROM flexion 95(precaution. PROM ext 10. Walking well and I although still hunches until cued. Goal 1:: 5 degree ext to 90 flexion without pain or hesitation to faciltiate mobility Goal Progress: Goal Met Goal 2:: Walk without AD mod I without increased pain safely Goal Progress: Goal Met Goal 3:: Steps reciprocal with one rail Goal 4:: Pt able to participate in outdoor barn related activities without pain or problems Goal Progress: Goal Met Goal 5:: FGA FGA Goal Progress: Goal Met Plan: d/c to [facility] If there are questions or concerns regarding this patient's physical therapy, please feel free to call me at [phone]. Thank you for the referral of this patient. Sincerely, Tejas Thacker, DPT, OCS, CSCS Balance/Gait/Functional tests - Balance/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 Scores Functional Gait Assessment Score: 26 % Disability: 13.3400 Lower Extremity Functional Score: 63 TUG Test Time Seconds: 15 Tug Test: <20 sec.=mostly independent WOMAC Total Score: 4 WOMAC Percentage: 95.8400
== END 2021-03-27 12:28 | disposition home or self-care (01) ==
LOC: PT 09:00
PROVIDERS: PCP Family Medicine Geriatric Medicine; Referring Provider Orthopaedic Surgery; Visit Provider Orthopaedic Surgery
DX: Z96.642 Presence of left artificial hip joint (principal)
CPT/HCPCS: 97110; 97161; 97164; 97530

== ENCOUNTER → 2021-04-08 07:10 | Outpatient (CLI) | payer MEDICARE, SELFPAY ==
--- NOTE | 2021-04-08 09:24 | NEURO ---
NCS and/or EMG Patient Report Ordering Doctor: Suellen Peralta DATE OF SERVICE: 04/08/21 Indication: Pain in both hands intermittently. Associated with numbness on bad days. Symptoms are worst in the morning upon waking and gradually improve through the morning. In the past his had pain has improved when taking steroids for other indications. Evaluate for entrapment neuropathy. Findings: Nerve conduction studies were performed in the right and left upper extremities. The right median motor study recording the abductor pollicis brevis showed a reduced amplitude, markedly prolonged distal latency and slowed conduction velocity. The right ulnar motor study recording the abductor digiti minimi showed a normal amplitude, normal distal latency and normal conduction velocity. Borderline focal slowing was present across the elbow. A Bjorn Solange anastomosis, a normal anatomical variant, was present in the forearm. Right median-ulnar lumbrical / interosseous motor latencies could not be compared due to an absent lumbrical response. The right median sensory response recording digit two showed an absent response. The right ulnar sensory response recording digit five showed a reduced amplitude, normal latency and normal conduction velocity. The right radial sensory response recording over the extensor snuff box showed a normal amplitude, latency and conduction velocity. The left median motor study recording the abductor pollicis brevis showed a normal amplitude, prolonged distal latency and borderline conduction velocity. The left ulnar motor study recording the abductor digiti minimi showed a normal amplitude, normal distal latency and normal conduction velocity. Focal slowing was present across the elbow. The left median sensory response recording digit two showed a reduced amplitude, prolonged latency and markedly slowed conduction velocity. The left ulnar sensory response recording digit five showed a borderline amplitude, normal latency and normal conduction velocity. The left radial sensory response recording over the extensor snuff box showed a normal amplitude, latency and conduction velocity. Left median-ulnar lumbrical / interosseous motor latencies showed a prolonged median latency compared to the ulnar. Needle EMG of the right upper extremity muscles was performed. Active denervation was seen in the abductor pollicis brevis muscle. Motor units in the abductor pollicis brevis were few in number and too distant to analyze. Motor units in the the first dorsal interosseus were large amplitude and long duration. All other motor unit morphology, activation and recruitment patterns were normal. Needle EMG of the left upper extremity muscles was performed. No denervation was seen in any muscle. Motor units in the the first dorsal interosseus and abductor pollicis brevis were large amplitude and long duration with reduced recruitment. All other motor unit morphology, activation and recruitment patterns were normal. EMG examination of the paraspinal muscles was omitted due to the lack of radicular symptoms and absence of myotomal abnormalities in the upper extremity examination. Impression: This is an abnormal and complex study. There is electrophysiologic evidence consistent with: 1.) Left median neuropathy across the wrist. The pathology is predominantly demyelinating with some evidence of chronic axonal injury. These findings would be compatible with the clinical diagnosis of carpal tunnel syndrome. 2.) Severe, non-localizable right median neuropathy with active denervation of the thenar muscles. The abnormal median motor nerve conduction and lack of involvement of the flexor carpi radialis on needle EMG would implicate a lesion at the wrist. However, a more proximal lesion with preferential fascicular involvement cannot be excluded. Ultrasound of the right wrist could be considered for further localization and characterization of the pathology. 3. Chronic, bilateral ulnar neuropathies across the elbow. There is no active denervation to suggest ongoing axonal injury. Jabari Singh D.O. Multi Select Codes Neurology Neurology Interp Codes: 60383-18 Musc test done w/n test comp (interp) (Qty: 2) and 37714-41 Nrv cndj test 13/> studies (interp)
== END ==
PROVIDERS: PCP Family Medicine Geriatric Medicine; Referring Provider Internal Medicine Rheumatology; Visit Provider Internal Medicine Rheumatology
DX: G56.03 Carpal tunnel syndrome, bilateral upper limbs (principal); M06.4 Inflammatory polyarthropathy; Z79.899 Other long term (current) drug therapy; K21.9 Gastro-esophageal reflux disease without esophagitis; I10 Essential (primary) hypertension; E78.5 Hyperlipidemia, unspecified; E11.9 Type 2 diabetes mellitus without complications; N40.1 Benign prostatic hyperplasia with lower urinary tract symptoms
CPT/HCPCS: 95886; 95913

== ENCOUNTER → 2021-04-30 12:12 | Outpatient (CLI) | payer MEDICARE, SELFPAY ==
[2021-04-30 14:59] LABS: Absolute Lymphocyte Count 2.17 X10^3/uL (0.83-4.51); Absolute Neutrophil Count 5.9 X10^3/uL (2.0-7.7); Basophil# 0.14 X10^3/uL; Basophil% 1.4 % (0-1); Eosinophil# 0.23 X10^3/uL; Eosinophils% 2.4 % (0-5); Hematocrit 31.4 % (40-54); Hemoglobin 10.3 g/dL (13.0-16.5); Lymphocyte # 2.17 X10^3/ul (0.83-4.51); Lymphocyte % 22.4 % (19-41); Mean Corp Hgb Conc 32.8 g/dL (32-36); Mean Corpuscular Hgb 29.9 pg (27.0-32.0); Mean Platelet Vol. 11.6 fl (6.2-12.0); Monocyte# 0.98 X10^3/uL; Monocyte% 10.1 % (0-10); NRBC Flagged by Analyzer 0 % (0-5); Neutrophil # 5.94 X10^3/uL (2.7-7.7); Neutrophil % 61.5 % (47-70); Platelet Count 204 K/mm3 (150-450); RBC Distribution Width CV 15.8 % (11.6-14.6); Red Blood Count 3.45 M/mm3 (4.6-6.2); White Blood Count 9.7 K/mm3 (4.4-11.0)
[2021-04-30 15:28] LABS: ALB/GLOB Ratio 0.8 RATIO (0.9-2.4); AST(SGOT) 17 U/L (15-37); Alanine Aminotransfer ALT/SGPT 24 U/L (16-61); Albumin, Serum 3.3 g/dL (3.2-5.0); Alkaline Phosphatase 94 U/L (45-117); Anion Gap 10 (5-15); BUN 27 mg/dL (7-18); BUN/Creat Ratio 23.5 RATIO (10-20); Calcium,Total 8.7 mg/dL (8.5-10.1); Chloride 105 mmol/L (98-107); Creatinine, Serum 1.15 mg/dL (0.70-1.30); EST Glomerular Filtration Rate 65 mL/min (>60); Est Glom Filt Rate - Afr Amer 79 mL/min (>60); Globulin 4.1 g/dL (2.2-4.2); Glucose 113 mg/dL (74-106); Potassium 3.8 mmol/L (3.5-5.1); Protein, Total 7.4 g/dL (6.4-8.2); Sodium Level 138 mmol/L (136-145)
== END ==
PROVIDERS: PCP Family Medicine Geriatric Medicine; Referring Provider Internal Medicine Rheumatology; Visit Provider Internal Medicine Rheumatology
DX: M06.4 Inflammatory polyarthropathy (principal); G56.03 Carpal tunnel syndrome, bilateral upper limbs; K21.9 Gastro-esophageal reflux disease without esophagitis; I10 Essential (primary) hypertension; E11.9 Type 2 diabetes mellitus without complications; E78.5 Hyperlipidemia, unspecified; N40.1 Benign prostatic hyperplasia with lower urinary tract symptoms; Z79.899 Other long term (current) drug therapy
CPT/HCPCS: 36415; 80053; 85025

== ENCOUNTER 2021-06-24 10:02 | Outpatient (CLI) | payer MEDICARE, SELFPAY ==
[2021-06-24 12:18] LABS: Absolute Lymphocyte Count 1.88 X10^3/uL (0.83-4.51); Absolute Neutrophil Count 5.9 X10^3/uL (2.0-7.7); Basophil# 0.07 X10^3/uL; Basophil% 0.8 % (0-1); Eosinophil# 0.07 X10^3/uL; Eosinophils% 0.8 % (0-5); Hematocrit 36.7 % (40-54); Hemoglobin 12.5 g/dL (13.0-16.5); Lymphocyte # 1.88 X10^3/ul (0.83-4.51); Lymphocyte % 21.7 % (19-41); Mean Corp Hgb Conc 34.1 g/dL (32-36); Mean Corpuscular Hgb 30.8 pg (27.0-32.0); Mean Corpuscular Volume 90.4 fL (80-94); Mean Platelet Vol. 12.1 fl (6.2-12.0); Monocyte# 0.72 X10^3/uL; Monocyte% 8.3 % (0-10); NRBC Flagged by Analyzer 0 % (0-5); Neutrophil # 5.86 X10^3/uL (2.7-7.7); Neutrophil % 67.6 % (47-70); Platelet Count 206 K/mm3 (150-450); RBC Distribution Width CV 15.2 % (11.6-14.6); RBC Distribution Width SD 50.3 fl (35.1-43.9); Red Blood Count 4.06 M/mm3 (4.6-6.2); White Blood Count 8.7 K/mm3 (4.4-11.0)
[2021-06-24 12:50] LABS: Vitamin D,25 Hydroxy 25.4 ng/mL
[2021-06-24 13:14] LABS: BUN 26 mg/dL (7-18); Creatinine, Serum 1.41 mg/dL (0.70-1.30); EST Glomerular Filtration Rate 51 mL/min (>60); Glucose 138 mg/dL (74-106)
[2021-06-24 13:15] LABS: ALB/GLOB Ratio 1.1 RATIO (0.9-2.4); AST(SGOT) 20 U/L (15-37); Alanine Aminotransfer ALT/SGPT 23 U/L (16-61); Albumin, Serum 4.1 g/dL (3.2-5.0); Alkaline Phosphatase 97 U/L (45-117); Anion Gap 8 (5-15); BUN/Creat Ratio 18.4 RATIO (10-20); Calcium,Total 9.4 mg/dL (8.5-10.1); Chloride 103 mmol/L (98-107); Est Glom Filt Rate - Afr Amer 62 mL/min (>60); Globulin 3.9 g/dL (2.2-4.2); Potassium 4.3 mmol/L (3.5-5.1); Sodium Level 136 mmol/L (136-145); Thyroid Stim Hormone (TSH) 0.82 uIU/mL (0.358-3.74)
== END 2021-06-24 23:59 | disposition home or self-care (01) ==
PROVIDERS: PCP Family Medicine Geriatric Medicine; Visit Provider Family Medicine Geriatric Medicine
DX: E11.9 Type 2 diabetes mellitus without complications (principal); E23.6 Other disorders of pituitary gland; E55.9 Vitamin D deficiency, unspecified; I10 Essential (primary) hypertension
CPT/HCPCS: 36415; 80053; 82306; 84403; 84443; 85025

== ENCOUNTER → 2021-10-01 | Outpatient (CLI) | payer MEDICARE, SELFPAY ==
[2021-10-01 12:32] LABS: Absolute Lymphocyte Count 2.13 X10^3/uL (0.83-4.51); Absolute Neutrophil Count 4.9 X10^3/uL (2.0-7.7); Basophil# 0.12 X10^3/uL; Basophil% 1.4 % (0-1); Eosinophil# 0.19 X10^3/uL; Eosinophils% 2.2 % (0-5); Hematocrit 32.6 % (40-54); Hemoglobin 10.7 g/dL (13.0-16.5); Lymphocyte # 2.13 X10^3/ul (0.83-4.51); Mean Corp Hgb Conc 32.8 g/dL (32-36); Mean Corpuscular Hgb 30.4 pg (27.0-32.0); Mean Corpuscular Volume 92.6 fL (80-94); Monocyte# 0.98 X10^3/uL; Monocyte% 11.5 % (0-10); NRBC Flagged by Analyzer 0 % (0-5); Neutrophil # 4.93 X10^3/uL (2.7-7.7); Neutrophil % 57.9 % (47-70); Platelet Count 190 K/mm3 (150-450); RBC Distribution Width CV 15.9 % (11.6-14.6); RBC Distribution Width SD 53.6 fl (35.1-43.9); Red Blood Count 3.52 M/mm3 (4.6-6.2); White Blood Count 8.5 K/mm3 (4.4-11.0)
[2021-10-01 12:40] LABS: AST(SGOT) 19 U/L (15-37); Alanine Aminotransfer ALT/SGPT 22 U/L (16-61); Albumin, Serum 3.5 g/dL (3.2-5.0); Alkaline Phosphatase 92 U/L (45-117); Anion Gap 7 (5-15); BUN 36 mg/dL (7-18); BUN/Creat Ratio 26.3 RATIO (10-20); Calcium,Total 8.4 mg/dL (8.5-10.1); Chloride 110 mmol/L (98-107); Creatinine, Serum 1.37 mg/dL (0.70-1.30); EST Glomerular Filtration Rate 53 mL/min (>60); Est Glom Filt Rate - Afr Amer 64 mL/min (>60); Globulin 3.5 g/dL (2.2-4.2); Glucose 159 mg/dL (74-106); Potassium 4.1 mmol/L (3.5-5.1); Sodium Level 140 mmol/L (136-145)
== END | disposition home or self-care (01) ==
LOC: MTLAB 09:59
PROVIDERS: PCP Family Medicine Geriatric Medicine; Referring Provider Internal Medicine Rheumatology; Visit Provider Internal Medicine Rheumatology
DX: M06.4 Inflammatory polyarthropathy (principal); E11.9 Type 2 diabetes mellitus without complications; G56.03 Carpal tunnel syndrome, bilateral upper limbs; K21.9 Gastro-esophageal reflux disease without esophagitis; I10 Essential (primary) hypertension; E78.5 Hyperlipidemia, unspecified; Z79.899 Other long term (current) drug therapy
CPT/HCPCS: 36415; 80053; 85025

== ENCOUNTER → 2021-12-05 | Outpatient (CLI) | payer MEDICARE, SELFPAY ==
[2021-12-05 12:18] LABS: Absolute Lymphocyte Count 1.68 X10^3/uL (0.83-4.51); Absolute Neutrophil Count 4.7 X10^3/uL (2.0-7.7); Basophil% 1.3 % (0-1); Eosinophil# 0.19 X10^3/uL; Eosinophils% 2.5 % (0-5); Hematocrit 35.2 % (40-54); Hemoglobin 11.4 g/dL (13.0-16.5); Lymphocyte # 1.68 X10^3/ul (0.83-4.51); Lymphocyte % 22.2 % (19-41); Mean Corp Hgb Conc 32.4 g/dL (32-36); Mean Corpuscular Hgb 30.1 pg (27.0-32.0); Mean Corpuscular Volume 92.9 fL (80-94); Mean Platelet Vol. 11.7 fl (6.2-12.0); Monocyte# 0.87 X10^3/uL; Monocyte% 11.5 % (0-10); NRBC Flagged by Analyzer 0 % (0-5); Neutrophil # 4.69 X10^3/uL (2.7-7.7); Neutrophil % 62.1 % (47-70); Platelet Count 181 K/mm3 (150-450); RBC Distribution Width CV 15.5 % (11.6-14.6); RBC Distribution Width SD 52.7 fl (35.1-43.9); Red Blood Count 3.79 M/mm3 (4.6-6.2); White Blood Count 7.6 K/mm3 (4.4-11.0)
[2021-12-05 12:57] LABS: AST(SGOT) 32 U/L (15-37); Alanine Aminotransfer ALT/SGPT 30 U/L (16-61); Albumin, Serum 3.6 g/dL (3.2-5.0); Alkaline Phosphatase 74 U/L (45-117); Anion Gap 8 (5-15); BUN 30 mg/dL (7-18); BUN/Creat Ratio 21.9 RATIO (10-20); Calcium,Total 8.5 mg/dL (8.5-10.1); Chloride 107 mmol/L (98-107); Creatinine, Serum 1.37 mg/dL (0.70-1.30); EST Glomerular Filtration Rate 53 mL/min (>60); Est Glom Filt Rate - Afr Amer 64 mL/min (>60); Globulin 3.7 g/dL (2.2-4.2); Glucose 92 mg/dL (74-106); Potassium 3.5 mmol/L (3.5-5.1); Protein, Total 7.3 g/dL (6.4-8.2); Sodium Level 138 mmol/L (136-145)
== END | disposition home or self-care (01) ==
LOC: MTLAB 10:47
PROVIDERS: PCP Family Medicine Geriatric Medicine; Referring Provider Internal Medicine Rheumatology; Visit Provider Internal Medicine Rheumatology
DX: M06.4 Inflammatory polyarthropathy (principal); E11.9 Type 2 diabetes mellitus without complications; G56.03 Carpal tunnel syndrome, bilateral upper limbs; K21.9 Gastro-esophageal reflux disease without esophagitis; I10 Essential (primary) hypertension; E78.5 Hyperlipidemia, unspecified; N40.1 Benign prostatic hyperplasia with lower urinary tract symptoms; Z79.899 Other long term (current) drug therapy
CPT/HCPCS: 36415; 80053; 85025

== ENCOUNTER 2021-12-10 05:59 | Day surgery (SDC) | payer MEDICARE, SELFPAY ==
[2021-12-10 06:44] VITALS: BP 143/75; PULSE 57; RESP 16; TEMP 36.8; O2SAT 100; BMI 33.9
[2021-12-10] MEDS: Lactated Ringers 1,000 ML 15 ML IV (06:51)
--- NOTE | 2021-12-10 07:11 | PCM.HP.BLA ---
History and Physical Date of Admission: 12/10/21 [facility] [place] [address] OFFICE VISIT Date of Service:? 10/18/21 MR#: [id number] Acct: [id number] Name:CELIA LEIVA Rep #: [id number] : 1940 ? ? Provider: Dr. Garfield Montalvo DO Age/Sex:? 81/M ? ? [place] [facility] [place] Status: Signed with Addenda ADDENDUM by Lara Esparza on 10/18/21 at 1209 Office Procedure Documentation entered by Lara Esparza? 10/18/21 12:09: Ortho Injections Injections Yes Carpal Tunnel Injection Left Details: Obtained consent for injection.? Under sterile conditions, injected the patient's left carpal tunnel with 0.5cc Bupivacaine and 0.5cc Kenalog.? The patient tolerated the injection well without any noted complication.? Patient should call our office if redness develops, pain worsens or if they have any concerns. Office Meds Kenalog Performing Provider: Garfield Montalvo DO Administered by: Garfield Montalvo DO on 10/18/21 12:06 Dose Route Admin Location Lot Number Expiration Date NDC Choker [place]er 20 mg intra-articular left wrist [id number] 09/30/22 3419-4576-24 [facility] 10/18/21 1209 <Electronically signed by Lara Esparza > Date Lara Esparza? cc: ? ~* Signed Intake Intake Visit Reasons:?BILAT HANDS Allergies No Known Allergies Allergy (Verified 10/18/21 10:12) Medications finasteride 5 mg tablet (Proscar) 5 mg PO QHS 08/22/13 [History Confirmed 10/18/21] hydroxychloroquine 200 mg tablet (Plaquenil) 200 mg PO BID 02/25/19 [History Confirmed 10/18/21] omeprazole 10 mg capsule,delayed release 10 mg PO DAILY pre op 02/25/19 [History Confirmed 10/18/21] ferrous sulfate 325 mg (65 mg iron) tablet 65 mg PO QHS 02/28/19 [History Confirmed 10/18/21] amlodipine 10 mg tablet 10 mg PO QHS 01/02/20 [History Confirmed 10/18/21] pioglitazone 30 mg tablet (Actos) 30 mg PO QHS 01/02/20 [History Confirmed 10/18/21] Vitamin D3 1,000 unit PO DAILY 01/03/20 [History Confirmed 10/18/21] benazepril 5 mg tablet 10 mg PO QHS 10/25/20 [History Confirmed 10/18/21] insulin glargine 100 unit-lixisenatide 33 mcg/mL subcutaneous pen (Soliqua 100/33) 15 unit subcut QAM 01/03/21 [History Confirmed 10/18/21] acetaminophen 500 mg tablet 1,000 mg PO Q8 #100 tabs 02/20/21 [Rx Confirmed 10/18/21] ascorbic acid (vitamin C) 500 mg tablet 500 mg PO DAILY 07/09/21 [History Confirmed 10/18/21] prednisone 10 mg tablet 10 mg PO DAILY PRN 07/09/21 [History Confirmed 10/18/21] leflunomide 10 mg tablet 10 mg PO DAILY 10/18/21 [History Confirmed 10/18/21] [facility] Medical History?(Updated 10/18/21 @ 11:59 by Lara Esparza) Ambulates with cane Anemia Anemia Arthritis BPH (benign prostatic hyperplasia) Bruising Cardiology follow-up encounter Chronic kidney disease (CKD) Chronic kidney disease, stage III (moderate) Diabetes Discoloration of skin Easy bruising Essential hypertension Former smoker Gastric reflux GERD (gastroesophageal reflux disease) History of atrial fibrillation History of echocardiogram History of pain when walking History of steroid therapy History of stress test Hyperlipidemia Hypertension Injury of head and neck Insulin dependent diabetes mellitus Loss of hearing New onset atrial fibrillation (02/2019) Obesity Osteoarthritis Restless legs Rheumatoid arthritis Sciatica Subdural hematoma (2013) Type 2 diabetes mellitus without complication Vitamin B 12 deficiency Wears glasses Wears hearing aid Surgical History?(Updated 07/09/21 @ 13:25 by Sara Echavarria) History of surgery on arm History of total left hip replacement History of vocal cord polypectomy Family History? Father CAD (coronary artery disease) Parkinson diseaseMother Cancer Social History? Smoking Status:? Former smoker alcohol intake:? never what type of physical activity do you participate in:? walking frequency:? daily HPI BILAT HANDS Details: Parts of this documentation were recorded by a scribe, this documentation accurately reflects the service provided and the decisions made by me, Dr. Garfield Montalvo, DO 10/18/21 0759. CELIA BARNARD is a 81 year old M here today for pain in B/L hands. Pt states he has been having this pain for 2 years but worsened over the last 6 months. Pt states has pain in his wrists and hands at night time. Pt also states the right is worse than the left. Pt states if he takes a Prednisone at night time before bed it helps. Pt states he also has rheumatoid arthritis and was referred by Dr. Peralta. Pt was on Methotrexate and didn't have any issues while on that medication but he is unable to take it anymore due to his kidney function. Pt states he has tried braces but they were ineffective. Pt states he takes the Prednisone for 3 days then off for 4-[address] Peralta does not want him to continue taking it frequently. Pt had a EMG in April of 2021. Pt does hav numbness and tingling. Pt states he has sharp pains that radiate up his arm occasionally. Ortho Exam General General: Yes no acute distress Neurologic: Yes alert and Yes oriented x3 Psychologic: Yes reasonable and appropriate Right Wrist/Hand Skin/Wound: No Swelling, No Ecchymosis and Yes capillary refill normal WRIST: pain is worse on the radial side of wrist. suspected mild atrophy of thenar musculature. He has resting numbness and tingling so provocative tests at the wrist and elbow do not provide much value here they do not make anything worse however Left Wrist/Hand Skin/Wound: No Swelling, No Ecchymosis and No erythema Left Wrist: Yes Durken's Test and Yes Phalen's; No Thenar Atrophy and No Hypothenar Atrophy Left Elbow Skin/Wound: No eccymosis, No erythema and No Swelling Test: No Ulnar Nerve Subluxation and Yes Tinel's ELBOW: There is increase symptoms with hyperflexion and direct compression of the left elbow Supplemental Info 04/08/2021 EMG nerve conduction study bilateral upper extremity:1.) Left median neuropathy across the wrist. The pathology is predominantly demyelinating with some evidence of chronic axonal injury. These findings would be compatible with the clinical diagnosis of carpal tunnel syndrome. 2.) Severe, non-localizable right median neuropathy with active denervation of the thenar muscles. The abnormal median motor nerve conduction and lack of involvement of the flexor carpi radialis on needle EMG would implicate a lesion at the wrist. However, a more proximal lesion with preferential fascicular involvement cannot be excluded. Ultrasound of the right wrist could be considered for further localization and characterization of the pathology. 3. Chronic, bilateral ulnar neuropathies across the elbow. There is no active denervation to suggest ongoing axonal injury. Coding Level of Care Code Off vis,est,level 4 Diagnoses Carpal tunnel syndrome, bilateral? G56.03 Cubital tunnel syndrome, bilateral? G56.23 Assessment and Plan Assessment and Plan (1) Carpal tunnel syndrome, bilateral: ?Status:?Acute (2) Cubital tunnel syndrome, bilateral: ?Status:?Acute ? ? ? Orders: Orders Kenalog Injection Today G56.03 - Carpal tunnel syndrome, bilateral upper limbs, G56.23 - Lesion of ulnar nerve, bilateral upper limbs ? Kenalog Injection Today G56.03 - Carpal tunnel syndrome, bilateral upper limbs ? Hand Min 3 Views Today R52 - Pain, unspecified ? Hand Min 3 Views Today R52 - Pain, unspecified ? Medications: New Kenalog (triamcinolone acetonide) 20 mg (0.5 mL) intra-articular ONCE 0.5 mL 0RF NS G56.03 - Carpal tunnel syndrome, bilateral upper limbs, G56.23 - Lesion of ulnar nerve, bilateral upper limbs ? Kenalog (triamcinolone acetonide) 20 mg (0.5 mL) intra-articular ONCE 0.5 mL 0RF NS G56.03 - Carpal tunnel syndrome, bilateral upper limbs ? Plan Details Additional Comments: Patient does have severe carpal tunnel bilaterally worse on the right with denervation as well as bilateral cubital tunnel.? He also has rheumatoid arthritis for which symptoms worsened particularly in his wrists and hands after discontinuing methotrexate secondary to kidney insufficiency.? Counseled him on options for carpal tunnel cubital tunnel particularly in regards to surgery he likely has overlapping pain from his rheumatoid as some of the pain locations would not be consistent with carpal tunnel.? However his EMGs are very severe particularly on the right.? We discussed Treatment options include CTR and right cubital tunnel release, steroid injections, or elbow bracing.? Pt wishes to proceed with right CTR and cubital tunnel decompression versus transposition and left wrist and elbow injections today. Reviewed the pre-operative plans with the patient. Risks and benefits of the procedure were fully explained, including but not limited to infection, neurovascular injury, continued pain, arthritis, stiffness, need for further surgery continued or worsening symptoms, re-injury, DVT, PE, general risks of anesthesia, and loss of limb or life. The patient understands all the risks and does wish to proceed with written consent. All questions answered. Patient in agreement of plan. I have re-examined the patient. There are no clinical changes since date of exam
[2021-12-10 07:30] LABS: Bedside Glucose 124 mg/dL (74-106)
[2021-12-10] MEDS: Cefazolin 2 GM in 0.9% Normal Saline 100 ML IV (07:40)
[2021-12-10] MEDS: Lidocaine 1% /Epi 1:100 (20ml) 20 ML Vial (07:58)
--- NOTE | 2021-12-10 08:51 | OP.PCM_ITS ---
Operative Report Date of Procedure: 12/10/21 Preoperative diagnosis; right carpal tunnel and right cubital tunnel Postoperative diagnosis; same Procedure: 1. Right open carpal tunnel release 2. Right ulnar nerve decompression Band Sawyer Stanley Sampson. My physician assistant housekeeping manager was a vital part of this case. He was important in appropriate retraction during the case, and protection of soft tissues during procedure. His intimate knowledge of the case and my steps aided in safe and expedient completion of the procedure as well as appropriate position of the extremity during the case. He was also vital in assisting with closure under my direct supervision. Band Sawyer Stanley Sampson. My physician assistant housekeeping manager was a vital part of this case. He was important in appropriate retraction during the case, and protection of soft tissues during procedure. His intimate knowledge of the case and my steps aided in safe and expedient completion of the procedure as well as appropriate position of the extremity during the case. He was also vital in assisting with closure under my direct supervision. Anesthesia: Local with MAC Tourniquet time; 49 minutes 250 mm Hg Complications: None Indication for procedure; 81-year-old male with long-standing symptoms consistent with carpal tunnel and cubital tunnel syndrome the patient did have electrodiagnostic evidence of this and has failed conservative treatment. Risks benefits and alternatives were reviewed including risks of bleeding infection nerve artery tissue damage need for further surgery and continued pain and symptoms, hypersensitivity to scar and Pillar pain. Procedure: cubital tunnel : the patient was met in the preoperative holding area the operative extremity was identified by both patient and physician and was marked the patient was met by anesthesia and brought back to the operating room and transferred to the operating table in the supine position. Aanesthesia was started. A well-padded tourniquet was placed on the operative upper extremity. The patient was prepped and draped in the usual sterile fashion. A timeout was called to ensure the proper patient procedure and extremity were being contemplated. An Esmarch was used to exsanguinate the extremity. The tourniquet was inflated to 250 mmHg. First we turned our attention to the elbow made a curvilinear skin incision over the path of the ulnar nerve dissection was carried down as full-thickness flaps electrocautery was used until the fascia over the ulnar nerve was reached the nerve was then identified proximally and Vesseloops were placed around it and careful dissection to free it from the surrounding soft tissue was performed until its distal extent splitting of the 2 heads of the FCU nerve was mobilized and proximally up to the medial intermuscular septum and there was no further constrictions proximally. The release was carried out on the dorsal side of the tunnel and when the elbow was brought through range of motion there was no subluxation appreciated the wound was thoroughly irrigated and closed with 3-0 Vicryl subcutaneous stitches and 4-0 nylon horizontal mattress stitches. Xeroform. Carpal tunnel :A midline incision was made with a 15 blade scalpel between the thenar and hypothenar eminence. This was carried down through the skin and subcutaneous tissue. Sourav retractors were then used, a deep blade scalpel was used to make a deep incision in the palmar aponeurosis. The sourav retractors were then placed deep to this and the transverse carpal ligament was identified a perforation was made with a scalpel and a Littler scissors were used to complete the release of the transverse carpal ligament distally under direct visualization with the tips facing ulnarly until the perivascular fat was reached. Then turning our attention proximally using a tension slide technique the proximal extent of the transverse carpal ligament was released . There was noted to be severe hypertrophy of the transverse carpal ligament ligament without other findings. The wound was thoroughly irrigated and was closed with 4-0 nylon vertical mattress stitches. Dressing was applied in the form of xeroform 4 x 4, web roll and an sanaz wrap from the hand to the axilla.. Tourniquet was let down there is no intraoperative complications patient tolerated the procedure well and was transferred to the PACU. All counts were correct.
--- NOTE | 2021-12-10 08:55 | DCINST_ITS ---
Discharge Instructions Dressing / Incision Call your doctor if you observe: Shortness of breath and Chest pain Additional Dressing/Incision Instructions:: Ice and elevate operative extremity next 72 hours. Keep dressing on clean and dry for 48 hours then may remove and allow warm soapy water to rinse over incision but do not submerge until sutures are out. Then apply bandaid over incision and change daily. encourage finger range of motion. Not lift more than 1/2 pound. Minimize narcotic use only as needed and directed, may use OTC NSAID and Tylenol to supplement/substitute for pain control. Follow Up Care Please Follow Up With: Garfield Montalvo DO When: 2 weeks Test Results: Test results from this visit will be discussed in further detail at your follow- up appointment, if applicable. Discharge Plan Admission Attending Provider: Garfield Montalvo Primary Care Provider: Franky Craig Chi Discharge Orders/Prescriptions Prescriptions: New oxycodone 5 mg tablet 5 mg PO Q4H PRN (Reason: pain) 5 Days Qty: 15 0RF No Action omeprazole 10 mg capsule,delayed release(DR/EC) 10 mg PO DAILY ferrous sulfate 325 mg (65 mg iron) tablet 65 mg PO QHS hydroxychloroquine [Plaquenil] 200 mg tablet 200 mg PO BID Soliqua 100/33 100 unit-33 mcg/mL insulin pen 15 unit subcut QAM ascorbic acid (vitamin C) 500 mg tablet 500 mg PO DAILY prednisone 10 mg tablet 10 mg PO DAILY PRN (Reason: RHEUMATIOD ARTHRITIS) leflunomide 10 mg tablet 10 mg PO DAILY Label Comments: take 1 tablet by mouth once daily finasteride [Proscar] 5 MG tablet 5 mg PO QHS amlodipine 10 MG tablet 10 mg PO QHS pioglitazone [Actos] 30 MG tablet 30 mg PO QHS Vitamin D3 1,000 unit PO DAILY benazepril 5 mg tablet 10 mg PO QHS Referrals / Follow Up: Franky Craig Chi, MD [Primary Care Provider] - Disposition Discharge Orders: Discharge Patient (Routine); Ordered 12/10/21 Ordered By: Dr. Garfield Montalvo
[2021-12-10 09:00] VITALS: BP 129/57; BP 143/75; PULSE 70; RESP 16; TEMP 36.1; O2SAT 97
[2021-12-10 09:15] VITALS: BP 133/70; BP 143/75; PULSE 59; RESP 16; O2SAT 96
[2021-12-10 09:30] VITALS: BP 109/61; BP 143/75; PULSE 68; RESP 16; TEMP 36.2; O2SAT 98
[2021-12-10 09:55] LABS: Bedside Glucose 115 mg/dL (74-106)
[2021-12-10 10:08] VITALS: BP 110/72; BP 143/75; PULSE 72; RESP 16; TEMP 36.1; O2SAT 98
== END 2021-12-10 10:19 | disposition home or self-care (01) ==
LOC: SDC 06:05 → AC 06:06
PROVIDERS: PCP Family Medicine Geriatric Medicine; Referring Provider Orthopaedic Surgery; Visit Provider Orthopaedic Surgery
PROC: (CPT 64721; principal; 2021-12-10 07:15)
PROC: (CPT 64721; 2021-12-10 07:15)
DX: G56.03 Carpal tunnel syndrome, bilateral upper limbs (principal); M06.9 Rheumatoid arthritis, unspecified; E11.22 Type 2 diabetes mellitus with diabetic chronic kidney disease; Z79.4 Long term (current) use of insulin; N18.30 Chronic kidney disease, stage 3 unspecified; G56.23 Lesion of ulnar nerve, bilateral upper limbs; E78.5 Hyperlipidemia, unspecified; I12.9 Hypertensive chronic kidney disease with stage 1 through stage 4 chronic kidney disease, or unspecified chronic kidney disease; D63.1 Anemia in chronic kidney disease; K21.9 Gastro-esophageal reflux disease without esophagitis; Z79.899 Other long term (current) drug therapy; Z87.891 Personal history of nicotine dependence
CPT/HCPCS: 64721; 01810; 64718; 82962; J7120

== ENCOUNTER → 2022-01-13 | Outpatient (CLI) | payer MEDICARE, SELFPAY ==
[2022-01-13 12:04] LABS: Absolute Lymphocyte Count 1.53 X10^3/uL (0.83-4.51); Absolute Neutrophil Count 4.6 X10^3/uL (2.0-7.7); Basophil# 0.09 X10^3/uL; Basophil% 1.2 % (0-1); Eosinophil# 0.38 X10^3/uL; Hematocrit 33.4 % (40-54); Lymphocyte # 1.53 X10^3/ul (0.83-4.51); Lymphocyte % 20.2 % (19-41); Mean Corp Hgb Conc 32.9 g/dL (32-36); Mean Corpuscular Hgb 29.7 pg (27.0-32.0); Mean Corpuscular Volume 90.3 fL (80-94); Monocyte# 0.93 X10^3/uL; Monocyte% 12.3 % (0-10); NRBC Flagged by Analyzer 0 % (0-5); Neutrophil # 4.61 X10^3/uL (2.7-7.7); Neutrophil % 60.8 % (47-70); Platelet Count 178 K/mm3 (150-450); RBC Distribution Width SD 49.8 fl (35.1-43.9); White Blood Count 7.6 K/mm3 (4.4-11.0)
[2022-01-13 12:32] LABS: Vitamin D,25 Hydroxy 29.5 ng/mL
[2022-01-13 12:41] LABS: ALB/GLOB Ratio 0.8 RATIO (0.9-2.4); AST(SGOT) 21 U/L (15-37); Alanine Aminotransfer ALT/SGPT 24 U/L (16-61); Albumin, Serum 3.3 g/dL (3.2-5.0); Alkaline Phosphatase 85 U/L (45-117); Anion Gap 8 (5-15); BUN 25 mg/dL (7-18); BUN/Creat Ratio 20.2 RATIO (10-20); Calcium,Total 9.3 mg/dL (8.5-10.1); Chloride 109 mmol/L (98-107); Creatinine, Serum 1.24 mg/dL (0.70-1.30); EST Glomerular Filtration Rate 60 mL/min (>60); Est Glom Filt Rate - Afr Amer 72 mL/min (>60); Globulin 4.2 g/dL (2.2-4.2); Glucose 122 mg/dL (74-106); Potassium 3.8 mmol/L (3.5-5.1); Protein, Total 7.5 g/dL (6.4-8.2); Sodium Level 140 mmol/L (136-145); Thyroid Stim Hormone (TSH) 1.05 uIU/mL (0.358-3.74)
== END | disposition home or self-care (01) ==
LOC: POLAB3 09:21
PROVIDERS: PCP Family Medicine Geriatric Medicine; Visit Provider Family Medicine Geriatric Medicine
DX: I10 Essential (primary) hypertension (principal); E11.9 Type 2 diabetes mellitus without complications; E55.9 Vitamin D deficiency, unspecified; F52.8 Other sexual dysfunction not due to a substance or known physiological condition
CPT/HCPCS: 36415; 80053; 82306; 84403; 84443; 85025

== ENCOUNTER → 2022-02-19 | Outpatient (CLI) | payer MEDICARE, SELFPAY ==
[2022-02-19 12:38] LABS: Protein:Creat Ratio 429 mg/g CRE (0-200)
[2022-02-19 12:43] LABS: Albumin, Serum 3.6 g/dL (3.2-5.0); BUN 28 mg/dL (7-18); BUN/Creat Ratio 21.1 RATIO (10-20); Calcium,Total 8.9 mg/dL (8.5-10.1); Chloride 106 mmol/L (98-107); Creatinine, Serum 1.33 mg/dL (0.70-1.30); EST Glomerular Filtration Rate 55 mL/min (>60); Est Glom Filt Rate - Afr Amer 66 mL/min (>60); Glucose 188 mg/dL (74-106); Phosphorus 2.9 mg/dL (2.5-4.9); Potassium 4.1 mmol/L (3.5-5.1); Sodium Level 139 mmol/L (136-145)
== END | disposition home or self-care (01) ==
PROVIDERS: PCP Family Medicine Geriatric Medicine; Referring Provider Internal Medicine Nephrology; Visit Provider Internal Medicine Nephrology
DX: E11.22 Type 2 diabetes mellitus with diabetic chronic kidney disease (principal); N18.31 Chronic kidney disease, stage 3a
CPT/HCPCS: 36415; 80069; 82570; 84156

== ENCOUNTER → 2022-03-11 | Outpatient (CLI) | payer MEDICARE, SELFPAY ==
[2022-03-11 15:14] LABS: Absolute Lymphocyte Count 1.94 X10^3/uL (0.83-4.51); Absolute Neutrophil Count 4.7 X10^3/uL (2.0-7.7); Basophil# 0.11 X10^3/uL; Basophil% 1.4 % (0-1); Eosinophil# 0.19 X10^3/uL; Eosinophils% 2.4 % (0-5); Hemoglobin 10.7 g/dL (13.0-16.5); Lymphocyte # 1.94 X10^3/ul (0.83-4.51); Lymphocyte % 24.8 % (19-41); Mean Corp Hgb Conc 32.4 g/dL (32-36); Mean Corpuscular Hgb 30.1 pg (27.0-32.0); Mean Platelet Vol. 12.6 fl (6.2-12.0); Monocyte# 0.85 X10^3/uL; Monocyte% 10.9 % (0-10); NRBC Flagged by Analyzer 0 % (0-5); Neutrophil % 60.1 % (47-70); Platelet Count 179 K/mm3 (150-450); RBC Distribution Width CV 15.9 % (11.6-14.6); RBC Distribution Width SD 54.5 fl (35.1-43.9); Red Blood Count 3.55 M/mm3 (4.6-6.2); White Blood Count 7.8 K/mm3 (4.4-11.0)
[2022-03-11 15:58] LABS: AST(SGOT) 22 U/L (15-37); Alanine Aminotransfer ALT/SGPT 19 U/L (16-61); Albumin, Serum 3.6 g/dL (3.2-5.0); Alkaline Phosphatase 81 U/L (45-117); Anion Gap 8 (5-15); BUN 27 mg/dL (7-18); Calcium,Total 8.5 mg/dL (8.5-10.1); Chloride 108 mmol/L (98-107); Creatinine, Serum 1.23 mg/dL (0.70-1.30); EST Glomerular Filtration Rate 60 mL/min (>60); Est Glom Filt Rate - Afr Amer 73 mL/min (>60); Globulin 3.5 g/dL (2.2-4.2); Glucose 133 mg/dL (74-106); Potassium 3.9 mmol/L (3.5-5.1); Protein, Total 7.1 g/dL (6.4-8.2); Sodium Level 139 mmol/L (136-145)
== END | disposition home or self-care (01) ==
LOC: MTLAB 13:49
PROVIDERS: PCP Family Medicine Geriatric Medicine; Referring Provider Internal Medicine Rheumatology; Visit Provider Internal Medicine Rheumatology
DX: M06.4 Inflammatory polyarthropathy (principal); E11.9 Type 2 diabetes mellitus without complications; Z79.899 Other long term (current) drug therapy; G56.03 Carpal tunnel syndrome, bilateral upper limbs; K21.9 Gastro-esophageal reflux disease without esophagitis; I10 Essential (primary) hypertension; E78.5 Hyperlipidemia, unspecified; N40.1 Benign prostatic hyperplasia with lower urinary tract symptoms
CPT/HCPCS: 36415; 80053; 85025

== ENCOUNTER 2022-03-28 08:00 | Outpatient (RCR) | payer MEDICARE, SELFPAY ==
--- NOTE | 2022-02-28 09:00 | HP.PTEVAL_ITS ---
Patient's Visit Information CELIA BARNARD is a 81 year old M referred to Physical Therapy by Dr. Garfield Montalvo, DO with a diagnosis of ILIOTIBIAL BAND SYNDROME, PRESENCE OF LEFT ARTIFICIAL HIP. Date of Evaluation: 02/28/22 Physical Therapist: Terence Ramirez, PT, Cert MDT, OCS - Visit Plan Frequency: 2x /Week Duration: 4 Weeks Plan: S/P THR POSTERIOR THR FEB 22 2012. PT INTERVENTIONS STICK/STM/MASSAGE GUN ITBAND ,MODALTIES C/P/MHP/ESTIM/US , PROGRESS TO STRENGTHNEING HIP AND DLS - Subjective This 81 y/o male presents with physical IT band syndrome s/p THR ~ 1 year ago. Patient underwent s/p DAWSON Feb [address] Montalvo . Patient surgery went great and had PT . Patient developed lateral hip pain since summer became progressively worse with IT band and as day goes on . Symptoms worse past several months . Patient had x-rays of hip -. Seen Rosy recommended PT. No meds tried volterian cream. Dr Cole last year wanted surgery bur seen severe DJD in left hip. Denies paresthesia/tingling. Aggravating factors walking and standing. Symptoms affects housework tasks. Alleviating factors rest. Patient sleeping. Some difficulty with stairs. Patient condition affects QOL. SOCIAL: . VOCATION: RETIRED - Pain Left Lower Extremity Pain Intensity (Out of 10): 2 Pain Intensity Range: 10 Comment: LATERAL HIP - Objective POSTURE: mild forward posture hips/knee flexed. GAIT : reciprocal pattern mild decrease stance time forward posture. PALAPTION: tender I T BAND tender. NE URO: intact. MMT ( peak force) : quads 23.7 ,hamstrings 24.5 ,hip flexion 17.9 ,hip abduction 12.2. - Balance/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 Scores Lower Extremity Functional Score: 34 - Goals Goal 1:: Patient to be I with HEP Goal Time Frame: 4-6 Weeks Goal 2:: Patient improve peak force of hip /knee by 5-10 to improve function Goal Time Frame: 4-6 Weeks Goal 3:: Patient to demonstrate 50% improvement with less pain and improved fun ction. Goal Time Frame: 4-6 Weeks Goal 4:: Patient to improve LFES score by 5-10 pints to improve QOL and function. Goal Time Frame: 4-6 Weeks Goal 5:: Patient be able to stand/walk with less pain and improved ADL's Goal Time Frame: 4-6 Weeks - Rehabilitation Potential Physical Therapy Diagnosis: This patient had s/p THR posterior Feb 21 developed lateral hip pain with possible IT band also does have h/o lumbar pain with radicular symptoms with lumbar stenosis with pain worse with walking and standing lateral hip and some tenderness thus benefit from skilled PT Rehabilitation Potential: Good - Anticipated Interventions Patient/Client Instruction: Educate patient on: Condition, Plan of Care For the Purpose of:: To decrease pain, To increase ROM, To improve muscle performance and motor function, To improve ability to perform ADL's, To increase tolerance to activity/condition/position, To improve ability of physical actions for home/community/work/leisure, To improve health of tissue, To decrease soft tissue restriction, To increase flexibility/ROM, To improve tolerance to ADL's Therapeutic Exercise to Include: Strength training, Endurance training, Balance training, Dynamic Lumbar Stabilization Comment: HIP For the Purpose of:: To decrease pain, To increase ROM, To improve muscle performance and motor function, To improve ability to perform ADL's, To increase tolerance to activity/condition/position, To improve ability of physical actions for home/community/work/leisure, To improve health of tissue, To decrease soft tissue restriction, To increase flexibility/ROM, To improve tolerance to ADL's Manual Therapy Techniques to Include: Massage, Soft tissue mobilization Comment: STICK/ITBAND For the Purpose of:: To decrease pain, To increase ROM, To improve nutrient delivery to tissue, To increase oxygenation perfusion, To improve health of tissue, To decrease soft tissue restriction, To increase flexibility/ROM TENS: Yes IF ES: Yes Cryotherapy (ice pack, ice massage): Yes Thermo therapy (hot pack): Yes Ultrasound (thermal/non thermal): Yes For the Purpose of:: To decrease pain, To improve nutrient delivery to tissue, To increase oxygenation perfusion, To improve health of tissue, To decrease soft tissue restriction Thank you for the opportunity to evaluate your patient. For Medicare and Medicare HMO plans, please review the plan of care and approve it. It will need to be FAXED BACK to us at [phone] for Medicare purposes. For Medicare only, by signing this I certify the plan of care. Please let me know if there are questions or concerns regarding this plan of care. Physician Signature: Date:
--- NOTE | 2022-03-28 08:35 | HP.PTDCSUM ---
It has been my pleasure to treat CELIA BARNARD referred by Dr. Garfield Montalvo DO, with the diagnosis of ILIOTIBIAL BAND SYNDROME, PRESENCE OF LEFT ARTIFICIAL HIP for a total of 9 visit(s). Discharge Date: Please see the following information for a summary of their discharge status. Subjective: Doing well Left Lower Extremity Pain Intensity (Out of 10): 0 Left Back Pain Intensity (Out of 10): 0 % Improvement: 50 Objective/Function: POSTURE: forward posture. GAIT : antalgic gait left side reciprocal patteren. MMT: 4/ 5 quads/hams ,HIP FLEXION/ABD 4-/.5 Goal 1:: Patient to be I with HEP Goal 2:: Patient improve peak force of hip /knee by 5-10 to improve function Goal 3:: Patient to demonstrate 50% improvement with less pain and improved function. Goal 4:: Patient to improve LFES score by 5-10 pints to improve QOL and function. Goal 5:: Patient be able to stand/walk with less pain and improved ADL's Plan: d/c to hep If there are questions or concerns regarding this patient's physical therapy, please feel free to call me at [phone]. Thank you for the referral of this patient. Sincerely, Terence Ramirez, PT, Cert MDT, OCS Balance/Gait/Functional tests - Balance/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 Scores Lower Extremity Functional Score: 50
== END 2022-03-28 19:00 | disposition home or self-care (01) ==
LOC: PT 08:00
PROVIDERS: PCP Family Medicine Geriatric Medicine; Referring Provider Orthopaedic Surgery; Visit Provider Orthopaedic Surgery
DX: M76.30 Iliotibial band syndrome, unspecified leg (principal); Z96.642 Presence of left artificial hip joint
CPT/HCPCS: 97110; 97162

== ENCOUNTER → 2022-06-04 | Outpatient (CLI) | payer MEDICARE, SELFPAY ==
[2022-06-04 14:57] LABS: Absolute Neutrophil Count 8.1 X10^3/uL (2.0-7.7); Basophil% 0.9 % (0-1); Eosinophil# 0.13 X10^3/uL; Eosinophils% 1.1 % (0-5); Hematocrit 35.7 % (40-54); Hemoglobin 11.3 g/dL (13.0-16.5); Lymphocyte % 15.7 % (19-41); Mean Corp Hgb Conc 31.7 g/dL (32-36); Mean Corpuscular Volume 91.8 fL (80-94); Mean Platelet Vol. 12.1 fl (6.2-12.0); Monocyte# 1.27 X10^3/uL; Monocyte% 11.1 % (0-10); NRBC Flagged by Analyzer 0 % (0-5); Neutrophil # 8.07 X10^3/uL (2.7-7.7); Neutrophil % 70.5 % (47-70); Platelet Count 184 K/mm3 (150-450); RBC Distribution Width SD 53.8 fl (35.1-43.9); Red Blood Count 3.89 M/mm3 (4.6-6.2); White Blood Count 11.5 K/mm3 (4.4-11.0)
[2022-06-04 15:43] LABS: AST(SGOT) 20 U/L (15-37); Alanine Aminotransfer ALT/SGPT 21 U/L (16-61); Albumin, Serum 3.6 g/dL (3.2-5.0); Alkaline Phosphatase 75 U/L (45-117); Anion Gap 8 (5-15); BUN 25 mg/dL (7-18); Calcium,Total 8.6 mg/dL (8.5-10.1); Chloride 106 mmol/L (98-107); Creatinine, Serum 1.19 mg/dL (0.70-1.30); EST Glomerular Filtration Rate 62 mL/min (>60); Est Glom Filt Rate - Afr Amer 75 mL/min (>60); Globulin 3.5 g/dL (2.2-4.2); Glucose 104 mg/dL (74-106); Potassium 4.3 mmol/L (3.5-5.1); Protein, Total 7.1 g/dL (6.4-8.2); Sodium Level 139 mmol/L (136-145)
== END | disposition home or self-care (01) ==
LOC: MTLAB 13:00
PROVIDERS: PCP Family Medicine Geriatric Medicine; Referring Provider Internal Medicine Rheumatology; Visit Provider Internal Medicine Rheumatology
DX: M06.4 Inflammatory polyarthropathy (principal); E11.9 Type 2 diabetes mellitus without complications; G56.03 Carpal tunnel syndrome, bilateral upper limbs; K21.9 Gastro-esophageal reflux disease without esophagitis; I10 Essential (primary) hypertension; E78.5 Hyperlipidemia, unspecified; N40.1 Benign prostatic hyperplasia with lower urinary tract symptoms; Z79.899 Other long term (current) drug therapy
CPT/HCPCS: 36415; 80053; 85025

== ENCOUNTER → 2022-07-15 | Outpatient (CLI) | payer MEDICARE, SELFPAY ==
[2022-07-15 13:25] LABS: Absolute Lymphocyte Count 1.79 X10^3/uL (0.83-4.51); Basophil# 0.11 X10^3/uL; Basophil% 1.6 % (0-1); Eosinophil# 0.17 X10^3/uL; Eosinophils% 2.5 % (0-5); Hematocrit 35.6 % (40-54); Hemoglobin 11.5 g/dL (13.0-16.5); Lymphocyte # 1.79 X10^3/ul (0.83-4.51); Lymphocyte % 26.8 % (19-41); Mean Corp Hgb Conc 32.3 g/dL (32-36); Mean Corpuscular Hgb 29.9 pg (27.0-32.0); Mean Corpuscular Volume 92.7 fL (80-94); Mean Platelet Vol. 12.3 fl (6.2-12.0); Monocyte# 0.63 X10^3/uL; Monocyte% 9.4 % (0-10); NRBC Flagged by Analyzer 0 % (0-5); Neutrophil # 3.95 X10^3/uL (2.7-7.7); Neutrophil % 59.3 % (47-70); Platelet Count 170 K/mm3 (150-450); RBC Distribution Width CV 16.5 % (11.6-14.6); RBC Distribution Width SD 55.7 fl (35.1-43.9); RET-HE 32.1 pg (30-35); Red Blood Count 3.84 M/mm3 (4.6-6.2); Reticulocyte Count 1.47 % (0.5-1.5); White Blood Count 6.7 K/mm3 (4.4-11.0)
[2022-07-15 13:38] LABS: Vitamin D,25 Hydroxy 29.5 ng/mL
[2022-07-15 13:44] LABS: AST(SGOT) 23 U/L (15-37); Alanine Aminotransfer ALT/SGPT 24 U/L (16-61); Albumin, Serum 3.6 g/dL (3.2-5.0); Alkaline Phosphatase 71 U/L (45-117); Anion Gap 7 (5-15); BUN 26 mg/dL (7-18); BUN/Creat Ratio 18.7 RATIO (10-20); Calcium,Total 8.9 mg/dL (8.5-10.1); Chloride 109 mmol/L (98-107); Creatinine, Serum 1.39 mg/dL (0.70-1.30); EST Glomerular Filtration Rate 52 mL/min (>60); Est Glom Filt Rate - Afr Amer 63 mL/min (>60); Ferritin 325 ng/mL (26-388); Globulin 3.6 g/dL (2.2-4.2); Glucose 163 mg/dL (74-106); Iron 73 ug/dL (65-175); Iron Binding Capacity,Total 294 ug/dL (250-450); PERCENT IRON SATURATION 24.8 % (15.0-55.0); Potassium 4.1 mmol/L (3.5-5.1); Protein, Total 7.2 g/dL (6.4-8.2); Sodium Level 140 mmol/L (136-145); Thyroid Stim Hormone (TSH) 1.25 uIU/mL (0.358-3.74)
== END | disposition home or self-care (01) ==
LOC: POLAB3 10:15
PROVIDERS: Internal Medicine Hematology & Oncology; PCP Family Medicine Geriatric Medicine; Visit Provider Family Medicine Geriatric Medicine
DX: E11.65 Type 2 diabetes mellitus with hyperglycemia (principal); R53.83 Other fatigue; E55.9 Vitamin D deficiency, unspecified
CPT/HCPCS: 36415; 80053; 82306; 82728; 83540; 83550; 84443; 85025; 85045

== ENCOUNTER → 2022-08-25 | Outpatient (CLI) | payer MEDICARE, SELFPAY ==
[2022-08-25 12:14] LABS: Absolute Lymphocyte Count 2.19 X10^3/uL (0.83-4.51); Absolute Neutrophil Count 5.4 X10^3/uL (2.0-7.7); Basophil# 0.09 X10^3/uL; Eosinophil# 0.08 X10^3/uL; Eosinophils% 0.9 % (0-5); Hematocrit 38.6 % (40-54); Hemoglobin 12.1 g/dL (13.0-16.5); Lymphocyte # 2.19 X10^3/ul (0.83-4.51); Lymphocyte % 25.4 % (19-41); Mean Corp Hgb Conc 31.3 g/dL (32-36); Mean Corpuscular Hgb 29.7 pg (27.0-32.0); Mean Corpuscular Volume 94.6 fL (80-94); Mean Platelet Vol. 12.1 fl (6.2-12.0); Monocyte# 0.81 X10^3/uL; Monocyte% 9.4 % (0-10); NRBC Flagged by Analyzer 0 % (0-5); Neutrophil # 5.38 X10^3/uL (2.7-7.7); Neutrophil % 62.6 % (47-70); Platelet Count 182 K/mm3 (150-450); RBC Distribution Width CV 16.2 % (11.6-14.6); RBC Distribution Width SD 56.3 fl (35.1-43.9); Red Blood Count 4.08 M/mm3 (4.6-6.2); White Blood Count 8.6 K/mm3 (4.4-11.0)
[2022-08-25 12:48] LABS: AST(SGOT) 21 U/L (15-37); Alanine Aminotransfer ALT/SGPT 27 U/L (16-61); Albumin, Serum 3.8 g/dL (3.2-5.0); Alkaline Phosphatase 90 U/L (45-117); Anion Gap 6 (5-15); BUN 22 mg/dL (7-18); BUN/Creat Ratio 17.6 RATIO (10-20); Chloride 104 mmol/L (98-107); Creatinine, Serum 1.25 mg/dL (0.70-1.30); EST Glomerular Filtration Rate 59 mL/min (>60); Est Glom Filt Rate - Afr Amer 71 mL/min (>60); Globulin 3.8 g/dL (2.2-4.2); Glucose 168 mg/dL (74-106); Potassium 4.1 mmol/L (3.5-5.1); Protein, Total 7.6 g/dL (6.4-8.2); Sodium Level 134 mmol/L (136-145)
== END | disposition home or self-care (01) ==
PROVIDERS: PCP Family Medicine Geriatric Medicine; Referring Provider Internal Medicine Rheumatology; Visit Provider Internal Medicine Rheumatology
DX: M06.4 Inflammatory polyarthropathy (principal); Z79.899 Other long term (current) drug therapy
CPT/HCPCS: 36415; 80053; 85025

== ENCOUNTER → 2022-10-22 | Outpatient (CLI) | payer MEDICARE, SELFPAY ==
[2022-10-22 15:10] LABS: Absolute Lymphocyte Count 2.04 X10^3/uL (0.83-4.51); Absolute Neutrophil Count 4.4 X10^3/uL (2.0-7.7); Basophil# 0.12 X10^3/uL; Basophil% 1.5 % (0-1); Eosinophil# 0.19 X10^3/uL; Eosinophils% 2.4 % (0-5); Hematocrit 35.4 % (40-54); Hemoglobin 11.5 g/dL (13.0-16.5); Lymphocyte # 2.04 X10^3/ul (0.83-4.51); Mean Corp Hgb Conc 32.5 g/dL (32-36); Mean Corpuscular Hgb 30.2 pg (27.0-32.0); Mean Corpuscular Volume 92.9 fL (80-94); Mean Platelet Vol. 12.6 fl (6.2-12.0); Monocyte# 1.01 X10^3/uL; Monocyte% 12.9 % (0-10); NRBC Flagged by Analyzer 0 % (0-5); Neutrophil # 4.43 X10^3/uL (2.7-7.7); Neutrophil % 56.6 % (47-70); Platelet Count 200 K/mm3 (150-450); RBC Distribution Width SD 54.1 fl (35.1-43.9); Red Blood Count 3.81 M/mm3 (4.6-6.2); White Blood Count 7.8 K/mm3 (4.4-11.0)
[2022-10-22 15:38] LABS: AST(SGOT) 26 U/L (15-37); Alanine Aminotransfer ALT/SGPT 25 U/L (16-61); Albumin, Serum 3.6 g/dL (3.2-5.0); Alkaline Phosphatase 75 U/L (45-117); Anion Gap 5 (5-15); BUN 20 mg/dL (7-18); BUN/Creat Ratio 15.6 RATIO (10-20); Calcium,Total 8.4 mg/dL (8.5-10.1); Chloride 109 mmol/L (98-107); Creatinine, Serum 1.28 mg/dL (0.70-1.30); EST Glomerular Filtration Rate 57 mL/min (>60); Est Glom Filt Rate - Afr Amer 69 mL/min (>60); Globulin 3.6 g/dL (2.2-4.2); Glucose 116 mg/dL (74-106); Potassium 4.5 mmol/L (3.5-5.1); Protein, Total 7.2 g/dL (6.4-8.2); Sodium Level 138 mmol/L (136-145)
== END | disposition home or self-care (01) ==
LOC: MTLAB 11:52
PROVIDERS: PCP Family Medicine Geriatric Medicine; Referring Provider Internal Medicine Rheumatology; Visit Provider Internal Medicine Rheumatology
DX: M06.4 Inflammatory polyarthropathy (principal); Z79.899 Other long term (current) drug therapy
CPT/HCPCS: 36415; 80053; 85025

== ENCOUNTER → 2023-01-20 | Outpatient (CLI) | payer MEDICARE, SELFPAY ==
[2023-01-20 12:00] LABS: Absolute Lymphocyte Count 1.63 X10^3/uL (0.83-4.51); Absolute Neutrophil Count 4.5 X10^3/uL (2.0-7.7); Basophil# 0.13 X10^3/uL; Basophil% 1.8 % (0-1); Eosinophil# 0.25 X10^3/uL; Eosinophils% 3.4 % (0-5); Hematocrit 30.8 % (40-54); Lymphocyte # 1.63 X10^3/ul (0.83-4.51); Mean Corp Hgb Conc 32.5 g/dL (32-36); Mean Corpuscular Hgb 30.1 pg (27.0-32.0); Mean Corpuscular Volume 92.8 fL (80-94); Mean Platelet Vol. 12.1 fl (6.2-12.0); Monocyte# 0.88 X10^3/uL; Monocyte% 11.9 % (0-10); NRBC Flagged by Analyzer 0 % (0-5); Neutrophil # 4.46 X10^3/uL (2.7-7.7); Neutrophil % 60.1 % (47-70); Platelet Count 158 K/mm3 (150-450); RBC Distribution Width CV 16.9 % (11.6-14.6); RBC Distribution Width SD 57.6 fl (35.1-43.9); Red Blood Count 3.32 M/mm3 (4.6-6.2); White Blood Count 7.4 K/mm3 (4.4-11.0)
[2023-01-20 12:13] LABS: Vitamin D,25 Hydroxy 44.1 ng/mL
[2023-01-20 12:25] LABS: AST(SGOT) 24 U/L (15-37); Alanine Aminotransfer ALT/SGPT 29 U/L (16-61); Albumin, Serum 3.5 g/dL (3.2-5.0); Alkaline Phosphatase 74 U/L (45-117); Anion Gap 6 (5-15); BUN 26 mg/dL (7-18); BUN/Creat Ratio 20.6 RATIO (10-20); Calcium,Total 8.4 mg/dL (8.5-10.1); Chloride 111 mmol/L (98-107); Creatinine, Serum 1.26 mg/dL (0.70-1.30); EST Glomerular Filtration Rate 58 mL/min (>60); Est Glom Filt Rate - Afr Amer 71 mL/min (>60); Globulin 3.4 g/dL (2.2-4.2); Glucose 146 mg/dL (74-106); Potassium 3.9 mmol/L (3.5-5.1); Protein, Total 6.9 g/dL (6.4-8.2); Sodium Level 141 mmol/L (136-145); Thyroid Stim Hormone (TSH) 1.27 uIU/mL (0.358-3.74)
== END | disposition home or self-care (01) ==
LOC: POLAB3 10:06
PROVIDERS: PCP Family Medicine Geriatric Medicine; Visit Provider Family Medicine Geriatric Medicine
DX: E11.65 Type 2 diabetes mellitus with hyperglycemia (principal); I10 Essential (primary) hypertension; E55.9 Vitamin D deficiency, unspecified
CPT/HCPCS: 36415; 80053; 82306; 84443; 85025

== ENCOUNTER → 2023-02-16 | Outpatient (CLI) | payer MEDICARE, SELFPAY ==
[2023-02-16 15:37] LABS: PTHIN 119.6 pg/mL (18.4-80.1)
[2023-02-16 15:45] LABS: Albumin, Serum 3.4 g/dL (3.2-5.0); BUN 22 mg/dL (7-18); BUN/Creat Ratio 16.2 RATIO (10-20); Calcium,Total 8.5 mg/dL (8.5-10.1); Chloride 108 mmol/L (98-107); Creatinine, Serum 1.36 mg/dL (0.70-1.30); EST Glomerular Filtration Rate 53 mL/min (>60); Est Glom Filt Rate - Afr Amer 65 mL/min (>60); Glucose 129 mg/dL (74-106); Phosphorus 2.6 mg/dL (2.5-4.9); Potassium 4.4 mmol/L (3.5-5.1); Sodium Level 139 mmol/L (136-145)
== END | disposition home or self-care (01) ==
LOC: MTLAB 12:50
PROVIDERS: PCP Family Medicine Geriatric Medicine; Referring Provider Internal Medicine Nephrology; Visit Provider Internal Medicine Nephrology
DX: N18.31 Chronic kidney disease, stage 3a (principal)
CPT/HCPCS: 36415; 80069; 83970

== ENCOUNTER → 2023-03-02 | Outpatient (CLI) | payer MEDICARE, SELFPAY ==
[2023-03-02 16:20] LABS: Absolute Lymphocyte Count 1.86 X10^3/uL (0.83-4.51); Absolute Neutrophil Count 4.4 X10^3/uL (2.0-7.7); Basophil# 0.12 X10^3/uL; Basophil% 1.6 % (0-1); Eosinophil# 0.18 X10^3/uL; Eosinophils% 2.4 % (0-5); Hematocrit 32.4 % (40-54); Hemoglobin 10.7 g/dL (13.0-16.5); Lymphocyte # 1.86 X10^3/ul (0.83-4.51); Lymphocyte % 25.2 % (19-41); Mean Corpuscular Hgb 30.3 pg (27.0-32.0); Mean Corpuscular Volume 91.8 fL (80-94); Mean Platelet Vol. 12.1 fl (6.2-12.0); Monocyte# 0.84 X10^3/uL; Monocyte% 11.4 % (0-10); NRBC Flagged by Analyzer 0 % (0-5); Neutrophil # 4.36 X10^3/uL (2.7-7.7); Platelet Count 172 K/mm3 (150-450); RBC Distribution Width SD 53.1 fl (35.1-43.9); Red Blood Count 3.53 M/mm3 (4.6-6.2); White Blood Count 7.4 K/mm3 (4.4-11.0)
[2023-03-02 16:30] LABS: Prothrombin Time (Protime)PT. 13.2 SECONDS (11.7-14.9)
[2023-03-02 16:31] LABS: Partial Thromboplast Time 27.5 Seconds (24.1-36.2)
[2023-03-02 17:12] LABS: AST(SGOT) 28 U/L (15-37); Alanine Aminotransfer ALT/SGPT 28 U/L (16-61); Albumin, Serum 3.7 g/dL (3.2-5.0); Alkaline Phosphatase 73 U/L (45-117); Anion Gap 5 (5-15); BUN 28 mg/dL (7-18); BUN/Creat Ratio 22.6 RATIO (10-20); Calcium,Total 8.7 mg/dL (8.5-10.1); Chloride 111 mmol/L (98-107); Creatinine, Serum 1.24 mg/dL (0.70-1.30); EST Glomerular Filtration Rate 59 mL/min (>60); Est Glom Filt Rate - Afr Amer 72 mL/min (>60); Globulin 3.7 g/dL (2.2-4.2); Glucose 103 mg/dL (74-106); Potassium 3.7 mmol/L (3.5-5.1); Protein, Total 7.4 g/dL (6.4-8.2); Sodium Level 137 mmol/L (136-145)
== END | disposition home or self-care (01) ==
LOC: POLAB3 15:28
PROVIDERS: PCP Family Medicine Geriatric Medicine; Visit Provider Family Medicine Geriatric Medicine
DX: Z01.818 Encounter for other preprocedural examination (principal)
CPT/HCPCS: 36415; 80053; 85025; 85610; 85730

== ENCOUNTER 2023-03-10 06:37 | Outpatient (CLI) | payer MEDICARE, SELFPAY ==
--- NOTE | 2023-03-10 15:24 | STRESSREP ---
Stress Test Report Date: 03/10/23 Procedure: Pharmacologic stress nuclear imaging study Indications: Preoperative evaluation Consent: Per the patient Procedure: The patient underwent pharmacologic (Regadenoson) evaluation with a peak heart rate of 80 beats per minute (57%predicted maximal heart rate) and a peak blood pressure of 170/80 mmHg. The baseline ECG demonstrated normal sinus rhythm, frequent PACs. EKG during lexiscan infusion revealed no significant ischemic changes. EKG post infusion revealed no significant ischemic changes [There were no cardiac dysrhythmias pretest, during pharmacologic infusion, or recovery]. [There was no complaint of chest discomfort during pharmacologic infusion or recovery]. The examination was discontinued secondary to completion of protocol. Impression: 1. Lexiscan stress test test is negative for Lexiscan infusion induced EKG changes of ischemia. 2. Lexiscan stress test test is negative for Lexiscan infusion induced chest pain. 3. Results of the nuclear portion of the test is as below Myocardial perfusion imaging study: Technique: The patient was injected with 14.7 millicuries of technetium 99m Cardiolite and subsequently rest SPECT Cardiolite nuclear imaging was obtained in the horizontal long, vertical long, and short axis views. The patient underwent pharmacologic [Regadenoson 0.4mg] evaluation. Please see above for details. The patient was injected with 45 millicuries of technetium 99m Cardiolite and subsequently stress SPECT Cardiolite nuclear imaging was obtained in the horizontal long, vertical long, and short axis views. A gated Cardiolite study at peak stress was obtained. Interpretation: Rest and stress SPECT Cardiolite nuclear imaging status post realignment, normalization, and attenuation correction demonstrate no evidence of significant ischemia or infarction. Gated images reveal no significant regional wall motion abnormalities. The reported LVEF is 59%. Impression: 1. There is no evidence of significant ischemia or infarction. 2. Estimated ejection fraction is 59%. This note was generated with Zentila[employer] software. It may contain incorrect words, spelling, and punctuation that were not noted in checking the note before signing.
== END 2023-03-10 23:59 | disposition home or self-care (01) ==
PROVIDERS: PCP Family Medicine Geriatric Medicine; Referring Provider Family Medicine Geriatric Medicine; Visit Provider Family Medicine Geriatric Medicine
DX: Z01.810 Encounter for preprocedural cardiovascular examination (principal); I49.1 Atrial premature depolarization
CPT/HCPCS: 78452; 93017; A9500; A4216; J2785

== ENCOUNTER 2023-03-24 05:52 | Day surgery (SDC) | payer MEDICARE, SELFPAY ==
[2023-03-24 06:39] VITALS: BP 152/92; PULSE 63; RESP 18; TEMP 36.7; O2SAT 97; BMI 34.7
[2023-03-24] MEDS: Lactated Ringers 1,000 ML 15 ML IV (06:47)
--- NOTE | 2023-03-24 07:23 | HP.PCM_ITS ---
History and Physical Date of Admission: 03/24/23 [facility] [id number] [place] [address] OFFICE VISIT Date of Service: 02/13/23 MR#: [id number] Acct: [id number] Name: CELIA BARNARD Rep #: [id number] : 1940 Provider: Dr. Garfield Montalvo DO Age/Sex: 82/M Location: [email or web address] Status: Signed Intake Vital Signs 01/12/2313:32 Height 6 ft Weight: 257 lb BMI 34.8 BP 156/66 H Blood Pressure Location Lt brachial Position Sitting Respiration 15 Pulse 62 Pulse Source Monitor Temp 97.8 F Pulse Oximetry (%) 100 Oxygen Delivery Method room air Intake Visit Reasons: LEFT ELBOW, WRIST Chief Complaint: left elbow and wrist pain Is patient in pain?: Yes (left wrist) Pain scale (1-10): 1 Allergies No Known Allergies Allergy (Verified 02/13/23 09:34) Medications finasteride 5 mg tablet (Proscar) 5 mg PO QHS 08/22/13 [History Confirmed 01/12/23] hydroxychloroquine 200 mg tablet (Plaquenil) 200 mg PO BID 02/25/19 [History Confirmed 01/12/23] omeprazole 10 mg capsule,delayed release 10 mg PO DAILY pre op 02/25/19 [History Confirmed 01/12/23] pioglitazone 30 mg tablet (Actos) 30 mg PO QHS 01/02/20 [History Confirmed 01/12/23] Vitamin D3 1,000 unit PO DAILY 01/03/20 [History Confirmed 01/12/23] benazepril 5 mg tablet 10 mg PO QHS 10/25/20 [History Confirmed 01/12/23] insulin glargine 100 unit-lixisenatide 33 mcg/mL subcutaneous pen (Soliqua 100/33) 15 unit subcut QAM 01/03/21 [History Confirmed 01/12/23] prednisone 10 mg tablet 10 mg PO DAILY PRN RHEUMATIOD ARTHRITIS 07/09/21 [History Confirmed 01/12/23] amlodipine 5 mg tablet 5 mg PO 09/08/22 [History Confirmed 01/12/23] leflunomide 20 mg tablet (Arava) 20 mg PO DAILY 09/08/22 [History Confirmed 01/12/23] vitamins A,C,T-sbws-selrtr 4,296 mcg-226 mg-90 mg capsule (PreserVision AREDS) 1 cap PO BID 09/08/22 [History Confirmed 01/12/23] ferrous fumarate 200 mg (65 mg iron)-vit C 25 mg tablet,extend release (Ana- Sequels (iron-vit c)) 1 tab PO DAILY 01/12/23 [History Confirmed 01/12/23] [facility] Medical History Ambulates with cane Anemia Anemia Arthritis BPH (benign prostatic hyperplasia) Bruising Cardiology follow-up encounter Chronic kidney disease (CKD) Chronic kidney disease, stage III (moderate) Diabetes Discoloration of skin Easy bruising Essential hypertension Former smoker Gastric reflux GERD (gastroesophageal reflux disease) History of atrial fibrillation History of echocardiogram History of pain when walking History of steroid therapy History of stress test Hyperlipidemia Hypertension Injury of head and neck Insulin dependent diabetes mellitus Loss of hearing Macular degeneration New onset atrial fibrillation (02/2019) Obesity Osteoarthritis Restless legs Rheumatoid arthritis Sciatica Subdural hematoma (2013) Type 2 diabetes mellitus without complication Vitamin B 12 deficiency Wears glasses Wears hearing aid Surgical History History of surgery on arm History of total left hip replacement History of vocal cord polypectomy Hx of decompression of ulnar nerve Family History Father CAD (coronary artery disease) Parkinson diseaseMother Cancer Social History Smoking Status: Former smoker alcohol intake: never what type of physical activity do you participate in: walking frequency: daily HPI LEFT ELBOW, WRIST Chief Complaint: left wrist and elbow pain Details: Parts of this documentation were recorded by a scribe, this documentation accurately reflects the service provided and the decisions made by me, Dr. Garfield Montalvo, 02/13/23 [id number]. CELIA BARNARD is a 82 year old M here today for left hand numbness and pain. Pt. advises he has been experiencing left wrist pain for 2-3 years. He states his elbow is not painful but his wrist is painful especially at night when his pain increases and it aches. He is also experiencing tingling in his left hand all fingers. He has known carpal tunnel and cubital tunnel he did have an EMG which demonstrated this in the past we have treated him in the past with steroid injections which have taken away his pain and symptoms temporarily he is happy with his surgery on his right upper extremity although it did take an extended period to get near full relief. He does have rheumatoid arthritis and does take prednisone which seems to help with this. Pt. has had previous steroid injections which have been helpful in the past for 2-3 months. He is now ready to pursue surgery. Ortho Exam General General: Yes no acute distress Neurologic: Yes alert Psychologic: Yes reasonable and appropriate Left Wrist/Hand Skin/Wound: Yes CDI, Yes capillary refill normal and No erythema Left Wrist: Yes Thenar Atrophy and Yes Hypothenar Atrophy; No Durken's Test, No Tinel's and No Phalen's WRIST: numbness and tinlging are present at baseline therefore provocative maneuvers are not amplifying symptoms that are already present, Left Elbow Test: No Tinel's ROM: Yes Extension 0 (-30), Supination 0-90 (80) and Pronation 0-80 Head: Normocephalic Atraumatic Chest: symmetrical rise, non-labored breathing, no audible wheeze Abdomen: no guarding, non-rigid Supplemental Info 12/10/2021 surgery: Right open carpal tunnel release, right cubital tunnel release 04/08/2021 EMG nerve conduction study bilateral upper extremity:1.) Left median neuropathy across the wrist. The pathology is predominantly demyelinating with some evidence of chronic axonal injury. These findings would be compatible with the clinical diagnosis of carpal tunnel syndrome. 2.) Severe, non-localizable right median neuropathy with active denervation of the thenar muscles. The abnormal median motor nerve conduction and lack of involvement of the flexor carpi radialis on needle EMG would implicate a lesion at the wrist. However, a more proximal lesion with preferential fascicular involvement cannot be exclu ded. Ultrasound of the right wrist could be considered for further localization and characterization of the pathology. 3. Chronic, bilateral ulnar neuropathies across the elbow. There is no active denervation to suggest ongoing axonal injury. 02/19/2021 surgery: Left total hip arthroplasty Coding Level of Care Code Off vis,est,level 3 Diagnoses Left carpal tunnel syndrome G56.02 Cubital tunnel syndrome on left G56.22 Assessment and Plan Assessment and Plan (1) Left carpal tunnel syndrome: Status: Acute (2) Cubital tunnel syndrome on left: Status: Acute Plan Discussed conservative and surgical measures again. Patient has had benefit from injections EMGs in the past demonstrated cubital and carpal tunnel. Risk and benefits of surgery reviewed including risk of bleeding infection nerve artery tissue damage need for further surgery continued pain continued symptoms expected postoperative care also possibility of ulnar nerve transposition if the ulnar nerve becomes unstable in the cubital groove after decompression which would affect his postoperative restrictions and recovery, in addition to risk of swelling which was can result in stiffness he already has stiffness of his elbow. Patient would like to go ahead with the surgery. Follow up in after surgery or sooner if pain, swelling, numbness or associated symptoms, or concerns develop. All questions answered. Patient in agreement of plan. Tentative surgery date March 24, 2023 Plan Details Goals & Barriers: Goals Decrease pain Decrease radiculopathy Improve ability to walk Improve posture Barriers RA DISH 02/13/23 0954 <Electronically signed by Garfield Montalvo DO> Date Garfield Montalvo DO Cosigner Signature: Date (if applicable) CC: ~ I have examined the patient and the H&P has been reviewed. There are no clinical changes since date of exam.
[2023-03-24] MEDS: Cefazolin 2 GM in 0.9% Normal Saline (100mL Bag) 100 ML IV (07:39)
[2023-03-24 07:46] LABS: Bedside Glucose 208 mg/dL (74-106)
[2023-03-24] MEDS: Lidocaine 1%/Epi 1:200 (30ml) 30 ML AMPUL (08:40)
--- NOTE | 2023-03-24 08:59 | PCM.OP.BLANK ---
Operative Report Date of Procedure: 03/24/23 Preoperative diagnosis; left carpal tunnel and left cubital tunnel Postoperative diagnosis; same Procedure: 1. Left open carpal tunnel release 2. Left ulnar nerve decompression Anesthesia: General Complications: None Indication for procedure; 82-year-old male with long-standing symptoms consistent with carpal tunnel and cubital tunnel syndrome the patient did have electrodiagnostic evidence of this and has failed conservative treatment. Risks benefits and alternatives were reviewed including risks of bleeding infection nerve artery tissue damage need for further surgery and continued pain and symptoms, hypersensitivity to scar and Pillar pain. Procedure: cubital tunnel : the patient was met in the preoperative holding area the operative extremity was identified by both patient and physician and was marked the patient was met by anesthesia and brought back to the operating room and transferred to the operating table in the supine position. Aanesthesia was started. A well-padded tourniquet was placed on the operative upper extremity. The patient was prepped and draped in the usual sterile fashion. A timeout was called to ensure the proper patient procedure and extremity were being contemplated. An Esmarch was used to exsanguinate the extremity. The tourniquet was inflated to 250 mmHg. First we turned our attention to the elbow made a curvilinear skin incision over the path of the ulnar nerve dissection was carried down as full-thickness flaps electrocautery was used until the fascia over the ulnar nerve was reached the nerve was then identified proximally and Vesseloops were placed around it and careful dissection to free it from the surrounding soft tissue was performed until its distal extent splitting of the 2 heads of the FCU nerve was mobilized and proximally up to the medial intermuscular septum and there was no further constrictions proximally. The release was carried out on the dorsal side of the tunnel and when the elbow was brought through range of motion there was no subluxation appreciated the wound was thoroughly irrigated and closed with 3-0 Vicryl subcutaneous stitches and 3-0 Prolene vertical mattress and interrupted stitches. Steri-Strips and Xeroform. Carpal tunnel :A midline incision was made with a 15 blade scalpel between the thenar and hypothenar eminence. This was carried down through the skin and subcutaneous tissue. Sourav retractors were then used, a deep blade scalpel was used to make a deep incision in the palmar aponeurosis. The sourav retractors were then placed deep to this and the transverse carpal ligament was identified a perforation was made with a scalpel and a Littler scissors were used to complete the release of the transverse carpal ligament distally under direct visualization with the tips facing ulnarly until the perivascular fat was reached. Then turning our attention proximally using a tension slide technique the proximal extent of the transverse carpal ligament was released . There was noted to be hourglass configuration to the median nerve and hypertrophy of the transverse carpal ligament without other findings. The wound was thoroughly irrigated and was closed with 4-0 prolene vertical mattress stitches. Dressing was applied in the form of xeroform 4 x 4, web roll and an sanaz wrap from the hand to the axilla.. Tourniquet was let down there is no intraoperative complications patient tolerated the procedure well and was transferred to the PACU. All counts were correct.
--- NOTE | 2023-03-24 09:00 | DCINST_ITS ---
Discharge Instructions Diet Discharge Diet: No restrictions Dressing / Incision Call your doctor if you observe: Shortness of breath and Chest pain Additional Dressing/Incision Instructions:: Encourage elbow wrist and finger range of motion immediately. Do not lift push or pull with operative extremity more than 1/2 pound. Leave dressing on clean and dry for 72 hours. Then may remove and begin showering with antibacterial soap. Do not submerge completely as in tub pool or pond for 3 weeks postop. May cover with large Band-Aid to avoid stitch irritation. Follow-up in 2 weeks call with any questions or concerns. Follow Up Care Please Follow Up With: Garfield Montalvo DO When: 2 weeks Test Results: Test results from this visit will be discussed in further detail at your follow- up appointment, if applicable. Discharge Plan Admission Primary Reason for Your Visit: Left cubital tunnel carpal tunnel release Attending Provider: Garfield Montalvo Primary Care Provider: Franky Craig Chi Discharge Orders/Prescriptions Prescriptions: New oxycodone 5 mg tablet 2.5 - 10 mg PO Q4H PRN (Reason: pain) 3 Days Qty: 10 0RF Continued omeprazole 10 mg capsule,delayed release(DR/EC) 10 mg PO DAILY hydroxychloroquine [Plaquenil] 200 mg tablet 200 mg PO BID Soliqua 100/33 100 unit-33 mcg/mL insulin pen 5 unit subcut QAM prednisone 10 mg tablet 10 mg PO DAILY PRN (Reason: RHEUMATIOD ARTHRITIS) Ana-Sequels (iron-vit c) 200 mg (65 mg iron)-25 mg tablet extended release 1 tab PO DAILY amlodipine 5 mg tablet 5 mg PO QHS Patient Comments: take 1 tablet by mouth once daily leflunomide [Arava] 20 mg tablet 20 mg PO DAILY PreserVision AREDS 4,296 mcg-226 mg-90 mg capsule 1 cap PO BID finasteride [Proscar] 5 MG tablet 5 mg PO QHS pioglitazone [Actos] 30 MG tablet 30 mg PO QHS Vitamin D3 1,000 unit PO DAILY benazepril 5 mg tablet 10 mg PO QHS Referrals / Follow Up: Franky Craig Chi, MD [Primary Care Provider] - Disposition Disposition (needs filled in before D/C Order can be placed): Home, Self Care
[2023-03-24 09:01] VITALS: BP 136/66; BP 152/92; PULSE 56; RESP 16; TEMP 36.4; O2SAT 97
[2023-03-24 09:15] VITALS: BP 113/93; BP 152/92; PULSE 56; RESP 16; O2SAT 98
[2023-03-24 09:29] VITALS: BP 139/67; BP 152/92; PULSE 56; RESP 16; TEMP 36.4; O2SAT 96
[2023-03-24 09:59] VITALS: BP 152/92
== END 2023-03-24 10:10 | disposition home or self-care (01) ==
LOC: SDC 05:53 → AC 05:56
PROVIDERS: PCP Family Medicine Geriatric Medicine; Referring Provider Orthopaedic Surgery; Visit Provider Orthopaedic Surgery
PROC: (CPT 64721; principal; 2023-03-24 07:15)
DX: G56.02 Carpal tunnel syndrome, left upper limb (principal); M06.9 Rheumatoid arthritis, unspecified; E11.22 Type 2 diabetes mellitus with diabetic chronic kidney disease; Z79.4 Long term (current) use of insulin; N18.30 Chronic kidney disease, stage 3 unspecified; G56.22 Lesion of ulnar nerve, left upper limb; I12.9 Hypertensive chronic kidney disease with stage 1 through stage 4 chronic kidney disease, or unspecified chronic kidney disease; Z96.642 Presence of left artificial hip joint; M99.03 Segmental and somatic dysfunction of lumbar region; M99.05 Segmental and somatic dysfunction of pelvic region; D64.9 Anemia, unspecified; K21.9 Gastro-esophageal reflux disease without esophagitis; N40.0 Benign prostatic hyperplasia without lower urinary tract symptoms; Z79.899 Other long term (current) drug therapy; Z87.891 Personal history of nicotine dependence
CPT/HCPCS: 64721; 64718; 01810; 82962; J7120; J2405

== ENCOUNTER → 2023-03-30 | Outpatient (CLI) | payer MEDICARE, SELFPAY ==
[2023-03-30 15:20] LABS: Absolute Lymphocyte Count 1.67 X10^3/uL (0.83-4.51); Absolute Neutrophil Count 3.7 X10^3/uL (2.0-7.7); Basophil# 0.11 X10^3/uL; Basophil% 1.7 % (0-1); Eosinophil# 0.17 X10^3/uL; Eosinophils% 2.7 % (0-5); Hemoglobin 10.4 g/dL (13.0-16.5); Lymphocyte # 1.67 X10^3/ul (0.83-4.51); Lymphocyte % 26.2 % (19-41); Mean Corp Hgb Conc 31.5 g/dL (32-36); Mean Corpuscular Hgb 29.5 pg (27.0-32.0); Mean Corpuscular Volume 93.5 fL (80-94); Mean Platelet Vol. 11.7 fl (6.2-12.0); Monocyte# 0.71 X10^3/uL; Monocyte% 11.1 % (0-10); NRBC Flagged by Analyzer 0 % (0-5); Neutrophil # 3.69 X10^3/uL (2.7-7.7); Platelet Count 140 K/mm3 (150-450); RBC Distribution Width CV 15.9 % (11.6-14.6); RBC Distribution Width SD 53.8 fl (35.1-43.9); Red Blood Count 3.53 M/mm3 (4.6-6.2); White Blood Count 6.4 K/mm3 (4.4-11.0)
[2023-03-30 15:51] LABS: ALB/GLOB Ratio 1.1 RATIO (0.9-2.4); AST(SGOT) 25 U/L (15-37); Alanine Aminotransfer ALT/SGPT 24 U/L (16-61); Albumin, Serum 3.6 g/dL (3.2-5.0); Alkaline Phosphatase 73 U/L (45-117); Anion Gap 7 (5-15); BUN 26 mg/dL (7-18); BUN/Creat Ratio 20.6 RATIO (10-20); Calcium,Total 8.1 mg/dL (8.5-10.1); Chloride 108 mmol/L (98-107); Creatinine, Serum 1.26 mg/dL (0.70-1.30); EST Glomerular Filtration Rate 58 mL/min (>60); Est Glom Filt Rate - Afr Amer 71 mL/min (>60); Globulin 3.4 g/dL (2.2-4.2); Glucose 160 mg/dL (74-106); Potassium 3.9 mmol/L (3.5-5.1); Sodium Level 138 mmol/L (136-145)
== END | disposition home or self-care (01) ==
LOC: MTLAB 11:11
PROVIDERS: PCP Family Medicine Geriatric Medicine; Referring Provider Internal Medicine Rheumatology; Visit Provider Internal Medicine Rheumatology
DX: M06.4 Inflammatory polyarthropathy (principal); G56.03 Carpal tunnel syndrome, bilateral upper limbs; Z79.899 Other long term (current) drug therapy
CPT/HCPCS: 36415; 80053; 85025

== ENCOUNTER → 2023-06-29 | Outpatient (CLI) | payer MEDICARE, SELFPAY ==
[2023-06-29 12:27] LABS: Absolute Lymphocyte Count 1.98 X10^3/uL (0.83-4.51); Absolute Neutrophil Count 3.5 X10^3/uL (2.0-7.7); Basophil% 1.6 % (0-1); Eosinophil# 0.17 X10^3/uL; Eosinophils% 2.6 % (0-5); Hematocrit 33.4 % (40-54); Hemoglobin 10.7 g/dL (13.0-16.5); Lymphocyte # 1.98 X10^3/ul (0.83-4.51); Lymphocyte % 30.7 % (19-41); Mean Corpuscular Hgb 28.9 pg (27.0-32.0); Mean Corpuscular Volume 90.3 fL (80-94); Mean Platelet Vol. 11.9 fl (6.2-12.0); Monocyte# 0.72 X10^3/uL; Monocyte% 11.2 % (0-10); NRBC Flagged by Analyzer 0 % (0-5); Neutrophil # 3.45 X10^3/uL (2.7-7.7); Neutrophil % 53.6 % (47-70); Platelet Count 153 K/mm3 (150-450); RBC Distribution Width CV 16.8 % (11.6-14.6); RBC Distribution Width SD 55.6 fl (35.1-43.9); White Blood Count 6.4 K/mm3 (4.4-11.0)
[2023-06-29 13:30] LABS: ALB/GLOB Ratio 1.1 RATIO (0.9-2.4); AST(SGOT) 21 U/L (15-37); Alanine Aminotransfer ALT/SGPT 18 U/L (16-61); Albumin, Serum 3.8 g/dL (3.2-5.0); Alkaline Phosphatase 78 U/L (45-117); Anion Gap 5 (5-15); BUN 24 mg/dL (7-18); BUN/Creat Ratio 19.7 RATIO (10-20); Calcium,Total 8.9 mg/dL (8.5-10.1); Chloride 109 mmol/L (98-107); Creatinine, Serum 1.22 mg/dL (0.70-1.30); EST Glomerular Filtration Rate 60 mL/min (>60); Est Glom Filt Rate - Afr Amer 73 mL/min (>60); Globulin 3.4 g/dL (2.2-4.2); Glucose 132 mg/dL (74-106); Potassium 4.1 mmol/L (3.5-5.1); Protein, Total 7.2 g/dL (6.4-8.2); Sodium Level 137 mmol/L (136-145)
== END | disposition home or self-care (01) ==
PROVIDERS: PCP Family Medicine Geriatric Medicine; Referring Provider Internal Medicine Rheumatology; Visit Provider Internal Medicine Rheumatology
DX: M06.4 Inflammatory polyarthropathy (principal); Z79.899 Other long term (current) drug therapy
CPT/HCPCS: 36415; 80053; 85025

== ENCOUNTER → 2023-07-22 | Outpatient (CLI) | payer MEDICARE, SELFPAY ==
[2023-07-22 11:09] LABS: Absolute Lymphocyte Count 1.51 X10^3/uL (0.83-4.51); Absolute Neutrophil Count 3.3 X10^3/uL (2.0-7.7); Basophil# 0.09 X10^3/uL; Basophil% 1.5 % (0-1); Eosinophil# 0.21 X10^3/uL; Eosinophils% 3.6 % (0-5); Hematocrit 31.5 % (40-54); Hemoglobin 10.2 g/dL (13.0-16.5); Lymphocyte # 1.51 X10^3/ul (0.83-4.51); Lymphocyte % 25.9 % (19-41); Mean Corp Hgb Conc 32.4 g/dL (32-36); Mean Corpuscular Hgb 28.7 pg (27.0-32.0); Mean Corpuscular Volume 88.7 fL (80-94); Mean Platelet Vol. 12.1 fl (6.2-12.0); Monocyte# 0.67 X10^3/uL; Monocyte% 11.5 % (0-10); NRBC Flagged by Analyzer 0 % (0-5); Neutrophil # 3.33 X10^3/uL (2.7-7.7); Platelet Count 166 K/mm3 (150-450); RBC Distribution Width CV 17.1 % (11.6-14.6); RBC Distribution Width SD 55.3 fl (35.1-43.9); Red Blood Count 3.55 M/mm3 (4.6-6.2); White Blood Count 5.8 K/mm3 (4.4-11.0)
[2023-07-22 11:27] LABS: Vitamin D,25 Hydroxy 39.4 ng/mL
[2023-07-22 11:31] LABS: AST(SGOT) 21 U/L (15-37); Alanine Aminotransfer ALT/SGPT 23 U/L (16-61); Albumin, Serum 3.6 g/dL (3.2-5.0); Alkaline Phosphatase 76 U/L (45-117); Anion Gap 7 (5-15); BUN 21 mg/dL (7-18); BUN/Creat Ratio 17.4 RATIO (10-20); Calcium,Total 8.6 mg/dL (8.5-10.1); Chloride 110 mmol/L (98-107); Creatinine, Serum 1.21 mg/dL (0.70-1.30); EST Glomerular Filtration Rate 61 mL/min (>60); Est Glom Filt Rate - Afr Amer 74 mL/min (>60); Globulin 3.5 g/dL (2.2-4.2); Glucose 112 mg/dL (74-106); Potassium 4.1 mmol/L (3.5-5.1); Protein, Total 7.1 g/dL (6.4-8.2); Sodium Level 142 mmol/L (136-145); Thyroid Stim Hormone (TSH) 1.23 uIU/mL (0.358-3.74)
== END | disposition home or self-care (01) ==
LOC: POLAB3 10:15
PROVIDERS: PCP Family Medicine Geriatric Medicine; Visit Provider Family Medicine Geriatric Medicine
DX: I10 Essential (primary) hypertension (principal); E11.65 Type 2 diabetes mellitus with hyperglycemia; E55.9 Vitamin D deficiency, unspecified
CPT/HCPCS: 36415; 80053; 82306; 84443; 85025

== ENCOUNTER → 2023-09-30 | Outpatient (CLI) | payer MEDICARE, SELFPAY ==
[2023-09-30 12:38] LABS: Absolute Neutrophil Count 3.8 X10^3/uL (2.0-7.7); Basophil# 0.12 X10^3/uL; Basophil% 1.8 % (0-1); Eosinophils% 3.1 % (0-5); Hematocrit 34.5 % (40-54); Hemoglobin 11.1 g/dL (13.0-16.5); Lymphocyte % 24.6 % (19-41); Mean Corp Hgb Conc 32.2 g/dL (32-36); Mean Corpuscular Hgb 29.4 pg (27.0-32.0); Mean Corpuscular Volume 91.5 fL (80-94); Mean Platelet Vol. 12.4 fl (6.2-12.0); Monocyte% 12.3 % (0-10); NRBC Flagged by Analyzer 0 % (0-5); Neutrophil # 3.76 X10^3/uL (2.7-7.7); Neutrophil % 57.7 % (47-70); Platelet Count 151 K/mm3 (150-450); RBC Distribution Width SD 56.4 fl (35.1-43.9); Red Blood Count 3.77 M/mm3 (4.6-6.2); White Blood Count 6.5 K/mm3 (4.4-11.0)
[2023-09-30 12:55] LABS: AST(SGOT) 23 U/L (15-37); Alanine Aminotransfer ALT/SGPT 22 U/L (16-61); Albumin, Serum 3.8 g/dL (3.2-5.0); Alkaline Phosphatase 83 U/L (45-117); Anion Gap 6 (5-15); BUN 23 mg/dL (7-18); Chloride 108 mmol/L (98-107); Creatinine, Serum 1.21 mg/dL (0.70-1.30); EST Glomerular Filtration Rate 61 mL/min (>60); Est Glom Filt Rate - Afr Amer 74 mL/min (>60); Globulin 3.8 g/dL (2.2-4.2); Glucose 116 mg/dL (74-106); Potassium 4.1 mmol/L (3.5-5.1); Protein, Total 7.6 g/dL (6.4-8.2); Sodium Level 138 mmol/L (136-145)
== END | disposition home or self-care (01) ==
LOC: MTLAB 11:10
PROVIDERS: PCP Family Medicine Geriatric Medicine; Referring Provider Internal Medicine Rheumatology; Visit Provider Internal Medicine Rheumatology
DX: M06.4 Inflammatory polyarthropathy (principal); G56.03 Carpal tunnel syndrome, bilateral upper limbs; Z79.899 Other long term (current) drug therapy
CPT/HCPCS: 36415; 80053; 85025

== ENCOUNTER 2023-12-10 12:50 | Outpatient (CLI) | payer MEDICARE, SELFPAY ==
[2023-12-10] MEDS: 0.9% Normal Saline (1000mL) 1,000 ML 999 ML IV ×2 (13:08→14:16)
[2023-12-10 13:16] VITALS: BP 155/63; PULSE 75; RESP 16; TEMP 36.2; O2SAT 97; BMI 32.8
[2023-12-10] MEDS: 0.9% NaCl Peripheral Flush Adult/Peds IV (13:22)
[2023-12-10 15:29] VITALS: BP 185/74; PULSE 64; RESP 16
--- NOTE | 2023-12-10 15:51 | US_ITS ---
STUDY: RENAL ULTRASOUND - COMPLETE REASON FOR EXAM: Male, 83 years old. CKD 3 TECHNIQUE: Ultrasound evaluation of the kidneys was performed with real-time and static christy-scale imaging. COMPARISON: None. FINDINGS: RIGHT KIDNEY: Normal location of the right kidney, which is normal in size. The right kidney measures 12.1 x 6.1 x 6.5 cm. There is a normal cortex of the right kidney. The renal cortex measures 1.2 cm. There is no right renal mass or cyst. There are no right renal calculi. There is no right hydronephrosis. DISTAL RIGHT URETER: There is non-visualization of the distal right ureter. There is no demonstrated right ureterovesical junction calculus. There is a visualized right ureteral jet. LEFT KIDNEY: Normal location of the left kidney, which is normal in size. The left kidney measures 12.8 x 5.1 x 5.6 cm. There is a normal cortex of the left kidney. The renal cortex measures 1.4 cm. There is no left renal mass or cyst. There are no left renal calculi. There is mild hydronephrosis of the left kidney. DISTAL LEFT URETER: There is non-visualization of the distal left ureter. There is no demonstrated left ureterovesical junction calculus. There is a visualized left ureteral jet. BLADDER: The distended urinary bladder has a volume of 262.6 ml. There is no demonstrated mass within the urinary bladder. There are no demonstrated bladder calculi. Images of the bladder shows moderate trabeculation and circumferential thickening of the bladder wall with the apex of the prostate gland herniated into the trigone, causing some degree of bladder outlet obstruction or chronic cystitis. The prostate gland is enlarged with 4.27 cm of the gland herniated into the bladder lumen. The remaining aspects of the prostate gland not visualized on this study. Images of the right upper quadrant reveal multiple gallstones. US/Kidney and Bladder IMPRESSION: 1. Images of the bladder shows moderate trabeculation and circumferential thickening of the bladder wall with the apex of the prostate gland herniated into the trigone, causing some degree of bladder outlet obstruction or chronic cystitis. The prostate gland is enlarged with 4.27 cm of the gland herniated into the bladder lumen. The remaining aspects of the prostate gland not visualized on this study. 2. Mild left hydronephrosis. 3. Multiple gallstones Electronically Signed: Braden Rae MD at 17:29 EDT ,
--- NOTE | 2023-12-10 16:15 | RAD_ITS ---
STUDY: X-RAY - ABDOMEN/PELVIS REASON FOR EXAM: Male, 83 years old. Diarrhea. TECHNIQUE: AP supine and upright views of the abdomen and pelvis on 5 images. COMPARISON: None. FINDINGS: Bibasilar atelectasis/scarring in the lung apices. Mild gaseous distention of jejunum in the mid upper abdomen with air seen to the rectum. Moderate to marked amount of feces in colon obscuring much of the intra-abdominal outlines. The visualized liver, spleen and kidneys are grossly normal in size and morphology. Normal soft tissue structures. Osteopenia with moderate lower lumbosacral spondylosis, moderate arthrosis of the right hip and left total hip arthroplasty. RAD/Abd Inc Decub and/or Erect IMPRESSION: Mild gaseous distention of jejunum in the upper midabdomen with no other Significant abnormality. Electronically Signed: Travis Crowder MD at 10:15 EDT ,
--- NOTE | 2023-12-10 16:15 | RAD_ITS ---
STUDY: X-RAY CHEST REASON FOR EXAM: Male, 83 years old. Shortness of breath. TECHNIQUE: Frontal and lateral views of the chest. COMPARISON: May 25, 2019 FINDINGS: Stable mild hyperinflation. There is no demonstrated pleural abnormality. Cardiomegaly unchanged. Normal mediastinum and indira. Normal visualized pulmonary arteries. Stable aortic tortuosity. Thoracic osteopenia with moderate to marked thoracic spondylosis, unaltered. Normal visualized ribs, clavicles, and shoulders. No abnormality of the visualized soft tissue structures of the upper abdomen. RAD/Chest PA and Lateral IMPRESSION: Stable cardiomegaly with hyperinflation and no acute or active cardiopulmonary disease. Electronically Signed: Travis Crowder MD at 10:16 EDT ,
== END 2023-12-10 23:59 | disposition home or self-care (01) ==
PROVIDERS: PCP Family Medicine Geriatric Medicine; Referring Provider Family Medicine Geriatric Medicine; Visit Provider Family Medicine Geriatric Medicine
DX: E86.0 Dehydration (principal); N18.31 Chronic kidney disease, stage 3a; R06.02 Shortness of breath; R19.7 Diarrhea, unspecified; N39.0 Urinary tract infection, site not specified; I12.9 Hypertensive chronic kidney disease with stage 1 through stage 4 chronic kidney disease, or unspecified chronic kidney disease; R53.83 Other fatigue
CPT/HCPCS: 96360; 96361; 36415; 71046; 74019; 76770; 80053; 83880; 84443; 85025; 85379; 87086; J7030; A4216

== ENCOUNTER → 2023-12-10 | Outpatient (CLI) | payer MEDICARE, SELFPAY ==
[2023-12-10 13:24] LABS: Absolute Neutrophil Count 6.2 X10^3/uL (2.0-7.7); Basophil% 1.2 % (0-1); Eosinophil# 0.16 X10^3/uL; Eosinophils% 1.9 % (0-5); Mean Corp Hgb Conc 32.1 g/dL (32-36); Mean Corpuscular Hgb 28.8 pg (27.0-32.0); Mean Corpuscular Volume 89.7 fL (80-94); Mean Platelet Vol. 11.9 fl (6.2-12.0); Monocyte# 0.86 X10^3/uL; NRBC Flagged by Analyzer 0 % (0-5); Neutrophil # 6.18 X10^3/uL (2.7-7.7); Neutrophil % 71.4 % (47-70); Platelet Count 146 K/mm3 (150-450); RBC Distribution Width CV 16.1 % (11.6-14.6); RBC Distribution Width SD 52.5 fl (35.1-43.9); Red Blood Count 3.12 M/mm3 (4.6-6.2); White Blood Count 8.6 K/mm3 (4.4-11.0)
[2023-12-10 13:43] LABS: BNP,B-Type NATRIURETIC PEPTIDE 275.7 pg/mL (0-100)
[2023-12-10 13:56] LABS: ALB/GLOB Ratio 0.9 RATIO (0.9-2.4); AST(SGOT) 19 U/L (15-37); Alanine Aminotransfer ALT/SGPT 19 U/L (16-61); Albumin, Serum 3.4 g/dL (3.2-5.0); Alkaline Phosphatase 83 U/L (45-117); Anion Gap 6 (5-15); BUN 34 mg/dL (7-18); BUN/Creat Ratio 15.1 RATIO (10-20); Calcium,Total 8.5 mg/dL (8.5-10.1); Chloride 112 mmol/L (98-107); Creatinine, Serum 2.25 mg/dL (0.70-1.30); EST Glomerular Filtration Rate 30 mL/min (>60); Est Glom Filt Rate - Afr Amer 36 mL/min (>60); Globulin 3.9 g/dL (2.2-4.2); Glucose 119 mg/dL (74-106); Potassium 4.4 mmol/L (3.5-5.1); Protein, Total 7.3 g/dL (6.4-8.2); Sodium Level 138 mmol/L (136-145); Thyroid Stim Hormone (TSH) 0.87 uIU/mL (0.358-3.74)
[2023-12-10 14:17] LABS: D-Dimer Quantitative (DVT/PE) 0.59 FEU/ug/m (0.27-0.49)
== END | disposition home or self-care (01) ==
PROVIDERS: PCP Family Medicine Geriatric Medicine; Visit Provider Family Medicine Geriatric Medicine
DX: N39.0 Urinary tract infection, site not specified (principal); I10 Essential (primary) hypertension; R53.83 Other fatigue; R06.02 Shortness of breath
CPT/HCPCS: 36415; 80053; 83880; 84443; 85025; 85379; 87077; 87086; 87088; 87186

== ENCOUNTER → 2023-12-10 | Outpatient (CLI) | payer MEDICARE, SELFPAY | END | disposition home or self-care (01) | LOC: US 15:47 | PROVIDERS: PCP Family Medicine Geriatric Medicine; Referring Provider Family Medicine Geriatric Medicine; Visit Provider Family Medicine Geriatric Medicine | DX: R06.02 Shortness of breath (principal); N18.31 Chronic kidney disease, stage 3a; R19.7 Diarrhea, unspecified ==

== ENCOUNTER → 2023-12-11 | Outpatient (CLI) | payer MEDICARE, SELFPAY ==
[2023-12-11 12:53] LABS: Absolute Neutrophil Count 5.9 X10^3/uL (2.0-7.7); Basophil# 0.09 X10^3/uL; Basophil% 1.1 % (0-1); Eosinophils% 2.4 % (0-5); Hematocrit 26.5 % (40-54); Hemoglobin 8.6 g/dL (13.0-16.5); Lymphocyte % 14.6 % (19-41); Mean Corp Hgb Conc 32.5 g/dL (32-36); Mean Corpuscular Hgb 29.2 pg (27.0-32.0); Mean Corpuscular Volume 89.8 fL (80-94); Mean Platelet Vol. 11.9 fl (6.2-12.0); Monocyte% 9.7 % (0-10); NRBC Flagged by Analyzer 0 % (0-5); Neutrophil # 5.89 X10^3/uL (2.7-7.7); Neutrophil % 71.8 % (47-70); Platelet Count 138 K/mm3 (150-450); RBC Distribution Width CV 16.2 % (11.6-14.6); RBC Distribution Width SD 53.3 fl (35.1-43.9); Red Blood Count 2.95 M/mm3 (4.6-6.2); White Blood Count 8.2 K/mm3 (4.4-11.0)
[2023-12-11 13:20] LABS: Anion Gap 6 (5-15); BUN 31 mg/dL (7-18); BUN/Creat Ratio 14.2 RATIO (10-20); Calcium,Total 8.4 mg/dL (8.5-10.1); Chloride 115 mmol/L (98-107); Creatinine, Serum 2.19 mg/dL (0.70-1.30); EST Glomerular Filtration Rate 31 mL/min (>60); Est Glom Filt Rate - Afr Amer 37 mL/min (>60); Glucose 120 mg/dL (74-106); Potassium 4.4 mmol/L (3.5-5.1); Sodium Level 139 mmol/L (136-145)
== END | disposition home or self-care (01) ==
LOC: LAB 12:21
PROVIDERS: PCP Family Medicine Geriatric Medicine; Referring Provider Family Medicine Geriatric Medicine; Visit Provider Family Medicine Geriatric Medicine
DX: D50.9 Iron deficiency anemia, unspecified (principal); R53.83 Other fatigue
CPT/HCPCS: 36415; 80048; 85025

== ENCOUNTER → 2023-12-14 | Outpatient (CLI) | payer MEDICARE, SELFPAY ==
[2023-12-14 12:25] LABS: Absolute Lymphocyte Count 1.05 X10^3/uL (0.83-4.51); Absolute Neutrophil Count 5.1 X10^3/uL (2.0-7.7); Basophil# 0.09 X10^3/uL; Basophil% 1.3 % (0-1); Eosinophil# 0.18 X10^3/uL; Eosinophils% 2.5 % (0-5); Hematocrit 26.1 % (40-54); Hemoglobin 8.3 g/dL (13.0-16.5); Lymphocyte # 1.05 X10^3/ul (0.83-4.51); Lymphocyte % 14.7 % (19-41); Mean Corp Hgb Conc 31.8 g/dL (32-36); Mean Corpuscular Hgb 28.8 pg (27.0-32.0); Mean Corpuscular Volume 90.6 fL (80-94); Mean Platelet Vol. 12.1 fl (6.2-12.0); Monocyte# 0.66 X10^3/uL; Monocyte% 9.3 % (0-10); NRBC Flagged by Analyzer 0 % (0-5); Neutrophil # 5.11 X10^3/uL (2.7-7.7); Neutrophil % 71.6 % (47-70); Platelet Count 151 K/mm3 (150-450); RBC Distribution Width CV 16.2 % (11.6-14.6); RBC Distribution Width SD 53.5 fl (35.1-43.9); Red Blood Count 2.88 M/mm3 (4.6-6.2); White Blood Count 7.1 K/mm3 (4.4-11.0)
[2023-12-14 12:49] LABS: Anion Gap 7 (5-15); BUN 38 mg/dL (7-18); BUN/Creat Ratio 17.4 RATIO (10-20); Calcium,Total 8.6 mg/dL (8.5-10.1); Chloride 113 mmol/L (98-107); Creatinine, Serum 2.19 mg/dL (0.70-1.30); EST Glomerular Filtration Rate 31 mL/min (>60); Est Glom Filt Rate - Afr Amer 37 mL/min (>60); Glucose 137 mg/dL (74-106); Sodium Level 138 mmol/L (136-145)
== END | disposition home or self-care (01) ==
LOC: LAB 11:57
PROVIDERS: PCP Family Medicine Geriatric Medicine; Referring Provider Family Medicine Geriatric Medicine; Visit Provider Family Medicine Geriatric Medicine
DX: I10 Essential (primary) hypertension (principal)
CPT/HCPCS: 36415; 80048; 82274; 85025

== ENCOUNTER → 2023-12-18 | Outpatient (CLI) | payer MEDICARE, SELFPAY ==
[2023-12-18 12:58] LABS: Absolute Lymphocyte Count 1.06 X10^3/uL (0.83-4.51); Absolute Neutrophil Count 4.7 X10^3/uL (2.0-7.7); Basophil# 0.07 X10^3/uL; Eosinophil# 0.14 X10^3/uL; Eosinophils% 2.1 % (0-5); Hematocrit 25.9 % (40-54); Hemoglobin 8.2 g/dL (13.0-16.5); Lymphocyte # 1.06 X10^3/ul (0.83-4.51); Lymphocyte % 15.8 % (19-41); Mean Corp Hgb Conc 31.7 g/dL (32-36); Mean Corpuscular Hgb 28.7 pg (27.0-32.0); Mean Corpuscular Volume 90.6 fL (80-94); Mean Platelet Vol. 10.7 fl (6.2-12.0); Monocyte# 0.66 X10^3/uL; Monocyte% 9.8 % (0-10); NRBC Flagged by Analyzer 0 % (0-5); Neutrophil # 4.73 X10^3/uL (2.7-7.7); Neutrophil % 70.6 % (47-70); Platelet Count 168 K/mm3 (150-450); RBC Distribution Width CV 16.1 % (11.6-14.6); RBC Distribution Width SD 53.3 fl (35.1-43.9); Red Blood Count 2.86 M/mm3 (4.6-6.2); White Blood Count 6.7 K/mm3 (4.4-11.0)
[2023-12-18 13:33] LABS: ALB/GLOB Ratio 0.9 RATIO (0.9-2.4); AST(SGOT) 19 U/L (15-37); Alanine Aminotransfer ALT/SGPT 18 U/L (16-61); Albumin, Serum 3.3 g/dL (3.2-5.0); Alkaline Phosphatase 88 U/L (45-117); Anion Gap 7 (5-15); BUN 36 mg/dL (7-18); BUN/Creat Ratio 15.5 RATIO (10-20); Calcium,Total 8.1 mg/dL (8.5-10.1); Chloride 112 mmol/L (98-107); Creatinine, Serum 2.33 mg/dL (0.70-1.30); EST Glomerular Filtration Rate 29 mL/min (>60); Est Glom Filt Rate - Afr Amer 35 mL/min (>60); Globulin 3.8 g/dL (2.2-4.2); Glucose 116 mg/dL (74-106); Potassium 4.1 mmol/L (3.5-5.1); Protein, Total 7.1 g/dL (6.4-8.2); Sodium Level 137 mmol/L (136-145)
== END | disposition home or self-care (01) ==
PROVIDERS: PCP Family Medicine Geriatric Medicine; Referring Provider Family Medicine Geriatric Medicine; Visit Provider Family Medicine Geriatric Medicine
DX: R53.83 Other fatigue (principal); E78.5 Hyperlipidemia, unspecified; N39.0 Urinary tract infection, site not specified
CPT/HCPCS: 36415; 80053; 85025; 87086

== ENCOUNTER → 2023-12-21 | Outpatient (CLI) | payer MEDICARE, SELFPAY ==
--- NOTE | 2023-12-21 11:22 | CT_ITS ---
INDICATION: Unspecified hydronephrosis EXAMINATION: CT ABDOMEN AND PELVIS WITHOUT CONTRAST - CT Abdomen And Pelvis W/O Contrast Injection TECHNIQUE: Helically acquired images were obtained of the abdomen and pelvis without oral or IV contrast. The protocol utilizes one or more of the following dose reduction techniques: automated exposure control, adjustment of mA and/or kV according to patient size,and/or use of iterative reconstruction technique. IV Contrast dosage and agent: None. Oral contrast: None. RADIATION DOSAGE (If Supplied By Facility): CTDIvol = ( 21.03 ) mGy, DLP = ( 1140.42 ) mGycm COMPARISON: Ultrasound dated December 10, 2023 FINDINGS: LOWER CHEST: Lung bases are clear. There is cardiomegaly. The lack of intravenous contrast limits evaluation of solid visceral organs. LIVER: Homogeneous. No focal mass. GALLBLADDER AND BILIARY TREE: There are gallstones within the gallbladder. No gallbladder distension or wall edema. No intra- or extrahepatic biliary ductal dilation. PANCREAS: No focal cystic or solid mass. SPLEEN: Normal size without focal cystic or solid mass. ADRENAL GLANDS: No nodules. KIDNEYS AND URETERS: Normal renal size and position. There is left-sided hydroureteronephrosis. There is circumferential wall thickening of the distal ureter. PERITONEUM: No ascites or free air. No other fluid collection. BOWEL: There is a small hiatal hernia. No evidence of acute appendicitis. No stomach or bowel distension. No focal inflammatory change. LYMPH NODES: No enlarged mesenteric or retroperitoneal lymph nodes. VESSELS: Aorta is non-dilated. URINARY BLADDER: Within the posterior urinary bladder left of midline there is a 3.7 x 3.5 x 3.8 cm mildly high in attenuation filling defect that overlies the left ureteropelvic junction. There is bladder wall thickening and trabeculation with adjacent stranding. REPRODUCTIVE ORGANS: No pelvic masses. ABDOMINAL WALL: No discrete abdominal or pelvic wall hernia. BONES: There is a left total hip arthroplasty creating beam hardening artifact within the pelvis and obscuring anatomic detail. There are degenerative changes of the lumbar spine. CT/Abdomen/Pelvis without Cont IMPRESSION: Left hydroureteronephrosis associated with a 3.7 x 3.5 x 3.8 cm masslike filling defect within the posterior urinary bladder left of midline overlying the ureteropelvic junction concerning for malignancy. Circumferential wall thickening of the left distal ureter, may be secondary to inflammation and/or a neoplastic process. Bladder wall thickening associated with adjacent stranding may reflect cystitis. Bladder trabeculae. Small hiatal hernia. Cholelithiasis. Hiatal hernia. Electronically Signed: Jael Diaz MD at 12:02 EDT ,
[2023-12-21 13:45] LABS: Anion Gap 8 (5-15); BUN 33 mg/dL (7-18); BUN/Creat Ratio 14.9 RATIO (10-20); Calcium,Total 8.4 mg/dL (8.5-10.1); Chloride 115 mmol/L (98-107); Creatinine, Serum 2.22 mg/dL (0.70-1.30); EST Glomerular Filtration Rate 30 mL/min (>60); Est Glom Filt Rate - Afr Amer 37 mL/min (>60); Glucose 128 mg/dL (74-106); Potassium 3.7 mmol/L (3.5-5.1); Sodium Level 139 mmol/L (136-145)
== END | disposition home or self-care (01) ==
PROVIDERS: PCP Family Medicine Geriatric Medicine; Referring Provider Family Medicine Geriatric Medicine; Visit Provider Family Medicine Geriatric Medicine
DX: N13.30 Unspecified hydronephrosis (principal); N40.0 Benign prostatic hyperplasia without lower urinary tract symptoms; N17.9 Acute kidney failure, unspecified; I10 Essential (primary) hypertension
CPT/HCPCS: 36415; 74176; 80048

== ENCOUNTER → 2023-12-22 | Outpatient (CLI) | payer MEDICARE, SELFPAY ==
[2023-12-22 16:02] LABS: ALB/GLOB Ratio 0.9 RATIO (0.9-2.4); AST(SGOT) 21 U/L (15-37); Alanine Aminotransfer ALT/SGPT 21 U/L (16-61); Albumin, Serum 3.4 g/dL (3.2-5.0); Alkaline Phosphatase 85 U/L (45-117); Anion Gap 11 (5-15); BUN 34 mg/dL (7-18); BUN/Creat Ratio 15.5 RATIO (10-20); Calcium,Total 8.6 mg/dL (8.5-10.1); Chloride 113 mmol/L (98-107); Creatinine, Serum 2.19 mg/dL (0.70-1.30); EST Glomerular Filtration Rate 31 mL/min (>60); Est Glom Filt Rate - Afr Amer 37 mL/min (>60); Globulin 3.9 g/dL (2.2-4.2); Glucose 105 mg/dL (74-106); Potassium 3.8 mmol/L (3.5-5.1); Protein, Total 7.3 g/dL (6.4-8.2); Sodium Level 139 mmol/L (136-145)
[2023-12-22 16:17] LABS: Absolute Lymphocyte Count 1.22 X10^3/uL (0.83-4.51); Absolute Neutrophil Count 4.4 X10^3/uL (2.0-7.7); Basophil# 0.09 X10^3/uL; Basophil% 1.3 % (0-1); Eosinophil# 0.26 X10^3/uL; Eosinophils% 3.8 % (0-5); Hematocrit 24.6 % (40-54); Hemoglobin 7.9 g/dL (13.0-16.5); Lymphocyte # 1.22 X10^3/ul (0.83-4.51); Lymphocyte % 17.7 % (19-41); Mean Corp Hgb Conc 32.1 g/dL (32-36); Mean Corpuscular Hgb 28.6 pg (27.0-32.0); Mean Corpuscular Volume 89.1 fL (80-94); Mean Platelet Vol. 12.6 fl (6.2-12.0); Monocyte% 13.1 % (0-10); NRBC Flagged by Analyzer 0 % (0-5); Neutrophil # 4.36 X10^3/uL (2.7-7.7); Neutrophil % 63.4 % (47-70); Platelet Count 162 K/mm3 (150-450); RBC Distribution Width CV 16.5 % (11.6-14.6); Red Blood Count 2.76 M/mm3 (4.6-6.2); White Blood Count 6.9 K/mm3 (4.4-11.0)
== END | disposition home or self-care (01) ==
LOC: MTLAB 12:41
PROVIDERS: PCP Family Medicine Geriatric Medicine; Referring Provider Internal Medicine Rheumatology; Visit Provider Internal Medicine Rheumatology
DX: M06.4 Inflammatory polyarthropathy (principal); Z79.899 Other long term (current) drug therapy
CPT/HCPCS: 36415; 80053; 85025

== ENCOUNTER → 2023-12-25 | Outpatient (CLI) | payer MEDICARE, SELFPAY ==
[2023-12-25 13:33] LABS: Anion Gap 10 (5-15); BUN 41 mg/dL (7-18); BUN/Creat Ratio 18.6 RATIO (10-20); Calcium,Total 8.5 mg/dL (8.5-10.1); Chloride 112 mmol/L (98-107); EST Glomerular Filtration Rate 31 mL/min (>60); Est Glom Filt Rate - Afr Amer 37 mL/min (>60); Glucose 116 mg/dL (74-106); Potassium 4.1 mmol/L (3.5-5.1); Sodium Level 138 mmol/L (136-145)
== END | disposition home or self-care (01) ==
LOC: POLAB3 12:31
PROVIDERS: PCP Family Medicine Geriatric Medicine; Visit Provider Family Medicine Geriatric Medicine
DX: E78.5 Hyperlipidemia, unspecified (principal); R68.83 Chills (without fever)
CPT/HCPCS: 36415; 80048; 87631

== ENCOUNTER 2024-01-15 11:35 | Day surgery (SDC) | payer MEDICARE, SELFPAY ==
--- NOTE | 2024-01-11 08:20 | EKG12_ITS ---
Test Reason : PRE OP Blood Pressure : / mmHG Vent. Rate : 072 BPM Atrial Rate : 072 BPM P-R Int : 232 ms QRS Dur : 100 ms QT Int : 406 ms P-R-T Axes : 071 -27 055 degrees QTc Int : 444 ms Sinus rhythm with 1st degree A-V block with Premature atrial complexes Septal infarct , age undetermined Abnormal ECG Confirmed by LOBITO REA, PARKER ([id number]), editorial clerk HARRISON العلي ([id number]) on 01/11/2024 12:49:21 PM Referred By: Mumtaz Damian Confirmed By:PARKER ROBIN MD
[2024-01-11 08:55] LABS: Absolute Lymphocyte Count 1.07 X10^3/uL (0.83-4.51); Basophil# 0.07 X10^3/uL; Basophil% 0.9 % (0-1); Eosinophil# 0.24 X10^3/uL; Eosinophils% 2.9 % (0-5); Hematocrit 23.8 % (40-54); Hemoglobin 7.4 g/dL (13.0-16.5); Lymphocyte # 1.07 X10^3/ul (0.83-4.51); Lymphocyte % 13.1 % (19-41); Mean Corp Hgb Conc 31.1 g/dL (32-36); Mean Corpuscular Hgb 28.1 pg (27.0-32.0); Mean Corpuscular Volume 90.5 fL (80-94); Monocyte# 0.78 X10^3/uL; Monocyte% 9.5 % (0-10); NRBC Flagged by Analyzer 0 % (0-5); Neutrophil # 5.99 X10^3/uL (2.7-7.7); Neutrophil % 73.1 % (47-70); Platelet Count 128 K/mm3 (150-450); RBC Distribution Width CV 17.6 % (11.6-14.6); RBC Distribution Width SD 58.6 fl (35.1-43.9); RET-HE 28.9 pg (30-35); Red Blood Count 2.63 M/mm3 (4.6-6.2); Reticulocyte Count 1.82 % (0.5-1.5); White Blood Count 8.2 K/mm3 (4.4-11.0)
[2024-01-11 09:12] LABS: Ferritin 482 ng/mL (26-388); Hemoglobin A1c 6.1 % (3.8-5.6); Iron 42 ug/dL (65-175); Iron Binding Capacity,Total 221 ug/dL (250-450)
[2024-01-11 09:15] LABS: Vitamin B12 263 pg/mL (211-911)
[2024-01-15] VITALS (8 sets, daily range): BP systolic 146–167; BP diastolic 87–103; PULSE 52–68; RESP 15–18; TEMP 36.3–37.2; O2SAT 95–98; BMI 33.4
--- NOTE | 2024-01-15 11:43 | PCM.PRE.AN2 ---
ASA Classification* ASA Classification ASA Classification: 3 Assessment & Plan Anesthesia* Anesthesia Assessment Anesthesia Assessment: Discussed sedation and/or anesthesia options, risks, benefits, and alternatives with patient/parents/legal guardian/POA. Questions invited. The patient/parents/legal guardian/POA seems to understand and agrees to proceed with anesthesia plan. Reviewed the physical assessment, medical history, allergy history and patient home medications list prior to surgery/procedure/anesthetic and documented any changes. Performed airway and anesthesia risk assessments. Anesthesia Type Anesthesia Type: General Anesthesia Focused Assessment* Airway Assessment Mouth opens: >3 cm Mallampati Score: II Focused Labs Anesthesia Preop lab: CBC WBC 8.2 K/mm3 (4.4-11.0) 01/11/24 08:38 RBC 2.63 M/mm3 (4.6-6.2) L 01/11/24 08:38 Hgb 7.4 g/dL (13.0-16.5) L 01/11/24 08:38 Hct 23.8 % (40-54) L 01/11/24 08:38 Plt Count 128 K/mm3 (150-450) L 01/11/24 08:38 CHEMISTRY Potassium 4.1 mmol/L (3.5-5.1) 12/25/23 12:31 Sodium 138 mmol/L (136-145) 12/25/23 12:31 Magnesium 2.1 mg/dL (1.6-2.6) 02/06/21 13:32 Phosphorus 2.6 mg/dL (2.5-4.9) 02/16/23 12:52 BUN 41 mg/dL (7-18) H 12/25/23 12:31 Creatinine 2.20 mg/dL (0.70-1.30) H 12/25/23 12:31 Glucose 116 mg/dL (74-106) H 12/25/23 12:31 POC Glucose 208 mg/dL (74-106) H 03/24/23 06:37 TSH 0.87 uIU/mL (0.358-3.74) 12/10/23 12:26 COAG PT 13.2 SECONDS (11.7-14.9) 03/02/23 15:28 Pre-Assessment Diagnosis/Proposed Procedure Planned Operative Procedure(s): Cysto,Transurethal Resec Bladder,Olympus Anesthesia History Anesthesia History - educational program assistant: Anesthesia History - educational program assistant Hx Hospitalization No 01/07/24 14:21 Any Problems With Anesthesia No 01/07/24 14:21 Cholinesterase deficiency No 01/07/24 14:21 You/Your Family Experience No 01/07/24 14:21 fever (hyperthermia) with Relationship Recent Exposure to Contagious No 03/24/23 06:39 Disease Does patient have nerve No 01/07/24 14:21 stimulator Patient instructed to have device shut off --Does patient have Pacemaker or ICD? When Was Last Pacemaker Check QUESTION #4 FULL TEXT: You/Your Family Experience fever (hyperthermia) with Anesthesia Last Oral Intake Last Oral intake: Last Oral Intake NPO since Meds taken in AM with sips of water? Meds patient instructed to take am of surgery PONV PONV - educational program assistant: PONV - educational program assistant Female No 01/07/24 14:21 HX of Motion Sickness No 01/07/24 14:21 HX of N/V After Surgery No 01/07/24 14:21 Non-Smoker Yes 01/07/24 14:21 Duration of Surgery greater Yes 01/07/24 14:21 than 60 minutes Number of Risk Factors 2 01/07/24 14:21 PONV Score Moderate Risk 01/07/24 14:21 Height & Weight Height & Weight: Anesthesia: Height & Weight Height 6 ft 01/13/24 11:50 Respiratory Assessment Respiratory Assessment - educational program assistant: Respiratory Tract Infection Hx - educational program assistant Hx Respiratory Tract Infection No 01/07/24 14:21 STOP Sleep Apnea STOP Sleep Apnea - educational program assistant: STOP Sleep Apnea - educational program assistant Hx Hypertension Yes: CONTROLLED WITH MED 01/12/24 10:02 Hx Sleep Apnea No 01/07/24 14:21 CPAP BIPAP Do you snore loudly (louder No 01/07/24 14:21 than talking or can be heard Do you often feel tired/ No 01/07/24 14:21 fatigued/ sleepy during daytime? Has anyone observed you stop No 01/07/24 14:21 breathing during sleep? STOP Results Negative 01/07/24 14:21 QUESTION #5 FULL TEXT : Do you snore loudly (louder than talking or can be heard through closed doors)? Tobacco Use History Tobacco Use History - educational program assistant: Tobacco Use History - educational program assistant Tobacco Use Smoking Status Former smoker 01/07/24 14:21 Hx Tobacco Use No 01/07/24 14:21 Years Smoking Packs Smoked per Day Smoking Cessation Date was No - quit smoking greater 01/07/24 14:21 within the last 15 years than 15 years ago Hx Smoking Cessation Date 10/25/90 01/07/24 14:21 Hx Smoking Cessation Counseling Hematologic Medial History Hematologic Hx - educational program assistant: Hematologic Medical Hx - documentation billing clerk Hx of Blood Transfusion No 01/07/24 14:21 Hx of Transfusion in last 3 No 01/07/24 14:21 Months Date of Last Transfusion (if within last 3 months) Ever experience any problems No 01/07/24 14:21 with transfusion(s)? Specify any problems Hx of Preganancy in last 3 N/A 01/07/24 14:21 Months Nurse Filling Out Transfusion NBUCHER 01/07/24 14:21 & Questions: Date: 01/07/24 01/07/24 14:21 Time: 14:23 01/07/24 14:21 Patient unable to answer at this time (ie. confused, unrespo /Reproduction History /Reproductive History - educational program assistant: /Reproductive Hx- educational program assistant Hx Now Gestational Age (in weeks): EDC: Hx Hx Para Hx Section SAB No 01/07/24 14:21 PFSH Medical History Bladder tumor Prostate disease Macular degeneration Rheumatoid arthritis Wears glasses Discoloration of skin History of steroid therapy Insulin dependent diabetes mellitus Anemia Gastric reflux Former smoker Hypertension History of echocardiogram History of stress test Cardiology follow-up encounter Wears hearing aid Easy bruising Injury of head and neck History of atrial fibrillation Chronic kidney disease, stage III (moderate) Sciatica Osteoarthritis Chronic kidney disease (CKD) Subdural hematoma (2013) Obesity New onset atrial fibrillation (02/2019) Vitamin B 12 deficiency Hyperlipidemia GERD (gastroesophageal reflux disease) BPH (benign prostatic hyperplasia) Anemia Essential hypertension Type 2 diabetes mellitus without complication Arthritis Home Medications ?Medication ?Instructions ?Recorded ?Last Taken ?Type finasteride 5 mg tablet (Proscar) 5 mg PO QHS 08/22/14 03/23/23 History hydroxychloroquine 200 mg tablet 200 mg PO BID 02/25/19 03/23/23 History (Plaquenil) omeprazole 10 mg capsule,delayed 10 mg PO DAILY 02/25/19 03/24/23 History release amlodipine 5 mg tablet 5 mg PO QHS 09/08/22 Unknown History leflunomide 20 mg tablet (Arava) 20 mg PO DAILY 09/08/22 03/23/23 History vitamins A,C,S-bmzc-gyiamj 4,296 1 cap PO BID 09/08/22 Unknown History mcg-226 mg-90 mg capsule (PreserVision AREDS) ferrous fumarate 200 mg (65 mg 1 tab PO DAILY 01/12/23 03/23/23 History iron)-vit C 25 mg tablet,extend release (Ana-Sequels (iron-vit c)) pioglitazone 30 mg tablet 30 mg PO DAILY 01/07/24 Unknown History alfuzosin 10 mg tablet,extended 10 mg PO QDAY 01/11/24 Unknown History release 24 hr cholecalciferol (vitamin D3) 25 25 mcg PO QDAY 01/11/24 Unknown History mcg (1,000 unit) capsule prednisone 10 mg tablet 10 mg PO QDAY PRN arthritis flare 01/11/24 Unknown History up Allergy/AdvReac Type Severity Reaction Status Date / Time No Known Allergies Allergy Verified 01/12/24 10:00 Family History Father CAD (coronary artery disease) Parkinson disease Mother Cancer Surgical History History of carpal tunnel surgery of right wrist Hx of decompression of ulnar nerve History of total left hip replacement History of surgery on arm History of vocal cord polypectomy Social History Smoking Status: Former smoker alcohol intake: never what type of physical activity do you participate in: walking frequency: daily Review of Systems (Anesthesia) ROS Narrative System reviewed and no additional complaints, except as documented.
[2024-01-15] MEDS: Lactated Ringers 1,000 ML 15 ML IV (12:22)
--- NOTE | 2024-01-15 12:57 | HP.PCM_ITS ---
HPI - General General Date of Service: 01/15/24 Chief Complaint: Bladder tumor HPI Narrative CELIA BARNARD, is a 83 M who presents resection of a large bladder tumor that appears invasive FOR[facility]LY [facility], [facility] Medical History Bladder tumor Prostate disease Macular degeneration Rheumatoid arthritis Wears glasses Discoloration of skin History of steroid therapy Insulin dependent diabetes mellitus Anemia Gastric reflux Former smoker Hypertension History of echocardiogram History of stress test Cardiology follow-up encounter Wears hearing aid Easy bruising Injury of head and neck History of atrial fibrillation Chronic kidney disease, stage III (moderate) Sciatica Osteoarthritis Chronic kidney disease (CKD) Subdural hematoma (2013) Obesity New onset atrial fibrillation (02/2019) Vitamin B 12 deficiency Hyperlipidemia GERD (gastroesophageal reflux disease) BPH (benign prostatic hyperplasia) Anemia Essential hypertension Type 2 diabetes mellitus without complication Arthritis Home Medications ?Medication ?Instructions ?Recorded ?Last Taken ?Type finasteride 5 mg tablet (Proscar) 5 mg PO QHS 08/22/13 03/23/23 History hydroxychloroquine 200 mg tablet 200 mg PO BID 02/25/19 01/14/24 History (Plaquenil) omeprazole 10 mg capsule,delayed 10 mg PO DAILY 02/25/19 01/15/24 History release amlodipine 5 mg tablet 5 mg PO QHS 09/08/22 01/14/24 History leflunomide 20 mg tablet (Arava) 20 mg PO DAILY 09/08/22 01/14/24 History vitamins A,C,V-qvva-wdplxy 4,296 1 cap PO BID 09/08/22 01/14/24 History mcg-226 mg-90 mg capsule (PreserVision AREDS) ferrous fumarate 200 mg (65 mg 1 tab PO DAILY 01/12/23 01/14/24 History iron)-vit C 25 mg tablet,extend release (Ana-Sequels (iron-vit c)) pioglitazone 30 mg tablet 30 mg PO DAILY 01/07/24 01/14/24 History alfuzosin 10 mg tablet,extended 10 mg PO QDAY 01/11/24 01/14/24 History release 24 hr cholecalciferol (vitamin D3) 25 25 mcg PO QDAY 01/11/24 01/14/24 History mcg (1,000 unit) capsule Allergy/AdvReac Type Severity Reaction Status Date / Time No Known Allergies Allergy Verified 01/15/24 12:09 Family History Father CAD (coronary artery disease) Parkinson disease Mother Cancer Surgical History History of carpal tunnel surgery of right wrist Hx of decompression of ulnar nerve History of total left hip replacement History of surgery on arm History of vocal cord polypectomy Social History Smoking Status: Former smoker alcohol intake: never what type of physical activity do you participate in: walking frequency: daily Vital Signs Vital Signs Vital Signs: 01/15/24 12:15 01/15/24 12:17 Temperature 98.9 F Temperature Source Temporal Pulse Rate 52 L Respiratory Rate 16 Respiratory Pattern Normal Blood Pressure 146/96 H Blood Pressure Mean 112 Blood Pressure Source Monitor Blood Pressure Position Semi-Fowlers Blood Pressure Location Left Arm Pulse Ox 98 Oxygen Delivery Method Room Air Weight Weight: 111.8 kg Body Mass Index (BMI) 33.4 Results Lab / Micro Data 01/11/24 08:38
[2024-01-15 12:59] LABS: Bedside Glucose 120 mg/dL (74-106)
--- NOTE | 2024-01-15 12:59 | DCINST_ITS ---
Discharge Instructions Diet Discharge Diet: No restrictions Activity Discharge Activity: Return to Normal Activity and May Not Drive (while taking narcotic pain medications.) Additional Activity Instructions:: OTC meds for pain , use AZO bladder for burning. Dressing / Incision Call your doctor if you observe: Fever of 101 or Higher Follow Up Care Please Follow Up With: Mumtaz Damian MD When: Call [phone] for an appointment Test Results: Test results from this visit will be discussed in further detail at your follow- up appointment, if applicable. Discharge Plan Admission Primary Reason for Your Visit: bladder tumor Attending Provider: Mumtaz Damian Primary Care Provider: Franky Craig Chi Consulting Providers: Tejas Luna; Sunny Bruner Instructions Patient Instructions: Transurethral Bladder Tumor Dc Print Language: Chinese Discharge Orders/Prescriptions Prescriptions: Continued omeprazole 10 mg capsule,delayed release(DR/EC) 10 mg PO DAILY hydroxychloroquine [Plaquenil] 200 mg tablet 200 mg PO BID Ana-Sequels (iron-vit c) 200 mg (65 mg iron)-25 mg tablet extended release 1 tab PO DAILY amlodipine 5 mg tablet 5 mg PO QHS Patient Comments: take 1 tablet by mouth once daily leflunomide [Arava] 20 mg tablet 20 mg PO DAILY Patient Comments: on hold for one week post op, surgery 01/15/24 PreserVision AREDS 4,296 mcg-226 mg-90 mg capsule 1 cap PO BID alfuzosin 10 mg tablet extended release 24 hr 10 mg PO QDAY cholecalciferol (vitamin D3) 25 mcg (1,000 unit) capsule 25 mcg PO QDAY finasteride [Proscar] 5 MG tablet 5 mg PO QHS pioglitazone 30 mg tablet 30 mg PO DAILY Other Ambulatory Orders: 12 Lead EKG (Routine) Timeframe: 20240111 Location: None Selected Ordered By: Dr. Tejas Luna Referrals / Follow Up: Franky Craig Chi, MD [Primary Care Provider] - Disposition Disposition (needs filled in before D/C Order can be placed): Home, Self Care
[2024-01-15] MEDS: Cefazolin 2 GM in 0.9% Normal Saline (100mL Bag) 100 ML IV (13:24)
--- NOTE | 2024-01-15 13:40 | BLB_PTH ---
PATIENT: CELIA BARNARD LOC: [facility] [place][id number] AGE/SX: 83/M ROOM: RE01/15/[address]: Dr. Mumtaz Damian MD : 1940 BED: DIS: 01/15/2024 SPEC #: [id number] RECD: 01/15/24 15:25 STATUS: RJ REKamran #: [id number] RADHA: 01/15/24 13:[address]: Mumtaz Damian DEPT: SURGICAL PATHOLOGY RECD BY: Ayde Phipps ENTERED: 01/18/24 06:54 SP TYPE: TURB OTHR DR: MD Dr. Sunny Fleming MD Dr. 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 See cancer summary below. SJ 01/19/2024 COMMENT BLADDER CANCER (TUR) SUMMARY Procedure: Transurethral resection of bladder tumor (TURBT) Tumor site: Not specified Histologic type: Urothelial carcinoma extensive squamous differentiation - Percentage of squamous differentiation - >99% Associated epithelial lesions: None identified Histologic grade: Urothelial carcinoma: high grade 3/3 - squamous cell carcinoma, grade 2 to grade 3 moderate to poorly differentiated Tumor configuration: Invasive Muscularis propria presence: muscularis propria (detrusor muscle) present and uninvolved by tumor Lymphvascular invasion: Not identified Tumor extension: Tumor invades the muscularis propria.. Additional pathologic findings: Chronic inflammation. - tumor necrosis. PATHOLOGIC STAGE: pT2, pNx, pMx The above summary is in compliance with [employer] [employer] (CAP) Cancer Protocols Checklist and [place] Joint Committee on Cancer (AJCC), Staging Manual, 8th Ed. Case has been reviewed in consultation with Dr. Lopez who concurs with the above diagnosis. IDC:AM MICROSCOPIC DESCRIPTION Slides are reviewed. GROSS DESCRIPTION Received in fixative is one container labeled with the patient's name and designated Bladder tumor. The specimen consists of multiple irregular fragments of manley-light brown soft tissue that in aggregate measure 3.5 x 3.5 x 1.0 cm. The specimen is totally submitted in sixteen cassettes. 01/18/2024 TC:0 CPT:92858 ADDENDUM ADDENDUM ADDENDUM ADDENDUM ADDENDUM ADDENDUM ADDENDUM ADDENDUM ADDENDUM ADDENDUM ADDENDUM ADDENDUM 03/17/2024 15:18 ADDENDUM 03/17/2024 15:18 ADDENDUM 03/17/2024 15:18 ADDENDUM 03/17/2024 15:18 ADDENDUM 03/17/2024 15:18 This addendum is added to incorporate an outside pathology consultation report. The case was examined at [facility] (#[id number]) and the following diagnosis was rendered. Bladder tumor, transurethral resection: Invasive keratinizing squamous cell carcinoma, moderately differentiated. Lamina propria invasion is present. Muscularis propria is involved by carcinoma. Please see complete above mentioned consultation report in EMR
--- NOTE | 2024-01-15 14:11 | PCM.OPRPT ---
Report of Operation Date of Procedure: 01/15/24 Pre-Operative Diagnosis: Large invasive bladder tumor, size 7 x 5 cm Post-Operative Diagnosis: Same Surgery/Procedure Performed:: Transurethral section of a large bladder tumor Description of Surgical Findings:: Patient presented to the hospital for treatment of a tumor that was found in the bladder with a very large bladder tumor. Patient understands is possible it may not be able to resect the entire tumor. Patient also understands is possible that the patient may need multiple procedures or more invasive procedures to cure him of this cancer. Findings: large invasvie bladder cancer. Patient was taken back to the operating room after smooth induction of anesthesia the patient was placed supine on the table. The patient was placed in dorsolithotomy position. The urethra and genitals prepped and draped in usual sterile fashion. I went into the bladder with a 30 degree lens and a cystoscope was performed and identified the tumor the tumors which was about 7x5 centimeters in size and occupying mostly the right lateral wall and anterior wal of the bladder. I then switched over to the 70 degree lens and inspected the rest of the bladder with a 70 degree lens to make sure there is no other tumors in the bladder and to identify all the tumor locations. The right and left ureteral orifice were identified. The tumor was involved in the ureteral orifice. I then placed the Olympus bipolar resectoscope with a large loop into the bladder. I then started resected the tumor and started superficially shaving small little pieces working my way to the base of the tumor. As I went along I then cauterize any bleeders that were encountered during the resection. The tumor pieces were then flushed out of the bladder and continued resecting the tumor until finally I got down to the base of the tumor and the muscle of the bladder was then identified a small little bit of muscle was taken with the resection. The Ellik was used then to evacuate all the tumor pieces out of the bladder. I then cauterized extensively the tumor base and also circumferentially around where the tumor was. Again we made sure to evacuate all the pieces out the bladder. I made sure there was no more bleeding from the base of the bladder and then over the tumor pieces were then evacuated out and sent off as a specimen. After the resection of the entire tumor was completed. We then placed the catheter in the bladder and the patient was taken back to the PACU in stable condition. Surgeon: Mumtaz Damian Type of Anesthesia: General Drains: 20 fr. Estimated Blood Loss (mL): 5 Admit VTE Documentation VTE Present on Admission: No VTE Mechan Device Prophylaxis: SCD's VTE Pharm Prophylaxis ordered?: No
[2024-01-15] MEDS: Lactated Ringers 1,000 ML 100 ML IV (14:42)
[2024-01-15] MEDS: Ketorolac 15 MG/ML Vial IV (14:42)
--- NOTE | 2024-01-15 15:14 | PCM.POST.ANE ---
Anesthesia: Postop Eval I Current Vital Signs Temperature: 97.4 F Pulse Rate: 68 Blood Pressure: 155/99 Respiratory Rate: 15 Pulse Ox: 96 Oxygen Delivery Method: Room Air Assessment Airway patent: Yes Spontaneous unlabored respirations: Yes Mental status: Awake and Calm nausea: No Vomiting: No Anesthesia Complication: No Fluid Hydration Crystalloid volume administer (ml): 800 Total IV fluid infused: 800 Progress Note Anesthesia document: Postop Eval 1 completed: Yes
--- NOTE | 2024-01-15 15:32 | POSTOPAN2_ITS ---
Anesthesia Postop Eval I Sum Postop Eval Completion status Anesthesia document: Postop Eval 1 completed: Yes Anesthesia Postop Eval I Summary Anesthesia Postop Eval I Summary: Anesthesia Postop Eval I: Assessment Summary Airway patent Yes 01/15/24 15:15 [email or web address] Spontaneous unlabored Yes 01/15/24 15:15 [email or web address] respirations Mental status Awake,Calm 01/15/24 15:15 [email or web address] nausea No 01/15/24 15:15 [email or web address] Vomiting No 01/15/24 15:15 [email or web address] Anesthesia Postop Eval I: Fluid Summary Crystalloid volume administer 800 01/15/24 15:15 [email or web address] (ml) Colloids volume administered ( ml) Blood Product volume administered (ml) Total IV fluid infused 800 01/15/24 15:15 [email or web address] Anesthesia Postop Eval I: Summary Notes Anesthesia Complication No 01/15/24 15:15 [email or web address] Anesthesia Complication Comment: Post-operative progress note Anesthesia: Postop Eval II Evaluation Mental status: Awake Pain Level: 0 nausea: No Vomiting: No
--- NOTE | 2024-01-15 15:32 | PCM.POSTANE2 ---
Anesthesia Postop Eval I Sum Postop Eval Completion status Anesthesia document: Postop Eval 1 completed: Yes Anesthesia Postop Eval I Summary Anesthesia Postop Eval I Summary: Anesthesia Postop Eval I: Assessment Summary Airway patent Yes 01/15/24 15:15 [email or web address] Spontaneous unlabored Yes 01/15/24 15:15 [email or web address] respirations Mental status Awake,Calm 01/15/24 15:15 [email or web address] nausea No 01/15/24 15:15 [email or web address] Vomiting No 01/15/24 15:15 [email or web address] Anesthesia Postop Eval I: Fluid Summary Crystalloid volume administer 800 01/15/24 15:15 [email or web address] (ml) Colloids volume administered ( ml) Blood Product volume administered (ml) Total IV fluid infused 800 01/15/24 15:15 [email or web address] Anesthesia Postop Eval I: Summary Notes Anesthesia Complication No 01/15/24 15:15 [email or web address] Anesthesia Complication Comment: Post-operative progress note Anesthesia: Postop Eval II Evaluation Mental status: Awake Pain Level: 0 nausea: No Vomiting: No
--- NOTE | 2024-01-15 16:00 | SUR.PHASEII ---
Phase 2: Patient educated on shaw care, daughter and at bedside. all questions answered. shaw emptying and care demonstrated.
== END 2024-01-15 16:02 | disposition home or self-care (01) ==
LOC: SDC 11:39 → AC 11:52
PROVIDERS: Anesthesiology; Internal Medicine Hematology & Oncology; PCP Family Medicine Geriatric Medicine; Referring Provider Urology; Visit Provider Urology
PROC: 0TBB8ZZ Excision of Bladder, Via Natural or Artificial Opening Endoscopic (ICD-10-PCS; CPT 52240; principal; 2024-01-15 13:30)
DX: C67.9 Malignant neoplasm of bladder, unspecified (principal); E11.22 Type 2 diabetes mellitus with diabetic chronic kidney disease; N18.30 Chronic kidney disease, stage 3 unspecified; I12.9 Hypertensive chronic kidney disease with stage 1 through stage 4 chronic kidney disease, or unspecified chronic kidney disease; Z87.891 Personal history of nicotine dependence; Z79.899 Other long term (current) drug therapy
CPT/HCPCS: 52240; 36415; 82607; 82728; 82962; 83036; 83540; 83550; 85025; 85045; 88307; 93005; J7120; J2405

== ENCOUNTER → 2024-01-25 | Outpatient (CLI) | payer MEDICARE, SELFPAY ==
--- NOTE | 2024-01-25 12:20 | RAD_ITS ---
EXAM: XR CHEST, 2 VIEWS CLINICAL INDICATION: Malignant neoplasm of overlapping sites of bladder TECHNIQUE: Frontal and lateral views of the chest. COMPARISON: 12/10/2023 FINDINGS: LUNGS AND PLEURAL SPACES: Unremarkable. No consolidation or edema. No pneumothorax. No effusion. HEART: Unremarkable. Cardiac silhouette not enlarged. MEDIASTINUM: Central airways and mediastinal contour are unremarkable. BONES/JOINTS: Unremarkable. No acute fracture. SOFT TISSUES: Unremarkable. RAD/Chest PA and Lateral IMPRESSION: No radiographic evidence of acute cardiopulmonary disease. Electronically Signed: Anthony Ramirez MD at 0:00 EDT ,
== END | disposition home or self-care (01) ==
LOC: RAD 12:14
PROVIDERS: PCP Family Medicine Geriatric Medicine; Referring Provider Urology; Visit Provider Urology
DX: C67.8 Malignant neoplasm of overlapping sites of bladder (principal)
CPT/HCPCS: 71046

== ENCOUNTER → 2024-02-04 | Outpatient (CLI) | payer MEDICARE, SELFPAY ==
[2024-02-04 11:00] LABS: Absolute Lymphocyte Count 1.08 X10^3/uL (0.83-4.51); Absolute Neutrophil Count 6.2 X10^3/uL (2.0-7.7); Basophil# 0.12 X10^3/uL; Basophil% 1.4 % (0-1); Eosinophils% 3.5 % (0-5); Hematocrit 28.6 % (40-54); Lymphocyte # 1.08 X10^3/ul (0.83-4.51); Lymphocyte % 12.6 % (19-41); Mean Corp Hgb Conc 31.5 g/dL (32-36); Mean Corpuscular Hgb 28.8 pg (27.0-32.0); Mean Corpuscular Volume 91.4 fL (80-94); Mean Platelet Vol. 11.9 fl (6.2-12.0); Monocyte% 9.3 % (0-10); NRBC Flagged by Analyzer 0 % (0-5); Neutrophil % 72.5 % (47-70); Platelet Count 157 K/mm3 (150-450); RBC Distribution Width CV 17.1 % (11.6-14.6); RBC Distribution Width SD 57.3 fl (35.1-43.9); Red Blood Count 3.13 M/mm3 (4.6-6.2); White Blood Count 8.6 K/mm3 (4.4-11.0)
[2024-02-04 11:32] LABS: Vitamin D,25 Hydroxy 32.8 ng/mL
[2024-02-04 12:16] LABS: ALB/GLOB Ratio 0.9 RATIO (0.9-2.4); AST(SGOT) 16 U/L (15-37); Alanine Aminotransfer ALT/SGPT 16 U/L (16-61); Albumin, Serum 3.5 g/dL (3.2-5.0); Alkaline Phosphatase 88 U/L (45-117); Anion Gap 8 (5-15); BUN 35 mg/dL (7-18); BUN/Creat Ratio 15.2 RATIO (10-20); Chloride 111 mmol/L (98-107); Creatinine, Serum 2.31 mg/dL (0.70-1.30); EST Glomerular Filtration Rate 29 mL/min (>60); Est Glom Filt Rate - Afr Amer 35 mL/min (>60); Globulin 3.8 g/dL (2.2-4.2); Glucose 104 mg/dL (74-106); Potassium 4.1 mmol/L (3.5-5.1); Protein, Total 7.3 g/dL (6.4-8.2); Sodium Level 137 mmol/L (136-145)
== END | disposition home or self-care (01) ==
LOC: POLAB3 10:29
PROVIDERS: PCP Family Medicine Geriatric Medicine; Visit Provider Family Medicine Geriatric Medicine
DX: E11.65 Type 2 diabetes mellitus with hyperglycemia (principal); I10 Essential (primary) hypertension; E55.9 Vitamin D deficiency, unspecified
CPT/HCPCS: 36415; 80053; 82306; 84443; 85025

== ENCOUNTER → 2024-02-11 | Outpatient (CLI) | payer MEDICARE, SELFPAY ==
--- NOTE | 2024-02-11 07:51 | NM_ITS ---
INDICATION: STAGING BLADDER CANCER, NEW DX EXAMINATION: NUCLEAR MEDICINE BONE SCAN - NM Bone Imaging Whole Body TECHNIQUE: NM Bone whole body bone scan. Radiopharmaceutical Type, Dose and Route: 25 mCi of Tc99m MDP, IV administration. Imagin hour delayed whole body imaging in the anterior and posterior projection. COMPARISON/CORRELATED STUDIES: CT scan of the abdomen and pelvis of 12/21/2023 FINDINGS: BONES: Small faint focal area of increased uptake in the posterior left 10th rib close to the costovertebral junction. Uptake otherwise unremarkable. Mild decreased uptake in the shoulders which may reflect arthritis. SOFT TISSUES: Unremarkable. GENITOURINARY UPTAKE: Prompt symmetric renal uptake. Urinary bladder partially filled with raidiopharmaceutical. NM/Bone Scan Whole Body IMPRESSION: 1. Small focal faint increased uptake in the posterior left 10th rib. Correlation with radiographs of the ribs is recommended. 2. Otherwise no evidence of metastatic disease. Electronically Signed: Tra Norman MD at 15:22 EDT ,
[2024-02-11 07:54] LABS: Absolute Lymphocyte Count 1.83 X10^3/uL (0.83-4.51); Absolute Neutrophil Count 5.5 X10^3/uL (2.0-7.7); Basophil# 0.06 X10^3/uL; Basophil% 0.7 % (0-1); Eosinophil# 0.29 X10^3/uL; Eosinophils% 3.3 % (0-5); Hematocrit 26.9 % (40-54); Hemoglobin 8.3 g/dL (13.0-16.5); Lymphocyte # 1.83 X10^3/ul (0.83-4.51); Lymphocyte % 20.7 % (19-41); Mean Corp Hgb Conc 30.9 g/dL (32-36); Mean Corpuscular Hgb 28.4 pg (27.0-32.0); Mean Corpuscular Volume 92.1 fL (80-94); Monocyte# 0.98 X10^3/uL; Monocyte% 11.1 % (0-10); NRBC Flagged by Analyzer 0 % (0-5); Neutrophil # 5.54 X10^3/uL (2.7-7.7); Neutrophil % 62.8 % (47-70); Platelet Count 148 K/mm3 (150-450); RBC Distribution Width CV 17.5 % (11.6-14.6); RBC Distribution Width SD 58.9 fl (35.1-43.9); Red Blood Count 2.92 M/mm3 (4.6-6.2); White Blood Count 8.8 K/mm3 (4.4-11.0)
[2024-02-11 15:38] LABS: Xtra CC BBK (Onc ONLY) EXTRA TUBE
== END | disposition home or self-care (01) ==
PROVIDERS: PCP Family Medicine Geriatric Medicine; Referring Provider Internal Medicine Hematology & Oncology; Visit Provider Internal Medicine Hematology & Oncology
DX: C67.9 Malignant neoplasm of bladder, unspecified (principal); N18.31 Chronic kidney disease, stage 3a; D63.1 Anemia in chronic kidney disease
CPT/HCPCS: 36415; 78306; 85025; A9503

== ENCOUNTER → 2024-02-12 | Outpatient (CLI) | payer MEDICARE, SELFPAY ==
--- NOTE | 2024-02-12 14:49 | CT_ITS ---
INDICATION: Known bladder cancer, restaging EXAMINATION: CT CHEST WITHOUT CONTRAST - CT Chest W/O Contrast Injection TECHNIQUE: Helically acquired images were obtained of the chest. A radiation dose optimization technique was used for this scan. IV Contrast dosage and agent: None. COMPARISON: None. FINDINGS: LUNGS, PLEURA AND LARGE AIRWAYS: Lung windows show the lungs to be normally expanded. Chronic interstitial changes noted particularly around the periphery of both lung alexandra with some honeycombing. There is no organized infiltrate, effusion or suspicious noncalcified mass or nodule. THYROID: No thyroid lesions. HEART AND PERICARDIUM: There is cardiomegaly without pericardial effusion CORONARY ARTERIES: Coronary artery calcification is not seen. VESSELS: Thoracic aorta is dilated at 4.6 cm. MEDIASTINUM AND ALLY: No suspicious axillary, mediastinal or hilar adenopathy. Esophagus is unremarkable. No hiatal hernia. UPPER ABDOMEN: No acute pathology. BONES: No suspicious lytic or blastic abnormality. 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
== END | disposition home or self-care (01) ==
LOC: CT 14:47
PROVIDERS: PCP Family Medicine Geriatric Medicine; Referring Provider Internal Medicine Hematology & Oncology; Visit Provider Internal Medicine Hematology & Oncology
DX: C67.9 Malignant neoplasm of bladder, unspecified (principal)
CPT/HCPCS: 71250

== ENCOUNTER → 2024-02-17 | Outpatient (CLI) | payer MEDICARE, SELFPAY ==
--- NOTE | 2024-02-17 08:25 | RAD_ITS ---
STUDY: X-RAY - UNILATERAL RIBS ( LEFT ) WITH CHEST REASON FOR EXAM: Male, 83 years old. Posterior left 10th rib uptake on bone scan. TECHNIQUE - RIBS: 4 views of the left ribs. TECHNIQUE - CHEST: Single PA view of the chest. COMPARISON: Chest radiographs dated 01/25/2024. Whole-body bone scan dated 02/11/2024. CT chest dated 02/12/2024. FINDINGS - RIBS: Normal visualized left ribs without a demonstrated fracture. FINDINGS - CHEST: The lungs are clear and expanded. There is no demonstrated pleural abnormality. There is borderline cardiomegaly. Normal mediastinum and indira. Normal visualized pulmonary arteries. Normal visualized aortic arch and descending thoracic aorta. Normal visualized thoracic spine. Normal visualized ribs, clavicles, and shoulders. There is no demonstrated abnormality of the visualized soft tissue structures of the upper abdomen. RAD/Ribs Uni Min 3V w/PA Chest IMPRESSION: RIBS: Normal x-ray examination of the left ribs. CHEST: Borderline cardiomegaly. Electronically Signed: Sukumar Nava MD at 13:36 EDT ,
== END | disposition home or self-care (01) ==
LOC: RAD 08:15
PROVIDERS: PCP Family Medicine Geriatric Medicine; Referring Provider Nurse Practitioner Family; Visit Provider Nurse Practitioner Family
DX: R94.8 Abnormal results of function studies of other organs and systems (principal); C67.9 Malignant neoplasm of bladder, unspecified
CPT/HCPCS: 71101

== ENCOUNTER → 2024-03-15 | Outpatient (CLI) | payer MEDICARE, SELFPAY ==
[2024-03-15 15:03] LABS: Absolute Lymphocyte Count 1.06 X10^3/uL (0.83-4.51); Absolute Neutrophil Count 7.3 X10^3/uL (2.0-7.7); Basophil# 0.12 X10^3/uL; Basophil% 1.3 % (0-1); Eosinophil# 0.19 X10^3/uL; Hematocrit 27.4 % (40-54); Hemoglobin 8.5 g/dL (13.0-16.5); Lymphocyte # 1.06 X10^3/ul (0.83-4.51); Lymphocyte % 11.1 % (19-41); Mean Corpuscular Volume 90.1 fL (80-94); Mean Platelet Vol. 12.1 fl (6.2-12.0); Monocyte% 8.4 % (0-10); NRBC Flagged by Analyzer 0 % (0-5); Neutrophil # 7.28 X10^3/uL (2.7-7.7); Neutrophil % 76.5 % (47-70); Platelet Count 139 K/mm3 (150-450); RBC Distribution Width CV 17.6 % (11.6-14.6); RBC Distribution Width SD 58.6 fl (35.1-43.9); Red Blood Count 3.04 M/mm3 (4.6-6.2); White Blood Count 9.5 K/mm3 (4.4-11.0)
[2024-03-15 15:25] LABS: ALB/GLOB Ratio 0.9 RATIO (0.9-2.4); AST(SGOT) 17 U/L (15-37); Alanine Aminotransfer ALT/SGPT 17 U/L (16-61); Albumin, Serum 3.3 g/dL (3.2-5.0); Alkaline Phosphatase 91 U/L (45-117); Anion Gap 7 (5-15); BUN 35 mg/dL (7-18); BUN/Creat Ratio 17.3 RATIO (10-20); Calcium,Total 8.5 mg/dL (8.5-10.1); Chloride 112 mmol/L (98-107); Creatinine, Serum 2.02 mg/dL (0.70-1.30); EST Glomerular Filtration Rate 34 mL/min (>60); Est Glom Filt Rate - Afr Amer 41 mL/min (>60); Globulin 3.8 g/dL (2.2-4.2); Glucose 100 mg/dL (74-106); Potassium 4.2 mmol/L (3.5-5.1); Protein, Total 7.1 g/dL (6.4-8.2); Sodium Level 137 mmol/L (136-145)
== END | disposition home or self-care (01) ==
LOC: MTLAB 12:56
PROVIDERS: PCP Family Medicine Geriatric Medicine; Referring Provider Internal Medicine Rheumatology; Visit Provider Internal Medicine Rheumatology
DX: M06.4 Inflammatory polyarthropathy (principal); G56.03 Carpal tunnel syndrome, bilateral upper limbs; Z79.899 Other long term (current) drug therapy
CPT/HCPCS: 36415; 80053; 85025

== ENCOUNTER → 2024-04-18 | Outpatient (CLI) | payer MEDICARE, SELFPAY ==
[2024-04-18 15:39] LABS: Absolute Neutrophil Count 10.2 X10^3/uL (2.0-7.7); Basophil# 0.14 X10^3/uL; Basophil% 1.1 % (0-1); Eosinophils% 0.8 % (0-5); Hematocrit 29.3 % (40-54); Hemoglobin 9.1 g/dL (13.0-16.5); Lymphocyte % 8.6 % (19-41); Mean Corp Hgb Conc 31.1 g/dL (32-36); Mean Corpuscular Volume 90.2 fL (80-94); Mean Platelet Vol. 12.2 fl (6.2-12.0); Monocyte# 1.07 X10^3/uL; Monocyte% 8.4 % (0-10); NRBC Flagged by Analyzer 0 % (0-5); Neutrophil # 10.17 X10^3/uL (2.7-7.7); Neutrophil % 79.5 % (47-70); Platelet Count 248 K/mm3 (150-450); RBC Distribution Width CV 16.8 % (11.6-14.6); RBC Distribution Width SD 54.9 fl (35.1-43.9); Red Blood Count 3.25 M/mm3 (4.6-6.2); White Blood Count 12.8 K/mm3 (4.4-11.0)
[2024-04-18 16:32] LABS: ALB/GLOB Ratio 0.6 RATIO (0.9-2.4); AST(SGOT) 21 U/L (15-37); Alanine Aminotransfer ALT/SGPT 21 U/L (16-61); Albumin, Serum 2.7 g/dL (3.2-5.0); Alkaline Phosphatase 85 U/L (45-117); Anion Gap 9 (5-15); BUN 44 mg/dL (7-18); Calcium,Total 8.7 mg/dL (8.5-10.1); Chloride 113 mmol/L (98-107); Creatinine, Serum 2.31 mg/dL (0.70-1.30); EST Glomerular Filtration Rate 29 mL/min (>60); Est Glom Filt Rate - Afr Amer 35 mL/min (>60); Globulin 4.7 g/dL (2.2-4.2); Glucose 176 mg/dL (74-106); Potassium 3.9 mmol/L (3.5-5.1); Protein, Total 7.4 g/dL (6.4-8.2); Sodium Level 138 mmol/L (136-145)
== END | disposition home or self-care (01) ==
LOC: POLAB3 15:23
PROVIDERS: PCP Family Medicine Geriatric Medicine; Visit Provider Family Medicine Geriatric Medicine
DX: I10 Essential (primary) hypertension (principal)
CPT/HCPCS: 36415; 80053; 85025

== ENCOUNTER 2024-04-20 08:03 | Outpatient (CLI) | payer MEDICARE, SELFPAY ==
[2024-04-20] MEDS: 0.9% Normal Saline (1000mL) 1,000 ML 999 ML IV ×2 (08:21→09:26)
[2024-04-20 08:32] VITALS: BP 118/59; PULSE 87; RESP 16; TEMP 35.9; O2SAT 97; BMI 31.7
[2024-04-20] MEDS: 0.9% NaCl Peripheral Flush Adult/Peds IV (08:34)
[2024-04-20 10:36] VITALS: BP 136/74; PULSE 78; RESP 14; TEMP 36.1; O2SAT 99
== END 2024-04-20 23:59 | disposition home or self-care (01) ==
LOC: MEDOUTP 08:03
PROVIDERS: PCP Family Medicine Geriatric Medicine; Referring Provider Family Medicine Geriatric Medicine; Visit Provider Family Medicine Geriatric Medicine
DX: E86.0 Dehydration (principal)
CPT/HCPCS: 96360; 96361; A4216

== ENCOUNTER → 2024-04-25 | Outpatient (CLI) | payer MEDICARE, SELFPAY | END | disposition home or self-care (01) | LOC: LABSPEC 11:14 | PROVIDERS: PCP Family Medicine Geriatric Medicine; Referring Provider Family Medicine Geriatric Medicine; Visit Provider Family Medicine Geriatric Medicine | DX: D50.9 Iron deficiency anemia, unspecified (principal) | CPT/HCPCS: 82274 ==

== ENCOUNTER → 2024-05-03 | Outpatient (CLI) | payer MEDICARE, SELFPAY ==
[2024-05-03 15:15] LABS: Absolute Lymphocyte Count 1.33 X10^3/uL (0.83-4.51); Absolute Neutrophil Count 7.3 X10^3/uL (2.0-7.7); Eosinophil# 0.11 X10^3/uL; Eosinophils% 1.1 % (0-5); Hematocrit 28.8 % (40-54); Lymphocyte # 1.33 X10^3/ul (0.83-4.51); Lymphocyte % 13.7 % (19-41); Mean Corp Hgb Conc 31.3 g/dL (32-36); Mean Corpuscular Hgb 28.2 pg (27.0-32.0); Mean Corpuscular Volume 90.3 fL (80-94); Mean Platelet Vol. 11.5 fl (6.2-12.0); Monocyte# 0.63 X10^3/uL; Monocyte% 6.5 % (0-10); NRBC Flagged by Analyzer 0 % (0-5); Neutrophil # 7.32 X10^3/uL (2.7-7.7); Neutrophil % 75.3 % (47-70); Platelet Count 194 K/mm3 (150-450); RBC Distribution Width CV 17.6 % (11.6-14.6); Red Blood Count 3.19 M/mm3 (4.6-6.2); White Blood Count 9.7 K/mm3 (4.4-11.0)
[2024-05-03 15:56] LABS: Ferritin 1400 ng/mL (26-388); Iron 80 ug/dL (65-175); Iron Binding Capacity,Total 214 ug/dL (250-450); PERCENT IRON SATURATION 37.4 % (15.0-55.0); Vitamin B12 351 pg/mL (211-911)
== END | disposition home or self-care (01) ==
LOC: POLAB3 14:57
PROVIDERS: PCP Family Medicine Geriatric Medicine; Visit Provider Family Medicine Geriatric Medicine
DX: D50.9 Iron deficiency anemia, unspecified (principal)
CPT/HCPCS: 36415; 82607; 82728; 83540; 83550; 85025

== ENCOUNTER → 2024-05-10 | Outpatient (CLI) | payer MEDICARE, SELFPAY ==
[2024-05-10 10:50] LABS: Absolute Lymphocyte Count 1.64 X10^3/uL (0.83-4.51); Absolute Neutrophil Count 6.9 X10^3/uL (2.0-7.7); Basophil# 0.08 X10^3/uL; Basophil% 0.8 % (0-1); Eosinophil# 0.11 X10^3/uL; Eosinophils% 1.2 % (0-5); Hematocrit 30.3 % (40-54); Hemoglobin 9.4 g/dL (13.0-16.5); Lymphocyte # 1.64 X10^3/ul (0.83-4.51); Lymphocyte % 17.3 % (19-41); Mean Corpuscular Hgb 28.3 pg (27.0-32.0); Mean Corpuscular Volume 91.3 fL (80-94); Mean Platelet Vol. 12.1 fl (6.2-12.0); Monocyte# 0.63 X10^3/uL; Monocyte% 6.7 % (0-10); NRBC Flagged by Analyzer 0 % (0-5); Neutrophil # 6.88 X10^3/uL (2.7-7.7); Neutrophil % 72.7 % (47-70); Platelet Count 168 K/mm3 (150-450); RBC Distribution Width CV 18.7 % (11.6-14.6); RBC Distribution Width SD 61.7 fl (35.1-43.9); Red Blood Count 3.32 M/mm3 (4.6-6.2); White Blood Count 9.5 K/mm3 (4.4-11.0)
[2024-05-10 11:18] LABS: Vitamin D,25 Hydroxy 42.7 ng/mL
[2024-05-10 11:27] LABS: ALB/GLOB Ratio 0.7 RATIO (0.9-2.4); AST(SGOT) 10 U/L (15-37); Alanine Aminotransfer ALT/SGPT 18 U/L (16-61); Alkaline Phosphatase 105 U/L (45-117); Anion Gap 8 (5-15); BUN 55 mg/dL (7-18); BUN/Creat Ratio 26.6 RATIO (10-20); Calcium,Total 8.6 mg/dL (8.5-10.1); Chloride 116 mmol/L (98-107); Creatinine, Serum 2.07 mg/dL (0.70-1.30); EST Glomerular Filtration Rate 33 mL/min (>60); Est Glom Filt Rate - Afr Amer 40 mL/min (>60); Globulin 4.1 g/dL (2.2-4.2); Glucose 169 mg/dL (74-106); Potassium 3.4 mmol/L (3.5-5.1); Protein, Total 7.1 g/dL (6.4-8.2); Sodium Level 139 mmol/L (136-145)
== END | disposition home or self-care (01) ==
LOC: POLAB3 10:27
PROVIDERS: PCP Family Medicine Geriatric Medicine; Visit Provider Family Medicine Geriatric Medicine
DX: E11.65 Type 2 diabetes mellitus with hyperglycemia (principal); E55.9 Vitamin D deficiency, unspecified; I10 Essential (primary) hypertension
CPT/HCPCS: 36415; 80053; 82306; 84443; 85025

== ENCOUNTER → 2024-06-13 | Outpatient (CLI) | payer MEDICARE, SELFPAY ==
[2024-06-13 15:37] LABS: Absolute Lymphocyte Count 1.84 X10^3/uL (0.83-4.51); Absolute Neutrophil Count 6.9 X10^3/uL (2.0-7.7); Basophil# 0.11 X10^3/uL; Basophil% 1.1 % (0-1); Eosinophil# 0.07 X10^3/uL; Eosinophils% 0.7 % (0-5); Hematocrit 27.9 % (40-54); Hemoglobin 8.6 g/dL (13.0-16.5); Lymphocyte # 1.84 X10^3/ul (0.83-4.51); Lymphocyte % 18.6 % (19-41); Mean Corp Hgb Conc 30.8 g/dL (32-36); Mean Corpuscular Hgb 28.6 pg (27.0-32.0); Mean Corpuscular Volume 92.7 fL (80-94); Mean Platelet Vol. 12.1 fl (6.2-12.0); Monocyte# 0.92 X10^3/uL; Monocyte% 9.3 % (0-10); NRBC Flagged by Analyzer 0.2 % (0-5); Neutrophil # 6.86 X10^3/uL (2.7-7.7); Neutrophil % 69.2 % (47-70); POSITIVE MORPHOLOGY YES; Platelet Count 175 K/mm3 (150-450); RBC Distribution Width CV 20.2 % (11.6-14.6); Red Blood Count 3.01 M/mm3 (4.6-6.2); White Blood Count 9.9 K/mm3 (4.4-11.0)
[2024-06-13 15:44] LABS: Differential Indicated SCAN CRITERIA MET
[2024-06-13 16:02] LABS: AST(SGOT) 16 U/L (15-37); Alanine Aminotransfer ALT/SGPT 17 U/L (16-61); Albumin, Serum 3.4 g/dL (3.2-5.0); Alkaline Phosphatase 85 U/L (45-117); Anion Gap 9 (5-15); BUN 43 mg/dL (7-18); BUN/Creat Ratio 20.3 RATIO (10-20); Calcium,Total 8.3 mg/dL (8.5-10.1); Chloride 117 mmol/L (98-107); Creatinine, Serum 2.12 mg/dL (0.70-1.30); EST Glomerular Filtration Rate 32 mL/min (>60); Est Glom Filt Rate - Afr Amer 39 mL/min (>60); Globulin 3.5 g/dL (2.2-4.2); Glucose 117 mg/dL (74-106); Potassium 3.1 mmol/L (3.5-5.1); Protein, Total 6.9 g/dL (6.4-8.2); Sodium Level 140 mmol/L (136-145)
[2024-06-13 17:04] LABS: Anisocytosis 2+; Crenated RBC 1+; Differential Comment SCANNED; Platelet Estimate ADEQUATE (ADEQ)
[2024-06-13 19:37] LABS: Ovalocyte 1+
== END | disposition home or self-care (01) ==
LOC: MTLAB 12:52
PROVIDERS: PCP Family Medicine Geriatric Medicine; Referring Provider Internal Medicine Rheumatology; Visit Provider Internal Medicine Rheumatology
DX: M06.4 Inflammatory polyarthropathy (principal); Z79.899 Other long term (current) drug therapy
CPT/HCPCS: 36415; 80053; 85025

== ENCOUNTER → 2024-06-23 | Outpatient (REF) | payer MEDICARE, SELFPAY | LOC: OLS.DEFALT 15:50 | PROVIDERS: Visit Provider Family Medicine Geriatric Medicine | DX: T14.8XXA Other injury of unspecified body region, initial encounter (principal) | CPT/HCPCS: 87070; 87075; 87077; 87186; 87205 ==

== ENCOUNTER → 2024-07-06 | Outpatient (CLI) | payer MEDICARE, SELFPAY ==
--- NOTE | 2024-07-06 12:19 | US_ITS ---
PROCEDURE: KIDNEY AND BLADDER REASON FOR EXAM: Stage IV renal disease. Bladder cancer. Status post cystectomy. TECHNIQUE: Bilateral renal ultrasound. COMPARISON: None. FINDINGS: Normal renal sizes, parenchymal thicknesses, and echotextures. No hydronephrosis. No cysts or large solid renal masses. RIGHT Kidney Size: 11.4 cm x 5.1 cm x 5.5 cm Volume: 167.2 mL Parenchymal Thickness: 1.3 cm (>14mm is normal) LEFT Kidney Size: 11.2 cm x 5.3 cm x 5.3 cm Volume: 163.5 mL Cortical Thickness (if discernible): 1.2 cm (>6mm is normal) US/Kidney and Bladder IMPRESSION: NORMAL RENAL ULTRASOUND Reading Location: [id number]
== END | disposition home or self-care (01) ==
LOC: US 12:14
PROVIDERS: PCP Family Medicine Geriatric Medicine; Referring Provider Urology; Visit Provider Urology
DX: C67.8 Malignant neoplasm of overlapping sites of bladder (principal); N18.4 Chronic kidney disease, stage 4 (severe)
CPT/HCPCS: 76770

== ENCOUNTER → 2024-07-11 | Outpatient (CLI) | payer MEDICARE, SELFPAY ==
--- NOTE | 2024-07-11 09:51 | CT_ITS ---
PROCEDURE: CT CHEST, ABD, PELVIS WO CONT (CTCHAPWO), 07/11/2024 REASON FOR EXAM: Bladder cancer TECHNIQUE: CT chest, abdomen, and pelvis was performed without IV contrast. Multiplanar reformats were generated. CONTRAST: None. COMPARISON: 02/12/2024 and prior FINDINGS: Note that evaluation of the vasculature, indira, abdominopelvic viscera, and other soft tissues is limited in the absence of IV contrast. Streak artifact through the pelvis related to left hip arthroplasty hardware. Heart/pericardium: Similar mild cardiomegaly. Hypodense blood pool, suggesting anemia. Aorta: Trace atherosclerosis. Similar fusiform ectasia of the ascending aorta to 4.4 x 4.5 cm. Pulmonary arteries: Normal in caliber. Lymph nodes: Unremarkable. Lungs/pleura: Similar basilar predominant subpleural reticulation and mild associated ground-glass. No ofelia honeycombing or architectural distortion. Similar right upper lobe 3 nodule, 3 mm (series 6, image 43). Few sub 4 mm nodules in the subpleural left upper lobe/lingula are similar (for example, images 45 and 64). Similar 4 mm left lower lobe nodule (image 99). Airways: Unremarkable. No bronchiectasis. Chest wall: Unremarkable. Liver: Unremarkable. Spleen: Unremarkable. Gallbladder: Unremarkable. Pancreas: Atrophic. Adrenals: Unremarkable. Kidneys/ureters: Symmetric mild nonspecific perinephric stranding. Interval cystectomy with right lower quadrant ileal conduit. No hydronephrosis. Bowel: Operative changes of interval right lower quadrant ileal conduit creation. Mild gaseous dilatation of the transverse colon to 5.7 cm. Normal caliber appendix. Lymph nodes: Similar left external iliac node, 11 mm short axis. Vasculature: Trace to mild atherosclerosis. Peritoneum: Unremarkable. Bladder: Interval cystectomy with right lower quadrant ileal conduit as above. Reproductive Organs: Prostatectomy. Body Wall: Operative changes including right degenerative changes of the right hip. Lower quadrant ileal conduit as above. Tiny fat containing umbilical hernia. Tiny right and small left fat containing inguinal hernias.. Musculoskeletal: Demineralization. Multilevel spondylosis. Fiindings suggestive of diffuse idiopathic skeletal hyperostosis. Suspected old right clavicle fracture. Partially imaged left hip arthroplasty. Mild thoracolumbar dextroscoliosis. Degenerative changes of the SI joints. CT/CT Chest, Abd, Pelvis WO Cont IMPRESSION: 1. No definite noncontrast evidence of metastatic disease, noting that the lack of IV contrast limits sensitivity. A few sub 4 mm pulmonary nodules are nonspecific but unchanged. Given patient history, rec ommend continued follow-up to ensure ongoing stability. A borderline mildly enlarged left external iliac node is also simil ar and warrants attention on follow-up. 2. Findings most suggestive of mild colonic ileus. 3. Similar mild chronic pulmonary interstitial abnormality. 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 4. Similar fusiform ectasia of the ascending aorta to 4.5 cm. 5. Interval cystoprostatectomy with right lower quadrant ileal conduit. 6. Additional description as above. Reading Location: [facility]
--- NOTE | 2024-07-11 09:51 | NM_ITS ---
PROCEDURE: BONE SCAN WHOLE BODY REASON FOR EXAM: History of bladder cancer. Status post cystectomy with a ileal loop. TECHNIQUE: RADIOPHARMACEUTICAL: 27.8 mCi Technetium-99m MDP IV. Whole-body bone imaging was obtained. COMPARISON: Comparison is made with prior bone scan dated February 11, 2024. FINDINGS: Ileal loop is seen in the right lower quadrant. Increased symmetrical uptake at the level of both shoulder joints suggestive of degenerative change. Stable increased uptake in the the thoracic and lumbar vertebrae most likely secondary to degenerative disc disease. Stable faint uptake in the left 10th rib along the costovertebral junction. NM/Bone Scan Whole Body IMPRESSION: Status post cystectomy and ileal loop in the right lower quadrant. No evidence of metastatic deposits. Reading Location: [facility]
== END | disposition home or self-care (01) ==
PROVIDERS: PCP Family Medicine Geriatric Medicine; Referring Provider Internal Medicine Hematology & Oncology; Visit Provider Internal Medicine Hematology & Oncology
DX: C67.9 Malignant neoplasm of bladder, unspecified (principal)
CPT/HCPCS: 71250; 74176; 78306; A9503

== ENCOUNTER → 2024-07-27 | Outpatient (CLI) | payer MEDICARE, SELFPAY ==
[2024-07-27 16:36] LABS: Albumin, Serum 3.9 g/dL (3.4-4.8); Anion Gap 12 (5-15); BUN 41 mg/dL (4-19); BUN/Creat Ratio 20.7 RATIO (10-20); Calcium,Total 8.5 mg/dL (7.6-11.0); Chloride 110 mmol/L (98-108); Creatinine, Serum 1.98 mg/dL (0.70-1.20); EST Glomerular Filtration Rate 33 (>60); Glucose 115 mg/dL (70-99); Phosphorus 3.4 mg/dL (2.7-4.5); Potassium 3.9 mmol/L (3.3-5.1); Sodium Level 138 mmol/L (133-145)
[2024-07-27 16:47] LABS: Protein:Creat Ratio 1781 mg/g CRE (0-200)
== END | disposition home or self-care (01) ==
LOC: MTLAB 10:53
PROVIDERS: PCP Family Medicine Geriatric Medicine; Referring Provider Internal Medicine Nephrology; Visit Provider Internal Medicine Nephrology
DX: N17.9 Acute kidney failure, unspecified (principal); E11.22 Type 2 diabetes mellitus with diabetic chronic kidney disease; N18.9 Chronic kidney disease, unspecified
CPT/HCPCS: 36415; 80069; 82570; 84156

== ENCOUNTER → 2024-08-09 | Outpatient (CLI) | payer MEDICARE, SELFPAY ==
--- NOTE | 2024-08-09 12:04 | VDLE_ITS ---
Reason For Study Reason For Study: BLE SWelling RIGHT LEFT GSV is normal. GSV is normal. CFV is compressible, spontaneous, phasic, competent CFV is compressible, spontaneous, phasic, competent, and demonstrates normal augmentation. and demonstrates normal augmentation. FV is compressible, spontaneous, phasic, competent FV is compressible, spontaneous, phasic, competent and demonstrates normal augmentation. and demonstrates normal augmentation. POP V is compressible, spontaneous, phasic, competent POP V is compressible, spontaneous, phasic, competent and demonstrates normal augmentation. and demonstrates normal augmentation. T/P Trunk is compressible. T/P Trunk is compressible. PTV is compressible. PTV is compressible. RT PerV is compressible. LT PerV is compressible. Procedure This is a venous duplex using B-mode, color flow and spectral Doppler. Exam performed in department. The exam was diagnostic. A preliminary report was called and/or faxed to Dr. Craig's office. VL/Venous Duplex US - Serafin Extrem Interpretation Summary Deep veins of the lower extremities are bilaterally patent and compressible seg mentally. There is no evidence of deep vein thrombosis on either side. Valvular competence appears intact within the p roximal deep venous systems bilaterally. The great saphenous veins appear bilaterally patent and compressible segmentall y. Ordering Physician: Franky Craig Chi Referring Physician: Franky Craig Chi Performed By: Abad Dunaway, RVT
--- NOTE | 2024-08-09 12:11 | RAD_ITS ---
PROCEDURE: Left shoulder radiographs, four views 08/09/2024 REASON FOR EXAM: Left shoulder pain TECHNIQUE: Four views of the left shoulder were obtained. COMPARISON: None available FINDINGS: The bones are osteopenic. Included left lung is clear. No acute fracture or dislocation of the left shoulder. Mild degenerative change left acromioclavicular joint. The subacromial space is maintained. Mpit-cy-mofgljdu degenerative change of the left glenohumeral joint. RAD/Shoulder min 2 Views IMPRESSION: Osteopenia. No acute bony abnormality of the left shoulder. Degenerative changes of the left shoulder as above. The subacromial space is maintained. Reading Location: [facility]
[2024-08-09 13:00] LABS: Absolute Lymphocyte Count 1.41 X10^3/uL (0.83-4.51); Absolute Neutrophil Count 5.4 X10^3/uL (2.0-7.7); Basophil% 1.2 % (0-1); Eosinophil# 0.19 X10^3/uL; Eosinophils% 2.4 % (0-5); Hematocrit 29.2 % (40-54); Lymphocyte # 1.41 X10^3/ul (0.83-4.51); Lymphocyte % 17.5 % (19-41); Mean Corp Hgb Conc 30.8 g/dL (32-36); Mean Corpuscular Hgb 30.3 pg (27.0-32.0); Mean Corpuscular Volume 98.3 fL (80-94); Mean Platelet Vol. 12.2 fl (6.2-12.0); Monocyte# 0.78 X10^3/uL; Monocyte% 9.7 % (0-10); NRBC Flagged by Analyzer 0 % (0-5); Neutrophil % 66.8 % (47-70); Platelet Count 159 K/mm3 (150-450); RBC Distribution Width CV 17.2 % (11.6-14.6); RBC Distribution Width SD 61.7 fl (35.1-43.9); Red Blood Count 2.97 M/mm3 (4.6-6.2); White Blood Count 8.1 K/mm3 (4.4-11.0)
[2024-08-09 14:13] LABS: ALB/GLOB Ratio 1.4 RATIO (0.9-2.4); AST(SGOT) 18 U/L (<=37); Alanine Aminotransfer ALT/SGPT 10 U/L (<=46); Albumin, Serum 4.2 g/dL (3.4-4.8); Alkaline Phosphatase 86 U/L (40-129); Anion Gap 12 (5-15); BUN 44 mg/dL (4-19); BUN/Creat Ratio 20.4 RATIO (10-20); Calcium,Total 8.8 mg/dL (7.6-11.0); Chloride 113 mmol/L (98-108); Creatinine, Serum 2.14 mg/dL (0.70-1.20); EST Glomerular Filtration Rate 30 (>60); Globulin 3.1 g/dL (2.2-4.2); Glucose 131 mg/dL (70-99); Potassium 4.3 mmol/L (3.3-5.1); Protein, Total 7.3 g/dL (5.9-8.4); Sodium Level 139 mmol/L (133-145); Total Bilirubin 0.21 mg/dL (0.00-1.30)
[2024-08-09 14:16] LABS: Vitamin D,25 Hydroxy 18.7 ng/mL (30-100)
== END | disposition home or self-care (01) ==
LOC: CVS 11:53
PROVIDERS: PCP Family Medicine Geriatric Medicine; Referring Provider Family Medicine Geriatric Medicine; Visit Provider Family Medicine Geriatric Medicine
DX: M79.89 Other specified soft tissue disorders (principal); E11.65 Type 2 diabetes mellitus with hyperglycemia; M25.512 Pain in left shoulder; E55.9 Vitamin D deficiency, unspecified
CPT/HCPCS: 36415; 73030; 80053; 82306; 84443; 85025; 93970

== ENCOUNTER → 2024-08-30 | Outpatient (CLI) | payer MEDICARE, SELFPAY ==
[2024-08-30 18:01] LABS: Absolute Lymphocyte Count 1.94 X10^3/uL (0.83-4.51); Absolute Neutrophil Count 7.1 X10^3/uL (2.0-7.7); Basophil# 0.08 X10^3/uL; Basophil% 0.8 % (0-1); Eosinophil# 0.21 X10^3/uL; Hemoglobin 8.6 g/dL (13.0-16.5); Lymphocyte # 1.94 X10^3/ul (0.83-4.51); Lymphocyte % 18.4 % (19-41); Mean Corp Hgb Conc 30.7 g/dL (32-36); Mean Corpuscular Hgb 30.2 pg (27.0-32.0); Mean Corpuscular Volume 98.2 fL (80-94); Mean Platelet Vol. 12.3 fl (6.2-12.0); Monocyte# 0.98 X10^3/uL; Monocyte% 9.3 % (0-10); NRBC Flagged by Analyzer 0 % (0-5); Neutrophil # 7.07 X10^3/uL (2.7-7.7); Neutrophil % 67.2 % (47-70); Platelet Count 140 K/mm3 (150-450); RBC Distribution Width CV 16.7 % (11.6-14.6); RBC Distribution Width SD 60.5 fl (35.1-43.9); Red Blood Count 2.85 M/mm3 (4.6-6.2); White Blood Count 10.5 K/mm3 (4.4-11.0)
[2024-08-30 18:27] LABS: ALB/GLOB Ratio 1.5 RATIO (0.9-2.4); AST(SGOT) 15 U/L (<=37); Alanine Aminotransfer ALT/SGPT 17 U/L (<=46); Alkaline Phosphatase 91 U/L (40-129); Anion Gap 12 (5-15); BUN 42 mg/dL (4-19); BUN/Creat Ratio 18.8 RATIO (10-20); Calcium,Total 8.6 mg/dL (7.6-11.0); Carbon Dioxide 16.5 mmol/L (21.0-32.0); Chloride 111 mmol/L (98-108); Creatinine, Serum 2.22 mg/dL (0.70-1.20); EST Glomerular Filtration Rate 29 (>60); Globulin 2.7 g/dL (2.2-4.2); Glucose 147 mg/dL (70-99); Potassium 4.8 mmol/L (3.3-5.1); Protein, Total 6.7 g/dL (5.9-8.4); Sodium Level 139 mmol/L (133-145); Total Bilirubin 0.26 mg/dL (0.00-1.30)
== END | disposition home or self-care (01) ==
LOC: MTLAB 14:48
PROVIDERS: PCP Family Medicine Geriatric Medicine; Referring Provider Internal Medicine Rheumatology; Visit Provider Internal Medicine Rheumatology
DX: M06.4 Inflammatory polyarthropathy (principal); G56.03 Carpal tunnel syndrome, bilateral upper limbs; Z79.899 Other long term (current) drug therapy
CPT/HCPCS: 36415; 80053; 85025

== ENCOUNTER → 2024-11-07 | Outpatient (CLI) | payer MEDICARE, SELFPAY ==
[2024-11-07 13:04] LABS: Anion Gap 14 (5-15); BUN 31 mg/dL (4-19); BUN/Creat Ratio 12.7 RATIO (10-20); Calcium,Total 9.0 mg/dL (7.6-11.0); Carbon Dioxide 13.8 mmol/L (21.0-32.0); Chloride 110 mmol/L (98-108); Glucose 121 mg/dL (70-99); Potassium 4.4 mmol/L (3.3-5.1)
== END | disposition home or self-care (01) ==
LOC: MTLAB 09:28
PROVIDERS: PCP Family Medicine Geriatric Medicine; Referring Provider Family Medicine Geriatric Medicine; Visit Provider Family Medicine Geriatric Medicine
DX: E83.51 Hypocalcemia (principal)
CPT/HCPCS: 36415; 80048

== ENCOUNTER → 2024-11-09 | Outpatient (CLI) | payer MEDICARE, SELFPAY ==
[2024-11-09 12:13] LABS: Hematocrit 28.9 % (40-54); Hemoglobin 9.1 g/dL (13.0-16.5); Immature Granulocytes Count 0.290 X10^3/uL (0.0-0.0); Mean Corp Hgb Conc 31.5 g/dL (32-36); Mean Corpuscular Volume 93.5 fL (80-94); Mean Platelet Vol. 11.5 fl (6.2-12.0); NRBC Flagged by Analyzer 0 % (0-5); Platelet Count 215 K/mm3 (150-450); RBC Distribution Width CV 15.6 % (11.6-14.6); RBC Distribution Width SD 53.2 fl (35.1-43.9); Red Blood Count 3.09 M/mm3 (4.6-6.2); White Blood Count 13.4 K/mm3 (4.4-11.0)
[2024-11-09 13:54] LABS: Vitamin D,25 Hydroxy 23.8 ng/mL (30-100)
== END | disposition home or self-care (01) ==
LOC: POLAB3 11:46
PROVIDERS: PCP Family Medicine Geriatric Medicine; Visit Provider Family Medicine Geriatric Medicine
DX: E11.22 Type 2 diabetes mellitus with diabetic chronic kidney disease (principal); E55.9 Vitamin D deficiency, unspecified; I12.9 Hypertensive chronic kidney disease with stage 1 through stage 4 chronic kidney disease, or unspecified chronic kidney disease; N18.9 Chronic kidney disease, unspecified
CPT/HCPCS: 36415; 82306; 84443; 85025

== ENCOUNTER → 2024-11-17 | Outpatient (CLI) | payer MEDICARE, SELFPAY ==
[2024-11-17] VITALS (11 sets, daily range): BP systolic 110–153; BP diastolic 59–91; PULSE 68–78; RESP 18–20; TEMP 36.6; O2SAT 97–100; BMI 29.8
--- NOTE | 2024-11-17 07:43 | CT_ITS ---
EXAM: CT-guided liver biopsy. CLINICAL HISTORY: Mass in the right lobe of the liver. COMPARISON: Prior examination dated July 11, 2024. TECHNIQUE: The procedure as well as the benefits and possible complications including infection and bleeding were explained to the patient. Informed consent was obtained. The patient was in the supine position. Conscious sedation was performed. The patient received 2 mg of Versed and 50 mcg of fentanyl intravenously. Conscious sedation was started at 9:15 a.m. and terminated at 9:25 a.m.. The patient was independently monitored by the department nurse. An appropriate entry site was obtained. Following this, the skin was prepped and draped in usual sterile fashion. Following local anesthetic application, an 18 gauge core biopsy needle was placed into the lesion in the medial anterior aspect of the right lobe of the liver. 4 core biopsies were obtained. The pathologist deemed the specimen adequate. The patient tolerated the procedure well. Dose report: CTDI L volume: 26.5 mGy. DLP: 916.91 FINDINGS: Successful CT-guided core biopsy of the right lobe of the liver as described. CT/Biopsy/Inj or Needle Placement IMPRESSION: Successful CT-guided core biopsy of the right lobe of the liver as described. The patient tolerated the procedure well. Conscious sedation protocol was followed. Reading Location: [place] [id number]
--- NOTE | 2024-11-17 07:43 | CT_ITS ---
EXAM: CT-guided liver biopsy. CLINICAL HISTORY: Mass in the right lobe of the liver. COMPARISON: Prior examination dated July 11, 2024. TECHNIQUE: The procedure as well as the benefits and possible complications including infection and bleeding were explained to the patient. Informed consent was obtained. The patient was in the supine position. Conscious sedation was performed. The patient received 2 mg of Versed and 50 mcg of fentanyl intravenously. Conscious sedation was started at 9:15 a.m. and terminated at 9:25 a.m.. The patient was independently monitored by the department nurse. An appropriate entry site was obtained. Following this, the skin was prepped and draped in usual sterile fashion. Following local anesthetic application, an 18 gauge core biopsy needle was placed into the lesion in the medial anterior aspect of the right lobe of the liver. 4 core biopsies were obtained. The pathologist deemed the specimen adequate. The patient tolerated the procedure well. Dose report: CTDI L volume: 26.5 mGy. DLP: 916.91 FINDINGS: Successful CT-guided core biopsy of the right lobe of the liver as described. CT/Biopsy/Inj or Needle Placement IMPRESSION: Successful CT-guided core biopsy of the right lobe of the liver as described. The patient tolerated the procedure well. Conscious sedation protocol was followed. Reading Location: [place] [address]
[2024-11-17 07:47] LABS: Hematocrit 29.9 % (40-54); Hemoglobin 9.6 g/dL (13.0-16.5); Immature Granulocytes Count 0.140 X10^3/uL (0.0-0.0); Mean Corp Hgb Conc 32.1 g/dL (32-36); Mean Corpuscular Volume 91.2 fL (80-94); Mean Platelet Vol. 10.7 fl (6.2-12.0); NRBC Flagged by Analyzer 0 % (0-5); Platelet Count 193 K/mm3 (150-450); RBC Distribution Width CV 15.6 % (11.6-14.6); RBC Distribution Width SD 51.7 fl (35.1-43.9); Red Blood Count 3.28 M/mm3 (4.6-6.2); White Blood Count 12.1 K/mm3 (4.4-11.0)
[2024-11-17 07:56] LABS: Prothrombin Time (Protime)PT. 15.8 SECONDS (11.7-14.9)
[2024-11-17 07:58] LABS: Partial Thromboplast Time 30.7 Seconds (24.1-36.2)
[2024-11-17] MEDS: Midazolam 2 MG/2 ML Syringe IV (09:15)
[2024-11-17] MEDS: fentaNYL 100 MCG/2 ML Ampul IV (09:15)
[2024-11-17] MEDS: Lidocaine 2% (20 ml mdv) 20 ML Vial INFILT (09:25)
--- NOTE | 2024-11-17 09:30 | ASPIGT_PTH ---
PATIENT: CELIA BARNARD LOC: CT U#:[id number] AGE/SX: 84/M ROOM: RE11/17/[address]: Dr. Sunny Bruner MD : 1940 BED: DIS: 11/17/2024 SPEC #: [id number] RECD: 11/17/24 09:48 STATUS: RJ REKamran #: [id number] RADHA: 11/17/24 09:[address]: Sunny Bruner DEPT: SURGICAL PATHOLOGY RECD BY: Emilia Pineda ENTERED: 11/17/24 09:49 SP TYPE: ASP RAD OTHR DR: MD Dr. Franky Petersen Chi, MD Tissues: Liver, NOS Procedures: FNA Specimen Adequacy Immunohistochemical Stains Special Stain Group II Surgery Specimen Level IV Imprint (control) IHC Stain ADDITIONAL HEADER OPERATION: CT Guided Liver Biopsy PRE-OP DIAGNOSIS: Liver Nodules +PET TISSUE SUBMITTED: Right Lobe Liver Cores x 4 MICROSCOPIC DIAGNOSIS A. 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 Note: H&E sections reveal scant focal tumor at the end of one of the tissue cores. The tumor cells are positive for CK5/6, p40, and CK7 (weak/focal). The tumor cells are negative for CK20, VERITO-3, and PAX8. These findings support the histologic impression of squamous cell carcinoma. The previous diagnosis of squamous cell carcinoma of the bladder/prostate is noted ([facility] [id number]). COMMENT The specimen is evaluated at the time of CT by Dr. Thompson at 9:34 AM 11/17/24 Immediate Evaluation = #1- Malignant #2- Malignant MICROSCOPIC DESCRIPTION Slides are reviewed. All matched controls reacted appropriately. These tests were developed and their performance characteristics determined by [facility]. They may not have been cleared or approved by the U.S. Food and Drug Administration. The FDA has determined that such clearance or approval is not necessary.? The above immunohistochemical/dualISH?markers are reviewed by the Pathologist. GROSS DESCRIPTION A. Received in formalin labeled with the patient's name and date of . Designated as liver BX are 4 red-brown fragmented tissue cores, 1.5 cm to 1.9 cm in length by 0.1 cm in diameter. Entirely submitted in 2 cassettes. [place] 11/17/2024 CPT:60570,40021,12153q0
--- NOTE | 2024-11-17 09:30 | ASPIGT_PTH ---
PATIENT: CELIA BARNARD LOC: CT U#:[id number] AGE/SX: 84/M ROOM: RE11/17/[address]: Dr. Sunny Bruner MD : 1940 BED: DIS: 11/17/2024 SPEC #: [id number] RECD: 11/17/24 09:48 STATUS: RJ REKamran #: [id number] RADHA: 11/17/24 09:[address]: Sunny Bruner DEPT: SURGICAL PATHOLOGY RECD BY: Emilia Pineda ENTERED: 11/17/24 09:49 SP TYPE: ASP RAD OTHR DR: MD Dr. Franky Petersen Chi, MD Tissues: Liver, NOS Procedures: FNA Specimen Adequacy Immunohistochemical Stains Special Stain Group II Surgery Specimen Level IV Imprint (control) IHC Stain ADDITIONAL HEADER OPERATION: CT Guided Liver Biopsy PRE-OP DIAGNOSIS: Liver Nodules +PET TISSUE SUBMITTED: Right Lobe Liver Cores x 4 MICROSCOPIC DIAGNOSIS A. 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 Note: H&E sections reveal scant focal tumor at the end of one of the tissue cores. The tumor cells are positive for CK5/6, p40, and CK7 (weak/focal). The tumor cells are negative for CK20, VERITO-3, and PAX8. These findings support the histologic impression of squamous cell carcinoma. The previous diagnosis of squamous cell carcinoma of the bladder/prostate is noted ([facility] [id number]). COMMENT The specimen is evaluated at the time of CT by Dr. Thompson at 9:34 AM 11/17/24 Immediate Evaluation = #1- Malignant #2- Malignant MICROSCOPIC DESCRIPTION Slides are reviewed. All matched controls reacted appropriately. These tests were developed and their performance characteristics determined by [facility]. They may not have been cleared or approved by the U.S. Food and Drug Administration. The FDA has determined that such clearance or approval is not necessary.? The above immunohistochemical/dualISH?markers are reviewed by the Pathologist. GROSS DESCRIPTION A. Received in formalin labeled with the patient's name and date of . Designated as liver BX are 4 red-brown fragmented tissue cores, 1.5 cm to 1.9 cm in length by 0.1 cm in diameter. Entirely submitted in 2 cassettes. [place] 11/17/2024 CPT:29291,43290,83898o3
== END | disposition home or self-care (01) ==
PROVIDERS: Radiology Diagnostic Radiology; PCP Family Medicine Geriatric Medicine; Referring Provider Internal Medicine Hematology & Oncology; Visit Provider Internal Medicine Hematology & Oncology
DX: Z01.818 Encounter for other preprocedural examination (principal); C78.7 Secondary malignant neoplasm of liver and intrahepatic bile duct; C78.02 Secondary malignant neoplasm of left lung; C77.9 Secondary and unspecified malignant neoplasm of lymph node, unspecified; C67.8 Malignant neoplasm of overlapping sites of bladder
CPT/HCPCS: 47000; 36415; 77012; 85025; 85610; 85730; 88172; 88305; 88313; 88341; 88342; 99156; A4216

== ENCOUNTER → 2024-12-08 | Outpatient (CLI) | payer MEDICARE, SELFPAY | END | disposition home or self-care (01) | LOC: MTLAB 10:27 | PROVIDERS: PCP Family Medicine Geriatric Medicine | DX: N13.1 Hydronephrosis with ureteral stricture, not elsewhere classified (principal) | CPT/HCPCS: 36415; 82565 ==

== ENCOUNTER → 2024-12-15 | Outpatient (CLI) | payer MEDICARE, SELFPAY ==
--- NOTE | 2024-12-15 11:29 | US_ITS ---
PROCEDURE: KIDNEY AND BLADDER 12/15/2024 REASON FOR EXAM: HYDRONEPHROSIS EVAL TECHNIQUE: KIDNEY AND BLADDER COMPARISON: Prior study dated July 16, 2024. FINDINGS: Kidneys: Normal renal sizes, parenchymal thicknesses, and echotextures. [place]: Mild left hydronephrosis. A left-sided nephrostomy tube is seen. Cysts or Masses: No cysts or large solid renal masses. Other: A left-sided nephrostomy tube is visualized. RIGHT Kidney Size: 10 cm x 5.4 cm x 5.8 cm Volume: 164.65 mL Cortical Thickness (if discernible): 11 mm (>6mm is normal) LEFT Kidney Size: 10.9 cm x 5 cm x 5.1 cm Volume: 145.24 mL Cortical Thickness (if discernible): 11 mm (>6mm is normal) There has been surgical resection of the bladder. US/Kidney and Bladder IMPRESSION: Mild left hydronephrosis. A left-sided nephrostomy catheter is seen. Reading Location: [place] [id number]
== END | disposition home or self-care (01) ==
LOC: US 11:24
PROVIDERS: PCP Family Medicine Geriatric Medicine
DX: N13.1 Hydronephrosis with ureteral stricture, not elsewhere classified (principal)
CPT/HCPCS: 76770